=== PATIENT | male | born 1975 | race Caucasian/White ===

== ENCOUNTER 2021-12-14 11:13 | Emergency (ER) | payer SELFPAY ==
[2021-12-14 11:13] VITALS: BP 189/114; PULSE 82; RESP 16; TEMP 36.2; O2SAT 100; BMI 36.3
--- NOTE | 2021-12-14 11:20 | EKG12_ITS ---
Test Reason : CP Blood Pressure : / mmHG Vent. Rate : 091 BPM Atrial Rate : 091 BPM P-R Int : 198 ms QRS Dur : 104 ms QT Int : 352 ms P-R-T Axes : 037 050 055 degrees QTc Int : 432 ms Normal sinus rhythm Poor R wave progression Confirmed by ALAN YOUNG, FERNY ([id number]), editor index DELMA GRIFFITHS ([id number]) on 12/15/2021 11:05:49 AM Referred By: FAY Confirmed By:FERNY PHILLIPS MD
--- NOTE | 2021-12-14 11:20 | RAD_ITS ---
STUDY: X-RAY CHEST REASON FOR EXAM: Male, 46 years old. Chest pain TECHNIQUE: Single AP portable view of the chest. COMPARISON: None. FINDINGS: EKG electrodes are seen. The lungs are clear and expanded. There is no demonstrated pleural abnormality. There is borderline cardiomegaly. Normal mediastinum and daniela. Normal visualized pulmonary arteries. Normal visualized aortic arch and descending thoracic aorta. Normal visualized thoracic spine. Normal visualized ribs, clavicles, and shoulders. There is no demonstrated abnormality of the visualized soft tissue structures of the upper abdomen. RAD/Chest 1 View (Portable) IMPRESSION: Borderline cardiomegaly. Electronically Signed: Jairo Rain MD at 11:52 EST ,
[2021-12-14 11:56] VITALS: O2SAT 98
--- NOTE | 2021-12-14 12:10 | EDS_ITS ---
HPI History of Present Illness Chief Complaint: Chest Pain Narrative Narrative: 46-year-old male with history of hypertension and hyperlipidemia presenting with lower chest pain which he states feels sharp in nature. The pain is intermittent. He describes it as worsening with food. He states I eat like a freight train and went on.about 10 minutes later my lower chest hurts all the way down to my mid abdomen. He states that after his food settles pain improves. He denies history of acid reflux, gastric ulcers. Patient states he is not vomiting. He denies constipation or diarrhea. Patient was recently started on lisinopril 10 mg p.o. daily about 3 days ago. He notes that his blood pressure is elevated today. His father states that sometimes his blood pressure levels often sometimes is elevated. Patient does not have any cardiac history that he knows of. [facility] Medical History HTN (hypertension) Home Medications lisinopril 10 mg PO DAILY #30 tab 04/30/16 [Rx Last Taken Unknown] losartan 50 mg PO DAILY #30 tab 12/14/21 [Rx Last Taken Unknown] Allergy/AdvReac Type Severity Reaction Status Date / Time Penicillins [PCN] Allergy Hives Verified 12/14/21 11:17 Social History Smoking Status: Current every day smoker tobacco type: cigarettes ROS ROS ED Constitutional Constitutional ED: Denies chills or fever(s) Eyes Eyes: Denies blurry vision or change in vision ENT ENT ED: Denies rhinorrhea or sore throat Cardiovascular Cardiovascular: Reports as per HPI Respiratory/Chest Respiratory/Chest: Denies cough or dyspnea Gastrointestinal Gastrointestinal: Reports abdominal pain; Denies constipation, diarrhea, nausea or vomiting Genitourinary Genitourinary ED: Denies dysuria or hematuria Musculoskeletal Musculoskeletal: Denies arthralgias or myalgias Neurologic Neurologic: Denies headache(s) or weakness Psychiatric Psychiatric: Denies anxiety or depression EXAM Physical Exam Const Vital Signs: 12/14/21 11:13 12/14/21 11:35 12/14/21 11:56 Temperature 97.2 F L Temperature Source Temporal Pulse Rate 82 Respiratory Rate 16 Respiratory Effort Normal Non-Labored Blood Pressure 189/114 H Blood Pressure Mean 139 Pulse Ox 100 98 Oxygen Delivery Method Room Air Room Air 12/14/21 13:30 12/14/21 15:05 Temperature Temperature Source Pulse Rate 81 85 Respiratory Rate 16 22 H Respiratory Effort Blood Pressure 166/104 H 183/81 H Blood Pressure Mean 124 115 Pulse Ox 99 97 Oxygen Delivery Method Room Air Room Air Positive obese General Appearance ED: NAD; Negative for pallor Nutritional Appearance: obese HEENT Reports moist mucous membranes normocephalic and atraumatic Eyes PERRL and EOMs intact bilaterally Resp normal respiratory effort Effort and Inspection: respiratory distress Cardio regular rate and regular rhythm GI normal to inspection, nondistended, normoactive bowel sounds Extremity normal to inspection General Extremety ED: Negative for edema or tenderness General Extremity: Negative for edema Neuro oriented x3 Sensorium / Orientation: awake and alert Psych mental status grossly normal Skin General Skin Exam: Negative for jaundice or pallor Heart Score History: Slightly/Non-Suspicious ECG: Normal Age: >45 - <65 years Risk Factors: 1 or 2 Risk Factors Score: 2 MDM MDM MDM Narrative Medical decision making narrative: Patient presenting with chest pain which does appear to be more epigastric in nature and he does state that it radiates to his mid abdomen. Says after he eats heavily. He describes the pain as sharp. EKG obtained on arrival shows a normal sinus rhythm with a ventricular of 81 bpm without sign of ischemic change or dysrhythmia. Chest x-ray on my interpretation shows no acute cardiopulmonary process however he does appear to have borderline cardiomegaly. Radiologist agree. Patient is given 5 hydralazine and his blood pressure did not respond. He was followed with 10 mg of hydralazine his blood pressure is now 183/81. He feels improved. Patient was given follow-up with Dr. Thompson outpatient. I do not believe 10 mg of lisinopril is high enough dose and that will states previously on. I had his father go home and get his medications because he states he was prescribed a antihypertensive medicine 3 days ago and he returns with prednisone and doxycycline. Apparently the patient has not been on blood pressure medicine for months. Patient will be started on losartan 50 mg p.o. daily and given a prescription for this. He is counseled to keep a blood pressure diary. If he has any new or worsening symptoms he is to return to the ED. Impression: 1. Chest pain 2. Elevated blood pressure?established [id number] Lab Data Attestation: I reviewed the patient's lab results. Labs: Laboratory Results - last 24 hr 12/14/21 12/14/21 12/14/21 11:35 11:35 11:35 WBC 9.6 RBC 5.20 Hgb 15.3 Hct 44.5 MCV 85.6 MCH 29.4 MCHC 34.4 RDW Std Deviation 41.4 RDW Coeff of Desmond 13.2 Plt Count 307 MPV 10.8 Immature Gran % (Auto) 0.300 Neut % (Auto) 52.0 Lymph % (Auto) 39.7 [place] % (Auto) 5.3 Eos % (Auto) 2.0 Baso % (Auto) 0.7 Absolute Neuts (auto) 5.0 Absolute Lymphs (auto) 3.83 Nucleated RBC % 0 Sodium 140 Potassium 4.1 Chloride 107 Carbon Dioxide 28.0 Anion Gap 5 BUN 15 Creatinine 0.84 Estim Creat Clear Calc 107.44 Est GFR (MDRD) Af Amer 127 Est GFR (MDRD) Non-Af 105 BUN/Creatinine Ratio 17.8 Glucose 112 H Calcium 8.9 Total Bilirubin 0.30 Direct Bilirubin < 0.05 AST 20 ALT 24 Alkaline Phosphatase 69 Troponin I High Sens 7 Total Protein 7.5 Albumin 3.4 Globulin 4.1 Lipase 12/14/21 12/14/21 11:35 13:22 WBC RBC Hgb Hct MCV MCH MCHC RDW Std Deviation RDW Coeff of Desmond Plt Count MPV Immature Gran % (Auto) Neut % (Auto) Lymph % (Auto) [place] % (Auto) Eos % (Auto) Baso % (Auto) Absolute Neuts (auto) Absolute Lymphs (auto) Nucleated RBC % Sodium Potassium Chloride Carbon Dioxide Anion Gap BUN Creatinine Estim Creat Clear Calc Est GFR (MDRD) Af Amer Est GFR (MDRD) Non-Af BUN/Creatinine Ratio Glucose Calcium Total Bilirubin Direct Bilirubin AST ALT Alkaline Phosphatase Troponin I High Sens 7 Total Protein Albumin Globulin Lipase 125 Radiography Diagnostic Testing: Clinical Impression(s) from Imaging Studies Chest X-Ray 12/14/21 11:20 IMPRESSION: Borderline cardiomegaly. Electronically Signed: Jairo Rain MD at 11:52 EST , Discharge Plan Triage Chief Complaint: Chest Pain ED Provider: Ryan Newman Dx/Rx/DC Orders Instructions: High Blood Pressure Risk Factors, What Is High Blood Pressure?, ED Chest Pain, Uncertain Cause, ED Hypertension, Established Prescriptions: New losartan 50 mg tablet 50 mg PO DAILY Qty: 30 RF: 0 No Action lisinopril 10 MG tablet 10 mg PO DAILY Qty: 30 RF: 0 Primary Care Provider: Care Physician,No Primary Referrals: Jose R Thompson MD [STAFF PHYSICIAN] - As soon as possible Care Physician,No Primary [Primary Care Provider] - Disposition Disposition: Home, Self Care
[2021-12-14 12:22] LABS: Absolute Lymphocyte Count 3.83 X10^3/uL (0.83-4.51); Basophil# 0.07 X10^3/uL; Basophil% 0.7 % (0-1); Eosinophil# 0.19 X10^3/uL; Hematocrit 44.5 % (40-54); Hemoglobin 15.3 g/dL (13.0-16.5); Lymphocyte # 3.83 X10^3/ul (0.83-4.51); Lymphocyte % 39.7 % (19-41); Mean Corp Hgb Conc 34.4 g/dL (32-36); Mean Corpuscular Hgb 29.4 pg (27.0-32.0); Mean Corpuscular Volume 85.6 fL (80-94); Mean Platelet Vol. 10.8 fl (6.2-12.0); Monocyte# 0.51 X10^3/uL; Monocyte% 5.3 % (0-10); NRBC Flagged by Analyzer 0 % (0-5); Neutrophil # 5.01 X10^3/uL (2.7-7.7); Platelet Count 307 K/mm3 (150-450); RBC Distribution Width CV 13.2 % (11.6-14.6); RBC Distribution Width SD 41.4 fl (35.1-43.9); White Blood Count 9.6 K/mm3 (4.4-11.0)
[2021-12-14 12:34] LABS: Anion Gap 5 (5-15); BUN 15 mg/dL (7-18); BUN/Creat Ratio 17.8 RATIO (10-20); Calcium,Total 8.9 mg/dL (8.5-10.1); Chloride 107 mmol/L (98-107); Creatinine, Serum 0.84 mg/dL (0.70-1.30); EST Glomerular Filtration Rate 105 mL/min (>60); Est Glom Filt Rate - Afr Amer 127 mL/min (>60); Estimated Creatinine Clearance 107.44 ml/min; Glucose 112 mg/dL (74-106); Potassium 4.1 mmol/L (3.5-5.1); Sodium Level 140 mmol/L (136-145); Troponin-I HS 7 pg/mL (3.0-78.0)
[2021-12-14] MEDS: hydrALAZINE 20 MG/ML Vial 5 MG IV (12:45)
[2021-12-14 12:46] LABS: Lipase 125 U/L (73-393)
[2021-12-14 12:51] LABS: AST(SGOT) 20 U/L (15-37); Alanine Aminotransfer ALT/SGPT 24 U/L (16-61); Albumin, Serum 3.4 g/dL (3.2-5.0); Alkaline Phosphatase 69 U/L (45-117); Bilirubin, Direct < 0.05 mg/dL (0.00-0.30); Globulin 4.1 g/dL (2.2-4.2); Protein, Total 7.5 g/dL (6.4-8.2)
[2021-12-14 13:30] VITALS: BP 166/104; PULSE 81; RESP 16; O2SAT 99
[2021-12-14 13:55] LABS: Troponin-I HS 7 pg/mL (3.0-78.0)
[2021-12-14] MEDS: hydrALAZINE 20 MG/ML Vial 10 MG IV (14:14)
[2021-12-14 15:05] VITALS: BP 183/81; PULSE 85; RESP 22; O2SAT 97
[2021-12-14 17:06] VITALS: BP 182/75; PULSE 80; RESP 20; O2SAT 97
[2021-12-14] MEDS: Losartan Potassium 50 MG Tablet PO (17:26)
[2021-12-14 17:28] VITALS: BP 171/111; PULSE 89; RESP 15; O2SAT 98
== END 2021-12-14 17:29 | disposition home or self-care (01) ==
PROVIDERS: Emergency Provider Student in an Organized Health Care Education/Training Program; Visit Provider Student in an Organized Health Care Education/Training Program
DX: R07.9 Chest pain, unspecified (principal); I10 Essential (primary) hypertension; F17.210 Nicotine dependence, cigarettes, uncomplicated; E78.5 Hyperlipidemia, unspecified
CPT/HCPCS: 71045; 80048; 80076; 83690; 84484; 85025; 93005; 96374; 96376; 99285

== ENCOUNTER 2022-11-15 21:37 | Emergency (ER) | payer MEDICARE, MEDICAID, SELFPAY ==
[2022-11-15 21:37] VITALS: BP 178/107; PULSE 96; RESP 18; TEMP 36.8; O2SAT 96; BMI 33.5
--- NOTE | 2022-11-15 21:58 | EX.ED.VIS.UR ---
HPI HPI - URI History of Present Illness Chief Complaint: Cough Informant: patient Onset/Context/Timing Onset: Weeks (1) Context: Gradual Onset Timing: Continuous Quality: prod cough Current Severity: Moderate Maximum Severity: Moderate Worsened by: - (nothing) Associated Symptoms Associated Symptoms: Positive for Nasal Congestion, Headache, Shortness of Breath (at times), Chest Pain (just sternal soreness from coughing) and Productive Cough; Negative for Sinus Pressure, Myalgias, Nausea, Vomiting, Diarrhea or Hemoptysis Narrative Narrative: Patient has had a cough of the past week, some white sputum on occasion no blood. Mild shortness of breath off and on, he is a smoker. No fevers or chills. He feels warm right now but he is afebrile at 98.2. Mild headache, no myalgias. No known sick contacts. Vaccinated against COVID but no flu shot this year. He has some chest soreness and bilateral rib soreness from lots of coughing, it started after days of lots of coughing. No leg swelling. No angina symptoms. ROS ROS ED Constitutional Constitutional ED: Denies chills or fever(s) ENT ENT ED: Reports nasal congestion and rhinorrhea; Denies sore throat Cardiovascular Cardiovascular: Denies chest pain or palpitations Respiratory/Chest Respiratory/Chest: Reports cough, dyspnea and sputum Gastrointestinal Gastrointestinal: Denies abdominal pain, diarrhea, nausea or vomiting Genitourinary Genitourinary ED: Denies dysuria or hematuria Musculoskeletal Musculoskeletal: Denies myalgias or neck pain Integumentary Denies abscess or rash Neurologic Neurologic: Reports headache(s); Denies paresthesias or weakness Psychiatric Psychiatric: Denies depression or suicidal thoughts Endocrine Endocrinology: Denies polydipsia or polyuria [facility] Medical History Asthma HTN (hypertension) Seizure Home Medications lisinopril 10 mg tablet 10 mg PO DAILY #30 tabs 04/30/16 [Rx Last Taken Unknown] losartan 50 mg tablet 50 mg PO DAILY #30 tabs 12/14/21 [Rx Last Taken Unknown] albuterol sulfate 90 mcg/actuation aerosol inhaler 2 puff inhalation Q4H PRN shortness of breath or wheezing #6.7 grams 11/15/22 [Rx Last Taken Unknown] benzonatate 100 mg capsule 200 mg PO TID PRN PRN Cough #20 CAPSULES 11/15/22 [Rx Last Taken Unknown] Allergy/AdvReac Type Severity Reaction Status Date / Time Penicillins [PCN] Allergy Hives Verified 11/15/22 21:40 Social History Smoking Status: Current every day smoker tobacco type: cigarettes EXAM Physical Exam Const Vital Signs: 11/15/22 21:37 11/15/22 21:44 11/15/22 22:23 Temperature 98.2 F Temperature Source Temporal Pulse Rate 96 97 Respiratory Rate 18 22 H Respiratory Effort Normal Respiratory Depth Respiratory Pattern Tachypnea Blood Pressure 178/107 H Blood Pressure Mean 130 Pulse Ox 96 Oxygen Delivery Method Room Air 11/15/22 22:23 Temperature Temperature Source Pulse Rate Respiratory Rate 26 H Respiratory Effort Normal Non-Labored Short of Breath Respiratory Depth Shallow Respiratory Pattern Tachypnea Blood Pressure Blood Pressure Mean Pulse Ox 93 Oxygen Delivery Method Room Air Positive well nourished, well developed and obese Constitutional Narrative: Well-appearing. Conversive in full sentences. General Appearance ED: well developed and NAD Nutritional Appearance: obese HEENT Reports moist mucous membranes normocephalic and atraumatic Face and Sinus: Negative for sinus tenderness Throat: Negative for posterior oropharynx abnormal Eyes PERRL and EOMs intact bilaterally Neck no lymphadenopathy, supple and no meningeal signs Resp normal respiratory effort Resp Narrative: Inspiratory and expiratory wheezes no rales or rhonchi, no distress. Cardio no murmurs Rate: regular rate Rhythm: regular rhythm GI non-tender and non-distended Auscultation: normoactive bowel sounds Back/Spine no CVA tenderness and normal ROM Extremity normal to inspection and full ROM Neuro oriented x3, CN's II-XII intact bilaterally and no sensory deficits noted Sensorium / Orientation: alert Motor Exam: strength 5/5 throughout Psych mental status grossly normal Skin Lesions: no lesions Rashes: no rashes MDM MDM MDM Narrative Medical decision making narrative: 2 view chest x-ray was obtained and on my interpretation shows no acute infiltrates or pleural effusions. Radiology in agreement negative for anything acute. COVID and influenza swabs are negative. Patient was treated with an albuterol aerosol he does feel better. Reassured, I suspect he has wheezy bronchitis no antibiotics indicated. We will prescribe him something for his cough in addition to albuterol inhaler, supportive care advised we discussed reasons to return. He needs to follow-up for blood pressure recheck since his pressure is 178/107. Counseled on smoking cessation. Radiography Diagnostic Testing: Clinical Impression(s) from Imaging Studies Chest X-Ray 11/15/22 22:09 IMPRESSION: No radiographic evidence of acute cardiopulmonary disease. Electronically Signed: Donald Kaiser MD at 22:22 EST , Discharge Plan Triage Chief Complaint: Cough ED Provider: Ellis Harris Dx/Rx/DC Orders Clinical Impression: Acute wheezy bronchitis, Episode of hypertension Instructions: Blood Pressure Check Steps, ED Bronchitis with Wheezing (Adult) Prescriptions: New albuterol sulfate 90 mcg/actuation HFA aerosol inhaler 2 puff inhalation Q4H PRN (Reason: shortness of breath or wheezing) Qty: 6.7 0RF benzonatate [benzonatate] 100 mg capsule 200 mg PO TID PRN PRN (Reason: Cough) Qty: 20 0RF No Action lisinopril 10 MG tablet 10 mg PO DAILY Qty: 30 0RF losartan 50 mg tablet 50 mg PO DAILY Qty: 30 0RF Primary Care Provider: Care Physician,No Primary Referrals: Care Physician,No Primary [Primary Care Provider] - Doctor,Your [Non-Staff] - 1 Week if not improving Disposition Disposition: Home, Self Care
--- NOTE | 2022-11-15 22:09 | RAD_ITS ---
INDICATION: cough, sob EXAMINATION/TECHNIQUE: X-RAY - XR Chest 2 Views COMPARISON: December 14, 2021 FINDINGS: LINES/DEVICES: None. LUNGS: No consolidation, edema or effusion. No pneumothorax. MEDIASTINUM AND CARDIOVASCULAR STRUCTURES: Cardiac silhouette not enlarged. Central airways and mediastinal contour are unremarkable. BONES AND SOFT TISSUES: Unremarkable. RAD/Chest PA and Lateral IMPRESSION: No radiographic evidence of acute cardiopulmonary disease. Electronically Signed: Donald Kaiser MD at 22:22 EST ,
[2022-11-15 22:23] VITALS: PULSE 97; RESP 22; RESP 26; O2SAT 93
[2022-11-15] MEDS: Albuterol 2.5 MG/3 ML VIAL.NEB. INHALATION (22:23)
[2022-11-15 23:31] VITALS: BP 163/100; PULSE 85; RESP 18; O2SAT 94
== END 2022-11-15 23:34 | disposition home or self-care (01) ==
PROVIDERS: Emergency Provider Emergency Medicine; Visit Provider Emergency Medicine
DX: J20.9 Acute bronchitis, unspecified (principal); F17.210 Nicotine dependence, cigarettes, uncomplicated; R51.9 Headache, unspecified; I10 Essential (primary) hypertension; J45.909 Unspecified asthma, uncomplicated; E66.9 Obesity, unspecified; Z20.822 Contact with and (suspected) exposure to COVID-19
CPT/HCPCS: 71046; 87428; 94640; 99252; 99282; G0463

== ENCOUNTER → 2022-12-12 | Outpatient (CLI) | payer MEDICARE, MEDICAID, SELFPAY ==
[2022-12-12 10:13] LABS: Absolute Lymphocyte Count 2.86 X10^3/uL (0.83-4.51); Absolute Neutrophil Count 3.5 X10^3/uL (2.0-7.7); Basophil# 0.06 X10^3/uL; Basophil% 0.8 % (0-1); Eosinophil# 0.27 X10^3/uL; Eosinophils% 3.7 % (0-5); Hematocrit 43.9 % (40-54); Hemoglobin 14.1 g/dL (13.0-16.5); Lymphocyte # 2.86 X10^3/ul (0.83-4.51); Lymphocyte % 39.3 % (19-41); Mean Corp Hgb Conc 32.1 g/dL (32-36); Mean Corpuscular Hgb 28.8 pg (27.0-32.0); Mean Corpuscular Volume 89.6 fL (80-94); Mean Platelet Vol. 9.9 fl (6.2-12.0); Monocyte# 0.59 X10^3/uL; Monocyte% 8.1 % (0-10); NRBC Flagged by Analyzer 0 % (0-5); Neutrophil # 3.45 X10^3/uL (2.7-7.7); Neutrophil % 47.5 % (47-70); Platelet Count 273 K/mm3 (150-450); RBC Distribution Width CV 12.8 % (11.6-14.6); RBC Distribution Width SD 41.6 fl (35.1-43.9); White Blood Count 7.3 K/mm3 (4.4-11.0)
[2022-12-12 11:05] LABS: ALB/GLOB Ratio 0.8 RATIO (0.9-2.4); AST(SGOT) 13 U/L (15-37); Alanine Aminotransfer ALT/SGPT 18 U/L (16-61); Albumin, Serum 3.5 g/dL (3.2-5.0); Alkaline Phosphatase 55 U/L (45-117); Anion Gap 7 (5-15); BUN 24 mg/dL (7-18); BUN/Creat Ratio 30.3 RATIO (10-20); Calcium,Total 9.3 mg/dL (8.5-10.1); Chloride 106 mmol/L (98-107); Cholesterol 195 mg/dL (200); Creatinine, Serum 0.79 mg/dL (0.70-1.30); EST Glomerular Filtration Rate 112 mL/min (>60); Est Glom Filt Rate - Afr Amer 135 mL/min (>60); Globulin 4.4 g/dL (2.2-4.2); Glucose 111 mg/dL (74-106); High Density Lipoprotein 33 mg/dL; Potassium 3.8 mmol/L (3.5-5.1); Protein, Total 7.9 g/dL (6.4-8.2); Sodium Level 138 mmol/L (136-145); Thyroid Stim Hormone (TSH) 2.44 uIU/mL (0.358-3.74); Triglycerides 185 mg/dL; Very Low Density Lipoprotein 37 mg/dL (5-40)
== END | disposition home or self-care (01) ==
LOC: MFPLAB 08:35
PROVIDERS: PCP Family Medicine; Referring Provider Family Medicine; Visit Provider Family Medicine
DX: I10 Essential (primary) hypertension (principal)
CPT/HCPCS: 36415; 80053; 80061; 84443; 85025

== ENCOUNTER 2023-02-20 21:32 | Emergency (ER) | payer MEDICARE, MEDICAID, SELFPAY ==
[2023-02-20 21:34] VITALS: BP 188/124; PULSE 95; RESP 18; TEMP 36.1; O2SAT 95; BMI 40.2
[2023-02-20 22:06] LABS: Absolute Lymphocyte Count 3.08 X10^3/uL (0.83-4.51); Basophil# 0.06 X10^3/uL; Basophil% 0.6 % (0-1); Eosinophil# 0.08 X10^3/uL; Eosinophils% 0.8 % (0-5); Hematocrit 42.3 % (40-54); Hemoglobin 14.1 g/dL (13.0-16.5); Lymphocyte # 3.08 X10^3/ul (0.83-4.51); Mean Corp Hgb Conc 33.3 g/dL (32-36); Mean Corpuscular Volume 86.9 fL (80-94); Mean Platelet Vol. 9.3 fl (6.2-12.0); Monocyte% 4.2 % (0-10); NRBC Flagged by Analyzer 0 % (0-5); Neutrophil # 5.97 X10^3/uL (2.7-7.7); Neutrophil % 62.2 % (47-70); Platelet Count 263 K/mm3 (150-450); RBC Distribution Width CV 13.2 % (11.6-14.6); RBC Distribution Width SD 41.7 fl (35.1-43.9); Red Blood Count 4.87 M/mm3 (4.6-6.2); White Blood Count 9.6 K/mm3 (4.4-11.0)
[2023-02-20 22:27] LABS: ALB/GLOB Ratio 0.9 RATIO (0.9-2.4); AST(SGOT) 19 U/L (15-37); Alanine Aminotransfer ALT/SGPT 23 U/L (16-61); Albumin, Serum 3.8 g/dL (3.2-5.0); Alkaline Phosphatase 64 U/L (45-117); Anion Gap 3 (5-15); BUN 17 mg/dL (7-18); BUN/Creat Ratio 14.4 RATIO (10-20); Calcium,Total 9.6 mg/dL (8.5-10.1); Chloride 109 mmol/L (98-107); Creatinine, Serum 1.18 mg/dL (0.70-1.30); EST Glomerular Filtration Rate 70 mL/min (>60); Est Glom Filt Rate - Afr Amer 85 mL/min (>60); Estimated Creatinine Clearance 73.13 ml/min; Globulin 4.1 g/dL (2.2-4.2); Glucose 109 mg/dL (74-106); Potassium 4.6 mmol/L (3.5-5.1); Protein, Total 7.9 g/dL (6.4-8.2); Sodium Level 139 mmol/L (136-145)
--- NOTE | 2023-02-20 23:13 | EDS_ITS ---
HPI History of Present Illness Chief Complaint: Abd Pain Narrative Narrative: 47-year-old male here with intra-abdominal pain nausea vomiting. Patient states symptoms started today. Notes initially started with diffuse abdominal pain. He does note nausea and vomiting. Denies any hematemesis, bilious vomitus. Denies history of abdominal surgeries. Notes last bowel movement was 2 days ago with no melena or hematochezia. Denies history abdominal surgeries. Denies any chest pain or shortness of breath. Denies any recent fever. Denies any recent travel or sick contacts. PFSH PFS Medical History Asthma HTN (hypertension) Seizure Home Medications lisinopril 10 mg tablet 10 mg PO DAILY #30 tabs 04/30/16 [Rx Last Taken Unknown] losartan 50 mg tablet 50 mg PO DAILY #30 tabs 12/14/21 [Rx Last Taken Unknown] albuterol sulfate 90 mcg/actuation aerosol inhaler 2 puff inhalation Q4H PRN shortness of breath or wheezing #6.7 grams 11/15/22 [Rx Last Taken Unknown] benzonatate 100 mg capsule 200 mg PO TID PRN PRN Cough #20 CAPSULES 11/15/22 [Rx Last Taken Unknown] ondansetron 4 mg disintegrating tablet 4 mg PO Q8H PRN nausea and vomiting 3 days #9 tabs 02/21/23 [Rx Last Taken Unknown] Allergy/AdvReac Type Severity Reaction Status Date / Time Penicillins [PCN] Allergy Hives Verified 02/20/23 21:33 Social History Smoking Status: Current every day smoker tobacco type: cigarettes ROS ROS ED ROS Narrative Constitutional: Denies fever HEENT: Denies sore throat Neck: Denies neck pain Cardiovascular: Denies chest pain, syncope Respiratory: Denies shortness of breath GI: Abdominal pain nausea vomiting : Denies changes in urinary habits Musculoskeletal: Denies muscle or joint pain Neurologic: Denies numbness weakness or loss of sensation Skin denies rash EXAM Physical Exam Narrative Exam Narrative: Nursing triage notes reviewed, Vital signs reviewed Constitutional: please see mdm HENT: MMM Eyes: Pupils equal round and reactive to light, Extraocular muscles intact Neck: No stridor, no JVD, full neck ROM Lungs: Clear to auscultation, No wheezing or rales. No increased work of breathing, no conversational dyspnea, no accessory muscle use, no nasal flaring. No respiratory distress noted Heart: Regular rate and rhythm, No murmurs, No rubs and No gallops, 2+ distal pulses (radial, femoral, posterior tibial) in all extremities Abdomen: Soft, diffuse tenderness but no rigidity, rebound or guarding, no obvious peritoneal signs, no palpable pulsatile abdominal masses, no auscultated abdominal bruit : No CVAT Extremities: No edema Neuro: No focal neurological deficits, cranial nerves II through XII intact, 5/5 strength in all extremities. Intact sensation to light touch in all extremities, 2+ reflexes bilateral patella dens. Normal gait. No ataxia. Skin: No rash or lesions noted Const Vital Signs: 02/20/23 21:34 Temperature 97 F L Temperature Source Oral Pulse Rate 95 Respiratory Rate 18 Blood Pressure 188/124 H Blood Pressure Mean 145 Pulse Ox 95 Oxygen Delivery Method Room Air MDM MDM MDM Narrative Medical decision making narrative: Chief Complaint: Abdominal pain nausea vomiting External records reviewed: No recent advanced imaging of the abdomen noted I considered the following differential diagnosis: Acute surgical pathology the abdomen, perforation, pancreatitis, hepatobiliary pathology, dehydration, electrolyte abnormality Patient was hypertensive initially, afebrile, nontoxic-appearing. Exam was not consistent with acute surgical pathology. I obtained a broad lab work-up to further elucidate etiology of the patient's complaints. Labs not evidence of systemic inflammation, signs of pancreatitis, hepatobiliary pathology, significant electrolyte abnormalities, significant anemia. Repeat abdominal exam was benign. I have a low suspicion as patient is abnormal life limiting etiology. Repeat his vital signs blood pressure improved. He is able to pass p.o. challenge he is appropriate for discharge home. Factors affecting care: Hypertension Social determinants of health: Poor health literacy History obtained from others: None Shared decision making: I will have a discussion with the patient and or visitors regarding risk/benefits of further testing or admission. They will be made aware of of the risk/benefits inherent in this decision they will be given the opportunity to voice understanding. Consults: none Lab Data Attestation: I reviewed the patient's lab results. Lab results narrative: CBC without leukocytosis, severe anemia, no thrombocytopenia. BMP without evidence of significant electrolyte abnormalities, no anion gap, no acute kidney injury. Lipase is wnl indicating no pancreatic inflammation. LFTs show no evidence of hepatobiliary pathology. Labs: Laboratory Results - last 24 hr 02/20/23 02/20/23 02/20/23 22:00 22:00 22:00 WBC 9.6 RBC 4.87 Hgb 14.1 Hct 42.3 MCV 86.9 MCH 29.0 MCHC 33.3 RDW Std Deviation 41.7 RDW Coeff of Desmond 13.2 Plt Count 263 MPV 9.3 Immature Gran % (Auto) 0.200 Neut % (Auto) 62.2 Lymph % (Auto) 32.0 [place] % (Auto) 4.2 Eos % (Auto) 0.8 Baso % (Auto) 0.6 Absolute Neuts (auto) 6.0 Absolute Lymphs (auto) 3.08 Nucleated RBC % 0 Sodium 139 Potassium 4.6 Chloride 109 H Carbon Dioxide 27.0 Anion Gap 3 L BUN 17 Creatinine 1.18 Estim Creat Clear Calc 73.13 Est GFR (MDRD) Af Amer 85 Est GFR (MDRD) Non-Af 70 BUN/Creatinine Ratio 14.4 Glucose 109 H Calcium 9.6 Total Bilirubin 0.40 AST 19 ALT 23 Alkaline Phosphatase 64 Total Protein 7.9 Albumin 3.8 Globulin 4.1 Albumin/Globulin Ratio 0.9 Lipase 29 Discharge Plan Triage Chief Complaint: Abd Pain ED Provider: Hermes Richmond Dx/Rx/DC Orders Instructions: ED Abdominal Pain Unkn Cause Male... Prescriptions: New ondansetron 4 mg tablet,disintegrating 4 mg PO Q8H PRN (Reason: nausea and vomiting) 3 Days Qty: 9 0RF No Action lisinopril 10 MG tablet 10 mg PO DAILY Qty: 30 0RF losartan 50 mg tablet 50 mg PO DAILY Qty: 30 0RF albuterol sulfate 90 mcg/actuation HFA aerosol inhaler 2 puff inhalation Q4H PRN (Reason: shortness of breath or wheezing) Qty: 6.7 0RF benzonatate [benzonatate] 100 mg capsule 200 mg PO TID PRN PRN (Reason: Cough) Qty: 20 0RF Primary Care Provider: Ame Fenton Referrals: Ame Fenton, DO [Primary Care Provider] - Activity Restrictions/Additional Instructions: Thank you for trusting us with your care today! Please take Tylenol (2 pills, 650 mg), ibuprofen (2 pills, 400 mg) every 6 hours as needed for pain and fever control. Please take Zofran as needed for nausea vomiting control. Please return to the emergency department if your symptoms change or worsen. Please follow with your primary care physician for further outpatient evaluation and management. Disposition Disposition: Home, Self Care
[2023-02-20] MEDS: 0.9% Normal Saline 1,000 ML 999 ML IV (23:40)
[2023-02-20] MEDS: Ondansetron 4 MG/2 ML Vial IV (23:40)
[2023-02-20 23:48] LABS: Lipase 29 U/L (13-75)
--- NOTE | 2023-02-21 00:20 | ED.RN ---
Pt refused IV morphine with pain 0/10. Dr. Jordan notified.
[2023-02-21 00:31] VITALS: BP 157/118; PULSE 77; RESP 17; O2SAT 97
== END 2023-02-21 00:45 | disposition home or self-care (01) ==
PROVIDERS: Emergency Provider Emergency Medicine; PCP Family Medicine; Visit Provider Emergency Medicine
DX: R10.84 Generalized abdominal pain (principal); R11.2 Nausea with vomiting, unspecified; F17.210 Nicotine dependence, cigarettes, uncomplicated; I10 Essential (primary) hypertension; J45.909 Unspecified asthma, uncomplicated
CPT/HCPCS: 80053; 83690; 85025; 96361; 96374; 99283; J7030; A4216; J2405

== ENCOUNTER 2023-04-19 11:09 | Emergency (ER) | payer MEDICARE, MEDICAID, SELFPAY ==
[2023-04-19 11:11] VITALS: BP 160/107; PULSE 105; RESP 16; TEMP 36.7; O2SAT 97; BMI 38.0
[2023-04-19 11:18] VITALS: BP 177/99; PULSE 98; RESP 18; O2SAT 96
--- NOTE | 2023-04-19 11:36 | EDS_ITS ---
HPI <DIEGO Corley - Last Filed: 04/19/23 13:13> History of Present Illness Chief Complaint: Abd Pain Narrative Narrative: Patient presenting today after an episode of vomiting that occurred this afternoon that had streaks of bright red blood in it. He denies any coffee- ground emesis. He reports that he was walking to his family member's house and stopped to use the bathroom at a laundromat because he felt nauseous, and had one episode of vomiting. He no longer feels nauseous, nor does he have abdominal pain. He reports that he has had intermittent epigastric abdominal pain and burning pain in his esophagus for over 2 months that is worse after eating. He has no history of gastric ulcers, denies any blood in his stool. He does take aspirin twice daily, denies alcohol use. He denies fever, chills, urinary symptoms, chest pain, SOB. PFSH <DIEGO Corley - Last Filed: 04/19/23 13:13> [facility] Medical History Asthma HTN (hypertension) Seizure Home Medications lisinopril 10 mg tablet 10 mg PO DAILY #30 tabs 04/30/16 [Rx Last Taken Unknown] losartan 50 mg tablet 50 mg PO DAILY #30 tabs 12/14/21 [Rx Last Taken Unknown] albuterol sulfate 90 mcg/actuation aerosol inhaler 2 puff inhalation Q4H PRN shortness of breath or wheezing #6.7 grams 11/15/22 [Rx Last Taken Unknown] benzonatate 100 mg capsule 200 mg PO TID PRN PRN Cough #20 CAPSULES 11/15/22 [Rx Last Taken Unknown] ondansetron 4 mg disintegrating tablet 4 mg PO Q8H PRN nausea and vomiting 3 days #9 tabs 02/21/23 [Rx Last Taken Unknown] pantoprazole 40 mg tablet,delayed release (Protonix) 40 mg PO DAILY #30 tabs 04/19/23 [Rx Last Taken Unknown] Allergy/AdvReac Type Severity Reaction Status Date / Time Penicillins [PCN] Allergy Hives Verified 04/19/23 11:17 Social History Smoking Status: Current every day smoker tobacco type: cigarettes ROS <DIEGO Corley - Last Filed: 04/19/23 13:13> ROS ED Constitutional Constitutional ED: Denies chills or fever(s) Cardiovascular Cardiovascular: Denies chest pain Respiratory/Chest Respiratory/Chest: Denies cough or dyspnea Gastrointestinal Gastrointestinal: Reports nausea and vomiting; Denies abdominal pain, constipation or diarrhea Genitourinary Genitourinary ED: Denies dysuria, hematuria or urinary frequency Musculoskeletal Musculoskeletal: Denies arthralgias or myalgias Integumentary Denies abscess, Abrasions or rash Neurologic Neurologic: Denies weakness Psychiatric Psychiatric: Denies anxiety or depression EXAM <DIEGO Corley - Last Filed: 04/19/23 13:13> Physical Exam Const Vital Signs: 04/19/23 11:11 04/19/23 11:18 04/19/23 12:19 Temperature 98.1 F Temperature Source Temporal Pulse Rate 105 H 98 68 Respiratory Rate 16 18 Blood Pressure 160/107 H 177/99 H 141/75 H Blood Pressure Mean 124 125 97 Pulse Ox 97 96 92 Oxygen Delivery Method Room Air Room Air Room Air 04/19/23 12:52 Temperature Temperature Source Pulse Rate 71 Respiratory Rate 18 Blood Pressure 131/98 H Blood Pressure Mean Pulse Ox 96 Oxygen Delivery Method Positive well nourished, well developed and no apparent distress General Appearance ED: well developed HEENT Reports normocephalic and head/scalp atraumatic Mouth ED: Yes moist mucous membranes normal Eyes PERRL and EOMs intact bilaterally Neck full ROM and supple Chest Wall inspection of chest normal Resp normal respiratory effort and clear to auscultation bilaterally Cardio regular rate and regular rhythm GI soft to palpation, non-tender, non-distended and no masses Back/Spine normal ROM and normal to inspection Extremity normal to inspection and full ROM Neuro oriented x3, CN's II-XII intact bilaterally, moves all extremities, no focal motor deficits and no sensory deficits noted Sensorium / Orientation: awake and alert Psych mental status grossly normal and thought process normal Skin no rashes or lesions noted and no wounds <Dr. Sergio Ellis DO - Last Filed: 04/19/23 16:44> Physical Exam Const Vital Signs: 04/19/23 11:11 04/19/23 11:18 04/19/23 12:19 Temperature 98.1 F Temperature Source Temporal Pulse Rate 105 H 98 68 Respiratory Rate 16 18 Blood Pressure 160/107 H 177/99 H 141/75 H Blood Pressure Mean 124 125 97 Pulse Ox 97 96 92 Oxygen Delivery Method Room Air Room Air Room Air 04/19/23 12:52 Temperature Temperature Source Pulse Rate 71 Respiratory Rate 18 Blood Pressure 131/98 H Blood Pressure Mean Pulse Ox 96 Oxygen Delivery Method [facility] <DIEGO Corley - Last Filed: 04/19/23 13:13> [facility] Narrative Medical decision making narrative: Patient presenting today due to epigastric abdominal pain that he has had for close to 2 months, and an episode of nausea and vomiting that occurred today. He saw streaks of bright red blood in his vomit, denies coffee-ground emesis. He has a burning sensation in his esophagus after eating but is not on a PPI. Abdominal pain is worsened after eating as well. He reports he is not currently having any abdominal pain. I have considered GERD, peptic ulcer, gastric ulcer, pancreatitis. Labs to be obtained to rule out leukocytosis, anemia electrolyte abnormality, hepatobiliary etiology, and to check a lipase. Labs overall are unremarkable. Patient was given Zofran and Protonix here. I have given him a referral with Dr. Pitts and a prescription for Protonix. Lab Data Attestation: I reviewed the patient's lab results. Labs: Laboratory Results - last 24 hr 04/19/23 04/19/23 11:30 11:30 WBC 7.3 RBC 4.83 Hgb 13.9 Hct 41.8 MCV 86.5 MCH 28.8 MCHC 33.3 RDW Std Deviation 40.7 RDW Coeff of Desmond 13.1 Plt Count 254 MPV 10.0 Immature Gran % (Auto) 0.400 Neut % (Auto) 65.2 Lymph % (Auto) 26.2 Ashley % (Auto) 5.6 Eos % (Auto) 1.9 Baso % (Auto) 0.7 Absolute Neuts (auto) 4.7 Absolute Lymphs (auto) 1.91 Nucleated RBC % 0 Sodium 142 Potassium 4.2 Chloride 109 H Carbon Dioxide 25.0 Anion Gap 8 BUN 18 Creatinine 0.95 Estim Creat Clear Calc 90.84 Est GFR (MDRD) Af Amer 110 Est GFR (MDRD) Non-Af 91 BUN/Creatinine Ratio 19.0 Glucose 128 H Calcium 9.3 Total Bilirubin 0.30 AST 16 ALT 17 Alkaline Phosphatase 69 Total Protein 7.7 Albumin 3.6 Globulin 4.1 Albumin/Globulin Ratio 0.9 Lipase 27 <Dr. Sergio Ellis, DO - Last Filed: 04/19/23 16:44> [facility] Lab Data Labs: Laboratory Results - last 24 hr 04/19/23 04/19/23 11:30 11:30 WBC 7.3 RBC 4.83 Hgb 13.9 Hct 41.8 MCV 86.5 MCH 28.8 MCHC 33.3 RDW Std Deviation 40.7 RDW Coeff of Desmond 13.1 Plt Count 254 MPV 10.0 Immature Gran % (Auto) 0.400 Neut % (Auto) 65.2 Lymph % (Auto) 26.2 Ashley % (Auto) 5.6 Eos % (Auto) 1.9 Baso % (Auto) 0.7 Absolute Neuts (auto) 4.7 Absolute Lymphs (auto) 1.91 Nucleated RBC % 0 Sodium 142 Potassium 4.2 Chloride 109 H Carbon Dioxide 25.0 Anion Gap 8 BUN 18 Creatinine 0.95 Estim Creat Clear Calc 90.84 Est GFR (MDRD) Af Amer 110 Est GFR (MDRD) Non-Af 91 BUN/Creatinine Ratio 19.0 Glucose 128 H Calcium 9.3 Total Bilirubin 0.30 AST 16 ALT 17 Alkaline Phosphatase 69 Total Protein 7.7 Albumin 3.6 Globulin 4.1 Albumin/Globulin Ratio 0.9 Lipase 27 Treatment and Re-Evaluation :: I have personally performed a face to face assessment of the patient and have reviewed the ATTYANA Note. I performed a substantive portion of the visit including all aspects of the following. My feliciano findings include: History: Patient presents with abdominal pain that became worse today. Patient states she had some nausea and vomiting with this. Patient states she has some streaks of blood in his emesis. Patient denies any martín hematemesis. Patient denies any coffee-ground emesis. Patient denies any melena or hematochezia. Patient states his pain is localized to the epigastric area. Patient states it radiates up into his chest. Patient denies any fevers or chills. Exam: Vital signs are stable. Patient is afebrile. Patient is in no acute distress. Oral mucosa is pink and moist. Neck is supple. Trachea is midline. There is no JVD. Heart was regular rate and rhythm. Lungs are clear and equal bilaterally. Abdomen is soft. Bowel sounds are normal. There is tenderness of the epigastric area. There is no rebound or guarding noted. Cranial nerves II through XII are intact. There are no focal motor or sensory deficits. Medical Decision Making: Differential diagnosis includes gastric ulcer, peptic ulcer, GERD, gastritis, and pancreatitis. CBC will be obtained to assess for leukocytosis and anemia. Comprehensive metabolic profile will be obtained to assess for electrolyte abnormality, renal function, and hepatic function. Lipase will be obtained to assess for pancreatitis. Patient was given Zofran and Protonix here. CBC was reviewed and was essentially within normal limits. Comprehensive metabolic profile was reviewed and was within normal limits. Lipase was reviewed and was normal. Patient was advised of his findings. Patient was instructed to follow-up with his primary care physician in 5 to 7 days. Patient was given a prescription for Protonix. Patient was instructed to return if worse in any way. Patient understood and was agreeable with the plan. All questions were answered. Discharge Plan Triage Chief Complaint: Abd Pain Other Complaint: Nausea/Vomiting ED Midlevel Provider: Aida Mendoza ED Provider: Sergio Ellis Dx/Rx/DC Orders Clinical Impression: Nausea & vomiting, Abdominal pain, Bloody emesis Instructions: ED Upper GI Bleeding (Stable) Prescriptions: New pantoprazole [Protonix] 40 mg tablet,delayed release (DR/EC) 40 mg PO DAILY Qty: 30 0RF No Action lisinopril 10 MG tablet 10 mg PO DAILY Qty: 30 0RF losartan 50 mg tablet 50 mg PO DAILY Qty: 30 0RF albuterol sulfate 90 mcg/actuation HFA aerosol inhaler 2 puff inhalation Q4H PRN (Reason: shortness of breath or wheezing) Qty: 6.7 0RF benzonatate [benzonatate] 100 mg capsule 200 mg PO TID PRN PRN (Reason: Cough) Qty: 20 0RF ondansetron 4 mg tablet,disintegrating 4 mg PO Q8H PRN (Reason: nausea and vomiting) 3 Days Qty: 9 0RF Primary Care Provider: Ame Fenton Referrals: Ame Fenton DO [Primary Care Provider] - 3-5 Days Tommy Pitts DO [Med Staff - Active Staff] - 5-7 Days Activity Restrictions/Additional Instructions: Please follow-up with your PCP and the GI doctor. Return for any worsening of symptoms. Disposition Disposition: Home, Self Care Discharge Date/Time: 04/19/23 12:53
[2023-04-19] MEDS: Pantoprazole Sodium 40 MG Tablet PO (11:39)
[2023-04-19] MEDS: Ondansetron 4 MG/2 ML Vial IV (11:39)
[2023-04-19 11:40] LABS: Absolute Lymphocyte Count 1.91 X10^3/uL (0.83-4.51); Absolute Neutrophil Count 4.7 X10^3/uL (2.0-7.7); Basophil# 0.05 X10^3/uL; Basophil% 0.7 % (0-1); Eosinophil# 0.14 X10^3/uL; Eosinophils% 1.9 % (0-5); Hematocrit 41.8 % (40-54); Hemoglobin 13.9 g/dL (13.0-16.5); Lymphocyte # 1.91 X10^3/ul (0.83-4.51); Lymphocyte % 26.2 % (19-41); Mean Corp Hgb Conc 33.3 g/dL (32-36); Mean Corpuscular Hgb 28.8 pg (27.0-32.0); Mean Corpuscular Volume 86.5 fL (80-94); Monocyte# 0.41 X10^3/uL; Monocyte% 5.6 % (0-10); NRBC Flagged by Analyzer 0 % (0-5); Neutrophil # 4.74 X10^3/uL (2.7-7.7); Neutrophil % 65.2 % (47-70); Platelet Count 254 K/mm3 (150-450); RBC Distribution Width CV 13.1 % (11.6-14.6); RBC Distribution Width SD 40.7 fl (35.1-43.9); Red Blood Count 4.83 M/mm3 (4.6-6.2); White Blood Count 7.3 K/mm3 (4.4-11.0)
[2023-04-19 12:08] LABS: ALB/GLOB Ratio 0.9 RATIO (0.9-2.4); AST(SGOT) 16 U/L (15-37); Alanine Aminotransfer ALT/SGPT 17 U/L (16-61); Albumin, Serum 3.6 g/dL (3.2-5.0); Alkaline Phosphatase 69 U/L (45-117); Anion Gap 8 (5-15); BUN 18 mg/dL (7-18); Calcium,Total 9.3 mg/dL (8.5-10.1); Chloride 109 mmol/L (98-107); Creatinine, Serum 0.95 mg/dL (0.70-1.30); EST Glomerular Filtration Rate 91 mL/min (>60); Est Glom Filt Rate - Afr Amer 110 mL/min (>60); Estimated Creatinine Clearance 90.84 ml/min; Globulin 4.1 g/dL (2.2-4.2); Glucose 128 mg/dL (74-106); Lipase 27 U/L (13-75); Potassium 4.2 mmol/L (3.5-5.1); Protein, Total 7.7 g/dL (6.4-8.2); Sodium Level 142 mmol/L (136-145)
[2023-04-19 12:19] VITALS: BP 141/75; PULSE 68; O2SAT 92
[2023-04-19 12:52] VITALS: BP 131/98; PULSE 71; RESP 18; O2SAT 96
== END 2023-04-19 12:53 | disposition home or self-care (01) ==
PROVIDERS: Physician Assistant; Emergency Provider Emergency Medicine; PCP Family Medicine; Visit Provider Emergency Medicine
DX: R10.13 Epigastric pain (principal); K92.0 Hematemesis; I10 Essential (primary) hypertension; F17.210 Nicotine dependence, cigarettes, uncomplicated; J45.909 Unspecified asthma, uncomplicated; Z79.82 Long term (current) use of aspirin
CPT/HCPCS: 80053; 83690; 85025; 96374; 99284; A4216; J2405

== ENCOUNTER 2023-10-03 22:32 | Emergency (ER) | payer MEDICARE, MEDICAID, SELFPAY ==
[2023-10-03 22:33] VITALS: BP 141/87; PULSE 109; RESP 18; TEMP 36.8; O2SAT 98; BMI 38.8
--- NOTE | 2023-10-03 23:14 | ED.VIS.GI ---
HPI HPI - GI History of Present Illness Chief Complaint: GI Bleed Informant: patient Narrative Narrative: Patient states that he vomited once with blood earlier this evening. He feels fine now. Patient states he was bowling. He was not drinking. He does not drink anymore. He had stepped outside for a minute. He suddenly felt nauseated. He vomited. He states he vomited blood 1 time. It was red. There is no black material. He does not have abdominal pain. He has no nausea now. He has not been having black or bloody stools. No change in his diet. It sounds like he is on Protonix and is taking it. He has had an EGD. He is not exactly sure when that was. He is not on any blood thinners including no aspirin. [facility] Medical History Asthma HTN (hypertension) Seizure Home Medications lisinopril 10 mg tablet 10 mg PO DAILY #30 tabs 04/30/16 [Rx Last Taken Unknown] losartan 50 mg tablet 50 mg PO DAILY #30 tabs 12/14/21 [Rx Last Taken Unknown] albuterol sulfate 90 mcg/actuation aerosol inhaler 2 puff inhalation Q4H PRN shortness of breath or wheezing #6.7 grams 11/15/22 [Rx Last Taken Unknown] benzonatate 100 mg capsule 200 mg (2 x 100 mg) PO TID PRN PRN Cough #20 CAPSULES 11/15/22 [Rx Last Taken Unknown] ondansetron 4 mg disintegrating tablet 4 mg PO Q8H PRN nausea and vomiting 3 days #9 tabs 02/21/23 [Rx Last Taken Unknown] pantoprazole 40 mg tablet,delayed release (Protonix) 40 mg PO DAILY #30 tabs 04/19/23 [Rx Last Taken Unknown] sucralfate 1 gram tablet (Carafate) 1 g PO BID #14 tabs 10/04/23 [Rx Last Taken Unknown] Allergy/AdvReac Type Severity Reaction Status Date / Time Penicillins [PCN] Allergy Hives Verified 10/03/23 22:33 Social History Smoking Status: Current every day smoker tobacco type: cigarettes ROS ROS ED ROS Narrative A complete review of systems was performed and is negative except as documented in the history of present illness. Some specific details below. Constitutional: No recent fevers or chills. EYE: No visual complaints or pain. ENT: No difficulty swallowing. No swelling. No pain. CV: No chest pain or palpitations. Respiratory: No dyspnea. No hemoptysis. No difficulty taking breaths. GI: Please see history of present illness. : No frequency dysuria or hematuria. Musculoskeletal: No recent trauma. No pains. Skin: No rash. Nondiaphoretic. Neuro: No weakness or numbness. Endocrine: No polyuria or polydipsia. EXAM Physical Exam Narrative Exam Narrative: CONSTITUTIONAL: Patient is nontoxic in appearance. The patient looks comfortable. Does not look pale or diaphoretic HEENT: No notable trauma. Mucous membranes moist. No sinus tenderness. No indication of pain with swallowing. No nasal bleeding. EYES: No conjunctival injection. No proptosis. No pallor. No icterus. CARDIOVASCULAR: Regular rate. Regular rhythm. No notable murmur. No JVD. RESPIRATORY: No respiratory distress. Breathing is unlabored. No wheezes. No rhonchi. No rales. No pain with a deep breath. GASTROINTESTINAL: Not distended. Bowel sounds are normal. No tenderness. No guarding. No rebound. No palpable mass. No bruit. Overall his abdomen is completely benign. GENITOURINARY: No tenderness over the bladder. No CVA tenderness. MUSCULOSKELETAL: Atraumatic. No peripheral edema. No cord. No tenderness along the deep venous system. No asymmetry. NEUROLOGICAL: Patient is alert and appropriate. No focal deficit noted. SKIN: No noted rashes. No diaphoresis. PSYCHIATRIC: Patient is calm. Mood is appropriate. Const Vital Signs: 10/03/23 22:33 Temperature 98.2 F Temperature Source Temporal Pulse Rate 109 H Respiratory Rate 18 Blood Pressure 141/87 H Blood Pressure Mean 105 Pulse Ox 98 Oxygen Delivery Method Room Air MDM MDM MDM Narrative Medical decision making narrative: Patient CBC is normal other than a minimal nonspecific elevation of the white count at 11.6. Patient's electrolytes are overall normal. Minimal elevation in the BUN. Patient's liver function test are normal. I went back checked the patient. He is still asymptomatic. He has no nausea or pain. The event has not recurred. His exam is still benign. I explained he should stay on his Protonix. I will write for some Carafate. If he has recurrent bleeding or develops pain fevers or other symptoms he should return. Otherwise he can follow-up with his physician. Lab Data Attestation: I reviewed the patient's lab results. Labs: Laboratory Results - last 24 hr 10/03/23 10/04/23 22:58 00:20 WBC 11.6 H RBC 5.29 Hgb 15.0 Hct 44.5 MCV 84.1 MCH 28.4 MCHC 33.7 RDW Std Deviation 38.6 RDW Coeff of Desmond 12.7 Plt Count 278 MPV 10.3 Immature Gran % (Auto) 0.300 Neut % (Auto) 64.7 Lymph % (Auto) 28.1 [place] % (Auto) 5.4 Eos % (Auto) 0.9 Baso % (Auto) 0.6 Absolute Neuts (auto) 7.5 Absolute Lymphs (auto) 3.27 Nucleated RBC % 0 Sodium Cancelled 137 Potassium Cancelled 4.3 Chloride Cancelled 105 Carbon Dioxide Cancelled 28.0 Anion Gap Cancelled 4 L BUN Cancelled 20 H Creatinine Cancelled 1.01 Estim Creat Clear Calc Cancelled 84.53 Est GFR (MDRD) Af Amer Cancelled 102 Est GFR (MDRD) Non-Af Cancelled 84 BUN/Creatinine Ratio Cancelled 19.8 Glucose Cancelled 105 Calcium Cancelled 9.3 Total Bilirubin Cancelled 0.30 AST Cancelled 14 L ALT Cancelled 19 Alkaline Phosphatase Cancelled 61 Total Protein Cancelled 7.9 Albumin Cancelled 3.9 Globulin Cancelled 4.0 Albumin/Globulin Ratio Cancelled 1.0 Discharge Plan Triage Chief Complaint: GI Bleed ED Provider: Erwin Huitron Dx/Rx/DC Orders Clinical Impression: Family history of GERD, Hematemesis Instructions: ED Upper GI Bleeding (Stable) Prescriptions: New sucralfate [Carafate] 1 gram tablet 1 g PO BID Qty: 14 0RF No Action lisinopril 10 MG tablet 10 mg PO DAILY Qty: 30 0RF losartan 50 mg tablet 50 mg PO DAILY Qty: 30 0RF albuterol sulfate 90 mcg/actuation HFA aerosol inhaler 2 puff inhalation Q4H PRN (Reason: shortness of breath or wheezing) Qty: 6.7 0RF benzonatate [benzonatate] 100 mg capsule 200 mg PO TID PRN PRN (Reason: Cough) Qty: 20 0RF ondansetron 4 mg tablet,disintegrating 4 mg PO Q8H PRN (Reason: nausea and vomiting) 3 Days Qty: 9 0RF pantoprazole [Protonix] 40 mg tablet,delayed release (DR/EC) 40 mg PO DAILY Qty: 30 0RF Primary Care Provider: Ame Fenton Referrals: Ame Fenton, [Primary Care Provider] - 3-5 Days Disposition Disposition: Home, Self Care
[2023-10-03] MEDS: Pantoprazole Sodium 80 MG in 0.9% Normal Saline (50mL Bag) 15 ML 420 MG IV BOLUS (23:24)
[2023-10-03 23:42] LABS: Absolute Lymphocyte Count 3.27 X10^3/uL (0.83-4.51); Absolute Neutrophil Count 7.5 X10^3/uL (2.0-7.7); Basophil# 0.07 X10^3/uL; Basophil% 0.6 % (0-1); Eosinophil# 0.11 X10^3/uL; Eosinophils% 0.9 % (0-5); Hematocrit 44.5 % (40-54); Lymphocyte # 3.27 X10^3/ul (0.83-4.51); Lymphocyte % 28.1 % (19-41); Mean Corp Hgb Conc 33.7 g/dL (32-36); Mean Corpuscular Hgb 28.4 pg (27.0-32.0); Mean Corpuscular Volume 84.1 fL (80-94); Mean Platelet Vol. 10.3 fl (6.2-12.0); Monocyte# 0.63 X10^3/uL; Monocyte% 5.4 % (0-10); NRBC Flagged by Analyzer 0 % (0-5); Neutrophil # 7.52 X10^3/uL (2.7-7.7); Neutrophil % 64.7 % (47-70); Platelet Count 278 K/mm3 (150-450); RBC Distribution Width CV 12.7 % (11.6-14.6); RBC Distribution Width SD 38.6 fl (35.1-43.9); Red Blood Count 5.29 M/mm3 (4.6-6.2); White Blood Count 11.6 K/mm3 (4.4-11.0)
[2023-10-04 00:52] LABS: AST(SGOT) 14 U/L (15-37); Alanine Aminotransfer ALT/SGPT 19 U/L (16-61); Albumin, Serum 3.9 g/dL (3.2-5.0); Alkaline Phosphatase 61 U/L (45-117); Anion Gap 4 (5-15); BUN 20 mg/dL (7-18); BUN/Creat Ratio 19.8 RATIO (10-20); Calcium,Total 9.3 mg/dL (8.5-10.1); Chloride 105 mmol/L (98-107); Creatinine, Serum 1.01 mg/dL (0.70-1.30); EST Glomerular Filtration Rate 84 mL/min (>60); Est Glom Filt Rate - Afr Amer 102 mL/min (>60); Estimated Creatinine Clearance 84.53 ml/min; Glucose 105 mg/dL (74-106); Potassium 4.3 mmol/L (3.5-5.1); Protein, Total 7.9 g/dL (6.4-8.2); Sodium Level 137 mmol/L (136-145)
[2023-10-04 01:22] VITALS: BP 136/75; PULSE 89; RESP 18
== END 2023-10-04 01:22 | disposition home or self-care (01) ==
PROVIDERS: Emergency Provider Emergency Medicine; PCP Family Medicine; Visit Provider Emergency Medicine
DX: K92.0 Hematemesis (principal); I10 Essential (primary) hypertension; F17.210 Nicotine dependence, cigarettes, uncomplicated; J45.909 Unspecified asthma, uncomplicated; Z79.899 Other long term (current) drug therapy
CPT/HCPCS: 80053; 85025; 96365; 99282; A4216; J3490

== ENCOUNTER 2023-11-19 18:50 | Emergency (ER) | payer MEDICARE, MEDICAID, SELFPAY ==
[2023-11-19 18:51] VITALS: BP 160/115; PULSE 104; RESP 18; TEMP 36.1; O2SAT 97; BMI 40.2
--- NOTE | 2023-11-19 19:28 | RAD_ITS ---
STUDY: X-RAY - LEFT HAND, ATTENTION FOR FINGER REASON FOR EXAM: Male, 48 years old. Crush injury distal tip TECHNIQUE: 3 view(s) of the finger were obtained. COMPARISON: None. FINDINGS: Normal metacarpal head. Normal metacarpophalangeal joint. Normal proximal phalanx. Normal middle phalanx. Normal distal phalanx. Normal proximal interphalangeal joint. Normal distal interphalangeal joint. RAD/Finger(s) Min 2 Views IMPRESSION: Normal x-ray examination of the finger. Electronically Signed: Apolinar Thompson MD at 20:19 EST ,
[2023-11-19] MEDS: Diphth,Pertuss(Acell),Tet Vac 0.5 ML Vial IM (19:42)
--- NOTE | 2023-11-19 19:43 | EDS_ITS ---
HPI History of Present Illness Chief Complaint: Laceration Informant: patient and family Narrative Narrative: Patient accidentally got his left dominant hand ring finger tip stuck between a pipe and a toolbox that he was pushing. Last tetanus unknown. Had small amount of bleeding which is stopped. No other injury. No loss of function but it does hurt to move it or press or touch it. This happened shortly before arrival. [facility] Medical History Asthma HTN (hypertension) Seizure Home Medications lisinopril 10 mg tablet 10 mg PO DAILY #30 tabs 04/30/16 [Rx Last Taken Unknown] losartan 50 mg tablet 50 mg PO DAILY #30 tabs 12/14/21 [Rx Last Taken Unknown] albuterol sulfate 90 mcg/actuation aerosol inhaler 2 puff inhalation Q4H PRN shortness of breath or wheezing #6.7 grams 11/15/22 [Rx Last Taken Unknown] benzonatate 100 mg capsule 200 mg (2 x 100 mg) PO TID PRN PRN Cough #20 CAPSULES 11/15/22 [Rx Last Taken Unknown] ondansetron 4 mg disintegrating tablet 4 mg PO Q8H PRN nausea and vomiting 3 days #9 tabs 02/21/23 [Rx Last Taken Unknown] pantoprazole 40 mg tablet,delayed release (Protonix) 40 mg PO DAILY #30 tabs 04/19/23 [Rx Last Taken Unknown] sucralfate 1 gram tablet (Carafate) 1 g PO BID #14 tabs 10/04/23 [Rx Last Taken Unknown] Allergy/AdvReac Type Severity Reaction Status Date / Time Penicillins [PCN] Allergy Hives Verified 11/19/23 18:51 Social History Smoking Status: Current every day smoker tobacco type: cigarettes ROS ROS ED Constitutional Constitutional ED: Denies chills or fever(s) Respiratory/Chest Respiratory/Chest: Denies cough Gastrointestinal Gastrointestinal: Denies nausea or vomiting Musculoskeletal Musculoskeletal: Reports other Details: See history of present illness Integumentary Reports other Details: There is a break in the skin near the nail of the left ring finger. Neurologic Neurologic: Denies paresthesias or weakness Hematologic/Lymphatic Hematologic/Lymphatic: Denies easy bleeding or easy bruising Allergic/Immunologic Allergic/Immunologic ED: Denies urticaria EXAM Physical Exam Narrative Exam Narrative: General: Patient awake alert sitting comfortably on bed. HEENT shows no sign of trauma Cardiorespiratory shows easy unlabored breathing. Extremities do show some clotted blood around the tip of the left ring finger. It is mostly on the dorsal medial side. It looks like there may be laceration right at the edge of the nail. It does not look like there is anything that can be sutured but we are going to clean this to get a slightly better view. Patient stating that he really does not think he can be sutured and does not want it sutured. His range of motion including both deep and profundus as well as the extensor tendons are intact. Sensations seems intact all the way out to the tip. Const Vital Signs: 11/19/23 18:51 Temperature 96.9 F L Temperature Source Temporal Pulse Rate 104 H Respiratory Rate 18 Blood Pressure 160/115 H Blood Pressure Mean 130 Pulse Ox 97 Oxygen Delivery Method Room Air MDM MDM MDM Narrative Medical decision making narrative: FingerMy independent interpretation of the patient's three-view x-ray of the left index finger shows slight cortical angulation but no gross fracture. No significant comminution even if there is a small fracture. Final reading shows no acute process. Was soaked scrubbed and cleaned. There is nothing that opens up or needs to be sutured. He does not want anything sutured. This should heal well. I do not think he needs antibiotics. We discussed reasons to return and signs of infection. Discharge Plan Triage Chief Complaint: Laceration ED Provider: Erwin Huitron Dx/Rx/DC Orders Clinical Impression: Crush injury to finger Instructions: ED Crush Injury, Hand Prescriptions: No Action lisinopril 10 MG tablet 10 mg PO DAILY Qty: 30 0RF losartan 50 mg tablet 50 mg PO DAILY Qty: 30 0RF albuterol sulfate 90 mcg/actuation HFA aerosol inhaler 2 puff inhalation Q4H PRN (Reason: shortness of breath or wheezing) Qty: 6.7 0RF benzonatate [benzonatate] 100 mg capsule 200 mg PO TID PRN PRN (Reason: Cough) Qty: 20 0RF ondansetron 4 mg tablet,disintegrating 4 mg PO Q8H PRN (Reason: nausea and vomiting) 3 Days Qty: 9 0RF pantoprazole [Protonix] 40 mg tablet,delayed release (DR/EC) 40 mg PO DAILY Qty: 30 0RF sucralfate [Carafate] 1 gram tablet 1 g PO BID Qty: 14 0RF Primary Care Provider: Ame Fenton Referrals: Ame Fenton, DO [Primary Care Provider] - 1 Week if not improving Disposition Disposition: Home, Self Care Capacity Legal Color Making Supervisor Reflex Medical hold order details:: IF a medical hold is selected below, a suggested order for a MEDICAL HOLD will reflex upon signing the document. Next of kin: [place] law dictates a PRIORITY LIST for identifying legal decision-maker/legal next of kin in the following order (LNOK): 1st: The patient?s legal guardian, if any 2nd: The patient's spouse (if status is questionable, consult Risk Management) 3rd: The patient?s adult child(marianela) (majority, if multiple children) 4th: The patient?s parents 5th: The patient?s adult siblings (majority, if multiple children siblings)
--- OUTSIDE RECORDS SUMMARY | 2023-11-19 20:30 | XMS RPT_ITS | CCD ---
Author Name Unknown Address [address] [place] [address] Organization [facility] Results Test Name Value Interpretation Reference Range Facil ity Progress note 12-13-2021 Note Date & Type Note Facility 12-13-2021 Note HNO ID: [id number] Author: Laurence Wilkes PA-C Service: ? Author Type: Physician [employer] Director Type: Progress Notes Filed: 12/13/2021 6:36 PM Note Text: This note was created using [employer]. Subjective Jamar Dutton is a 46 year old male. HPI Patient presents with the chief complaint of chest pain for 2 weeks.He is a poor historian and father brought in room after initial interview with patient permission. Father's history of his son's complaint difficult to ascertain as well. Patient was diagnosed with covid19 here on 11/18. He states it hurts when he smokes a cigarette and sometimes with a breath, but cannot articulate what makes his pain worse. He has has some gi discomfort after bowel movements as well. No blood in stool. He denies personal CV history. His mother had cva in past. Patient does not currently follow with a pcp. The pain in his chest is sharp and will last 15-20 minutes. He denies history of dvt or pe. No recent surgeries or travel. No CA history. No leg pain or swelling. Review of Systems Constitutional: Negative. HENT: Negative. Respiratory: Positive for cough and shortness of breath. Cardiovascular: Positive for chest pain. Negative for palpitations and leg swelling. Gastrointestinal: Negative. Genitourinary: Negative. Musculoskeletal: Negative. Neurological: Negative. All other systems reviewed and are negative. History reviewed. No pertinent past medical history. Current Outpatient Medications Medication Sig Dispense Refill - predniSONE (DELTASONE) 10 mg tablet Take 4 tabs daily for 3 days, then 2 tabs daily for 3 days, then 1 tab daily for 3 days with food. (Patient not taking: Reported on 12/13/2021 ) 21 tablet 0 No current facility-administered medications for this visit. PAST SURGICAL HISTORY Procedure Laterality Date - PAST SURGICAL HISTORY OF 2003 right ankle, ORIF, plate/6 screws, one removed since FAMILY HISTORY Problem Relation Age of Onset - Coronary Artery Disease Maternal Grandmother - Coronary Artery Disease Maternal Grandfather age 67 - Coronary Artery Disease Paternal Grandfather age 43 - Diabetes Mother - Diabetes Father (borderline) - Diabetes Maternal Grandmother - Colon Cancer Other none - Prostate Cancer Other none - Cancer Paternal Grandmother probable lung, metastatic Social History Tobacco Use - Smoking status: Current Every Day Smoker Packs/day: 1.00 Types: Cigarettes - Smokeless tobacco: Never Used Substance Use Topics - Alcohol use: Yes Comment: occasionally - Drug use: No Objective BP 146/86 Pulse 84 Temp 36.7 ?C (98 ?F) (Tympanic) Resp 16 Wt 110.8 kg (244 lb 3.2 oz) SpO2 97% Physical Exam Vitals reviewed. Constitutional: Appearance: Normal appearance. HENT: Head: Normocephalic and atraumatic. Cardiovascular: Rate and Rhythm: Normal rate and regular rhythm. Heart sounds: Normal heart sounds. Pulmonary: Effort: Pulmonary effort is normal. Breath sounds: Normal breath sounds. Abdominal: General: Abdomen is flat. Bowel sounds are normal. There is no distension. Palpations: Abdomen is soft. Tenderness: There is no abdominal tenderness. There is no guarding or rebound. Skin: General: Skin is warm and dry. Neurological: General: No focal deficit present. Mental Status: He is alert. ASSESSMENT/PLAN: 1. Chest pain, unspecified type - ICD9: 786.50, ICD10: R07.9 Discussed with father and patient I am not able to fully evaluate this here at [facility] care. Recommended he be seen in the ED. Dad will take him to [facility] ed. Laurence Wilkes PA-C [facility] Progress note 11-18-2021 Note Date & Type Note Facility 11-18-2021 Note HNO ID: [id number] Author: Clarisa Adam APRN.STONEWORKER Service: ? Author Type: Nurse Practitioner Type: Progress Notes Filed: 11/18/2021 2:00 PM Note Text: This note was created using NoteWriter. Subjective Jamar Dutton is a 46 year old male. 46 year old male with no PMH presents requesting COVID testing. Acute onset last month +cough +chest congestion. +congestion. Denies SOB or dyspnea. Denies CP. Denies abdominal pain. Denies N/V/D. Denies skin rash or lesions. Denies hemoptysis. States that he has had 2 other COVID tests and that they were all negative. He states here for another one as my family has asked. +tobacco usage 2 PPD. Denies ill contacts. Denies prior history of COVID or COVID vaccine. The history is provided by the patient. No specialized language instructor was used. URI He complains of cough. There is no chest tightness, difficulty breathing, frequent throat clearing, hemoptysis, hoarse voice, shortness of breath, sputum production or wheezing. This is a recurrent problem. The current episode started more than 1 month ago. The problem occurs constantly. The problem has been unchanged. The cough is non-productive. Associated symptoms include nasal congestion and rhinorrhea. Pertinent negatives include no appetite change, chest pain, dyspnea on exertion, ear congestion, ear pain, fever, headaches, heartburn, malaise/fatigue, myalgias, orthopnea, PND, postnasal drip, sneezing, sore throat, sweats, trouble swallowing or weight loss. His symptoms are aggravated by nothing. His symptoms are alleviated by nothing. He reports no improvement on treatment. His symptoms are not alleviated by anxiolytic. Risk factors for lung disease include smoking/tobacco exposure. There is no history of asthma, bronchiectasis, bronchitis, COPD, emphysema or pneumonia. No past medical history on file. PAST SURGICAL HISTORY Procedure Laterality Date - PAST SURGICAL HISTORY OF 2003 right ankle, ORIF, plate/6 screws, one removed since ALLERGIES Penicillins MEDICATIONS doxycycline (VIBRA-TABS) 100 mg tablet Take 1 tablet by mouth twice daily for 10 days. predniSONE (DELTASONE) 10 mg tablet Take 4 tabs daily for 3 days, then 2 tabs daily for 3 days, then 1 tab daily for 3 days with food. FAMILY HISTORY Problem Relation Age of Onset - Coronary Artery Disease Maternal Grandmother - Coronary Artery Disease Maternal Grandfather age 67 - Coronary Artery Disease Paternal Grandfather age 43 - Diabetes Mother - Diabetes Father (borderline) - Diabetes Maternal Grandmother - Colon Cancer Other none - Prostate Cancer Other none - Cancer Paternal Grandmother probable lung, metastatic Social History Tobacco Use - Smoking status: Current Every Day Smoker Packs/day: 1.00 Types: Cigarettes - Smokeless tobacco: Not on file Substance Use Topics - Alcohol use: Yes Comment: occasionally - Drug use: No Review of Systems Constitutional: Negative for appetite change, fever, malaise/fatigue and weight loss. HENT: Positive for congestion and rhinorrhea. Negative for dental problem, drooling, ear pain, hoarse voice, postnasal drip, sneezing, sore throat and trouble swallowing. Eyes: Negative for pain and discharge. Respiratory: Positive for cough. Negative for apnea, hemoptysis, sputum production, choking, chest tightness, shortness of breath and wheezing. Cardiovascular: Negative for chest pain, dyspnea on exertion and PND. Gastrointestinal: Negative for abdominal pain, diarrhea, heartburn, nausea and vomiting. Musculoskeletal: Negative for arthralgias, back pain and myalgias. Skin: Negative for color change, pallor, rash and wound. Allergic/Immunologic: Negative for environmental allergies, food allergies and immunocompromised state. Neurological: Negative for headaches. Hematological: Negative for adenopathy. Does not bruise/bleed easily. Psychiatric/Behavioral: Negative for agitation and behavioral problems. Objective BP 178/102 Pulse 79 Temp 36.2 ?C (97.2 ?F) Wt 108.9 kg (240 lb) SpO2 98% Physical Exam Vitals and nursing note reviewed. Constitutional: General: He is not in acute distress. Appearance: Normal appearance. He is not ill-appearing, toxic-appearing or diaphoretic. HENT: Head: Normocephalic and atraumatic. Right Ear: External ear normal. Left Ear: External ear normal. Nose: Nose normal. No congestion or rhinorrhea. Mouth/Throat: Mouth: Mucous membranes are moist. Pharynx: Oropharynx is clear. No oropharyngeal exudate or posterior oropharyngeal erythema. Eyes: General: Right eye: No discharge. Left eye: No discharge. Extraocular Movements: Extraocular movements intact. Conjunctiva/sclera: Conjunctivae normal. Pupils: Pupils are equal, round, and reactive to light. Cardiovascular: Rate and Rhythm: Normal rate and regular rhythm. Pulses: Normal pulses. Heart sounds: Normal heart sounds. No murmu (more content not included)... [facility] Summary Purpose Family History No Family History Records Found Advance Directives No Advanced Directives Records Found Additional Source Comments (unrecognized sect ion and content) No Status Records Found INFORMATION SOURCE (unrecogn ized section and content) FOR RECORDS PERTAINING TO PATIENTS WHO ARE OR HAVE BEEN ENROLLED IN A CHEMICAL DEPENDENCY/SUBSTANCEABUSE PROGRAM, SOME INFORMATION MAY BE OMITTED. This clinical summary was aggregated from multiple sources. Caution should be exercised in using it in the provision of clinical care. This summary normalizes information from multiple sources, and as a consequence, information in this document may materially change the coding, format and clinical context of patient data. In addition, data may be omitted in some cases. CLINICAL DECISIONS SHOULD BE BASED ON THE PRIMARY CLINICAL RECORDS. [facility]. provides no warranty or guarantee of the accuracy or completeness of information in this document.
== END 2023-11-19 20:57 | disposition home or self-care (01) ==
PROVIDERS: Emergency Provider Emergency Medicine; PCP Family Medicine; Visit Provider Emergency Medicine
DX: S67.195A Crushing injury of left ring finger, initial encounter (principal); F17.210 Nicotine dependence, cigarettes, uncomplicated; J45.909 Unspecified asthma, uncomplicated; I10 Essential (primary) hypertension; W23.1XXA Caught, crushed, jammed, or pinched between stationary objects, initial encounter; Z23 Encounter for immunization
CPT/HCPCS: 73140; 90471; 90715; 99282

== ENCOUNTER → 2023-12-04 | Outpatient (CLI) | payer MEDICARE, MEDICAID, SELFPAY ==
--- NOTE | 2023-12-04 16:18 | RAD_ITS ---
STUDY: X-RAY - RIGHT FOOT CLINICAL: Male, 48 years old. PAIN IN BOTH FEET TECHNIQUE: 3 view(s) of the foot. COMPARISON: None. FINDINGS: Normal talus, calcaneus, and tarsal bones. Normal visualized subtalar, talonavicular, calcaneocuboid, tarsal and tarsometatarsal articulations. Normal metatarsi. Normal metatarsophalangeal joint of the great toe. Normal tibial and fibular sesamoid bones. Normal interphalangeal joint of the great toe. Normal phalanges of the great toe. Normal second through fifth metatarsophalangeal joints. Mild decrease interphalangeal joint space is present throughout. The soft tissue structures are unremarkable. RAD/Foot min 3 Views IMPRESSION: Mild interphalangeal joint space loss with otherwise no evidence of acute osseous abnormality. Electronically Signed: Sloan Calderon DO at 17:11 EST ,
--- NOTE | 2023-12-04 16:18 | RAD_ITS ---
STUDY: X-RAY - LEFT FOOT CLINICAL: Male, 48 years old. Pain in left foot TECHNIQUE: 3 view(s) of the foot. COMPARISON: None. FINDINGS: Normal talus, calcaneus, and tarsal bones. Small posterior calcaneal enthesophyte. Type III accessory navicular bone. Normal visualized subtalar, talonavicular, calcaneocuboid, tarsal and tarsometatarsal articulations. Normal metatarsi. Normal metatarsophalangeal joint of the great toe. Normal tibial and fibular sesamoid bones. Normal interphalangeal joint of the great toe. Normal phalanges of the great toe. Normal second through fifth metatarsophalangeal joints. Normal interphalangeal joints and phalanges of the lesser toes. The soft tissue structures are unremarkable. RAD/Foot min 3 Views IMPRESSION: Normal x-ray examination of the foot. Electronically Signed: Apolinar Thompson MD at 17:24 EST ,
== END | disposition home or self-care (01) ==
PROVIDERS: PCP Family Medicine; Referring Provider Family Medicine; Visit Provider Family Medicine
DX: M79.671 Pain in right foot (principal); M79.672 Pain in left foot
CPT/HCPCS: 73630

== ENCOUNTER 2024-01-05 23:18 | Emergency (ER) | payer MEDICARE, MEDICAID, SELFPAY ==
[2024-01-05 23:19] VITALS: BP 174/105; PULSE 88; RESP 16; TEMP 36.1; O2SAT 97; BMI 39.4
--- NOTE | 2024-01-05 23:24 | EDS_ITS ---
HPI History of Present Illness Chief Complaint: Shortness of Breath Informant: patient Onset/Context/Timing Onset: Today Context: sudden Timing: Continuous Worsened by: Nothing Relieved by: Nothing Associated Symptoms rhinorrhea; Negative for cough, post nasal drip, ear pain, fever, sore throat, chills, sweats, clear sputum, white sputum, yellow sputum or green sputum Chest Pain: Positive for None Narrative Narrative: Patient presents with shortness of breath that began today. Patient states it began rather suddenly tonight. Patient states he sprayed his couch for bedbugs earlier today. Patient states that he went outside after this and that is when he started feeling short of breath. Patient states he also feels lightheaded and dizzy. Patient states nothing makes his symptoms worse and nothing makes it better. Patient states he tried his albuterol at home with no improvement. Patient admits to some rhinorrhea but denies any cough or sore throat. Patient denies any fevers or chills. Patient denies any chest pain. [facility] Medical History (Updated 01/06/24 @ 01:[address] Sergio Ellis, ) Asthma HTN (hypertension) Seizure Home Medications lisinopril 10 mg tablet 10 mg PO DAILY #30 tabs 04/30/16 [Rx Last Taken Unknown] losartan 50 mg tablet 50 mg PO DAILY #30 tabs 12/14/21 [Rx Last Taken Unknown] albuterol sulfate 90 mcg/actuation aerosol inhaler 2 puff inhalation Q4H PRN shortness of breath or wheezing #6.7 grams 11/15/22 [Rx Last Taken Unknown] benzonatate 100 mg capsule 200 mg (2 x 100 mg) PO TID PRN PRN Cough #20 CAPSULES 11/15/22 [Rx Last Taken Unknown] ondansetron 4 mg disintegrating tablet 4 mg PO Q8H PRN nausea and vomiting 3 days #9 tabs 02/21/23 [Rx Last Taken Unknown] pantoprazole 40 mg tablet,delayed release (Protonix) 40 mg PO DAILY #30 tabs 04/19/23 [Rx Last Taken Unknown] sucralfate 1 gram tablet (Carafate) 1 g PO BID #14 tabs 10/04/23 [Rx Last Taken Unknown] Allergy/AdvReac Type Severity Reaction Status Date / Time Penicillins [PCN] Allergy Hives Verified 01/05/24 23:19 Surgical History (Updated 01/05/24 @ 23:[address] Sergio Ellis DO) History of ankle surgery Social History Smoking Status: Current every day smoker tobacco type: cigarettes ROS ROS ED Constitutional Constitutional ED: Denies chills or fever(s) Eyes Eyes: Denies blurry vision or change in vision ENT ENT ED: Reports rhinorrhea; Denies sore throat Cardiovascular Cardiovascular: Denies chest pain or palpitations Respiratory/Chest Respiratory/Chest: Reports dyspnea; Denies cough Gastrointestinal Gastrointestinal: Denies nausea or vomiting Genitourinary Genitourinary ED: Denies dysuria or hematuria Musculoskeletal Musculoskeletal: Denies back pain or neck pain Integumentary Denies abscess or rash Neurologic Neurologic: Denies headache(s) or weakness Allergic/Immunologic Allergic/Immunologic ED: Denies mouth swelling or urticaria EXAM Physical Exam Const Vital Signs: 01/05/24 23:19 01/05/24 23:42 Temperature 97 F L Temperature Source Temporal Pulse Rate 88 88 Respiratory Rate 16 20 H Respiratory Pattern Normal Blood Pressure 174/105 H Blood Pressure Mean 128 Pulse Ox 97 Positive well nourished, well developed and obese General Appearance ED: well developed and NAD Nutritional Appearance: obese HEENT Reports moist mucous membranes Neck supple and no JVD Resp normal respiratory effort and clear to auscultation bilaterally Cardio regular rate and regular rhythm GI non-tender and non-distended Palpation: soft Neuro oriented x3, CN's II-XII intact bilaterally and no sensory deficits noted Cristino Coma Scale: document GCS findings Spontaneous Obeys Commands Oriented 15 Sensorium / Orientation: alert Motor Exam: strength 5/5 throughout Psych mental status grossly normal MDM MDM MDM Narrative Medical decision making narrative: Differential diagnosis includes viral illness, bronchitis, reactive airway disease, and pneumonia. Chest x-ray will be obtained to assess for pneumonia. COVID-19, influenza, and RSV PCR will be obtained to assess for viral infection. Lab Data Lab results narrative: COVID-19 PCR was reviewed and was negative. Influenza PCR was reviewed and was negative for influenza A and influenza B. RSV PCR was reviewed and was negative. Radiography Diagnostic Testing: Clinical Impression(s) from Imaging Studies Chest X-Ray 01/06/24 00:03 IMPRESSION: No radiographic evidence of acute cardiopulmonary disease. Electronically Signed: Haile Han MD at 0:44 EST , Portable 1 view chest x-ray was obtained. On my independent interpretation, lung lee are clear. There is normal cardiac silhouette. Bony thorax is normal. There is no acute process noted. Radiologist also interpreted the x- ray and agrees. Treatment and Re-Evaluation :: Patient was given a DuoNeb aerosol here. Patient is feeling better on reevaluation. Patient was advised of his findings. Patient was instructed to follow-up with his primary care physician in 5 to 7 days for further evaluation. Patient understood and was agreeable with the plan. All questions were answered. Discharge Plan Triage Chief Complaint: Shortness of Breath ED Provider: Sergio Ellis Dx/Rx/DC Orders Clinical Impression: Reactive airway disease, Hypertension Instructions: ED COPD Flare Prescriptions: No Action lisinopril 10 MG tablet 10 mg PO DAILY Qty: 30 0RF losartan 50 mg tablet 50 mg PO DAILY Qty: 30 0RF albuterol sulfate 90 mcg/actuation HFA aerosol inhaler 2 puff inhalation Q4H PRN (Reason: shortness of breath or wheezing) Qty: 6.7 0RF benzonatate [benzonatate] 100 mg capsule 200 mg PO TID PRN PRN (Reason: Cough) Qty: 20 0RF ondansetron 4 mg tablet,disintegrating 4 mg PO Q8H PRN (Reason: nausea and vomiting) 3 Days Qty: 9 0RF pantoprazole [Protonix] 40 mg tablet,delayed release (DR/EC) 40 mg PO DAILY Qty: 30 0RF sucralfate [Carafate] 1 gram tablet 1 g PO BID Qty: 14 0RF Primary Care Provider: Ame Fenton Referrals: Ame Fenton, [Primary Care Provider] - 3-5 Days Disposition Disposition: Home, Self Care
[2024-01-05 23:42] VITALS: PULSE 88; RESP 20
[2024-01-05] MEDS: Ipratropium/Albuterol Sulfate 3 ML AMPUL.NEB INHALATION (23:42)
--- NOTE | 2024-01-06 00:03 | RAD_ITS ---
EXAM: XR CHEST, 2 VIEWS CLINICAL INDICATION: Dyspnea TECHNIQUE: Frontal and lateral views of the chest. COMPARISON: 2 view chest 11/15/2022 FINDINGS: LUNGS AND PLEURAL SPACES: Unremarkable. No consolidation or edema. No pneumothorax. No effusion. HEART: Unremarkable. Cardiac silhouette not enlarged. MEDIASTINUM: Central airways and mediastinal contour are unremarkable. BONES/JOINTS: Unremarkable. No acute fracture. SOFT TISSUES: Unremarkable. RAD/Chest PA and Lateral IMPRESSION: No radiographic evidence of acute cardiopulmonary disease. Electronically Signed: Haile Han MD at 0:44 EST ,
--- OUTSIDE RECORDS SUMMARY | 2024-01-06 00:45 | XMS RPT_ITS | CCD ---
Author Name Unknown Address [address] [place] [address] Organization [facility] Results Test Name Value Interpretation Reference Range Facil ity Progress note 12-13-2021 Note Date & Type Note Facility 12-13-2021 Note HNO ID: [id number] Author: Laurence Wilkes PA-C Service: ? Author Type: Physician Supervising Appraiser Type: Progress Notes Filed: 12/13/2021 6:36 PM Note Text: This note was created using [employer]. Subjective Jamar Dutton is a 46 year [...] able to fully evaluate this here at [facility] care. Recommended he be seen in the ED. Dad will take him to [facility] ed. Laurence Wilkes PA-C [facility] Progress note 11-18-2021 Note Date & Type Note Facility 11-18-2021 Note HNO ID: [id number] Author: Clarisa Adam APRN.ASSEMBLER BICYCLE Service: ? Author Type: Nurse Practitioner Type: [...] history is provided by the patient. No modern languages professor was used. URI He complains of cough. [...] sounds. No murmu (more content not included)... [facility] Summary Purpose Family History No Family History [...] BE BASED ON THE PRIMARY CLINICAL RECORDS. [facility]. provides no warranty or guarantee of the accuracy or completeness of information in this document.
[2024-01-06 01:32] VITALS: O2SAT 96
== END 2024-01-06 01:32 | disposition home or self-care (01) ==
PROVIDERS: Emergency Provider Emergency Medicine; PCP Family Medicine; Visit Provider Emergency Medicine
DX: J45.909 Unspecified asthma, uncomplicated (principal); F17.210 Nicotine dependence, cigarettes, uncomplicated; I10 Essential (primary) hypertension; E66.9 Obesity, unspecified
CPT/HCPCS: 71046; 87631; 94640; 99282

== ENCOUNTER → 2024-12-18 | Outpatient (CLI) | payer MEDICARE, MEDICAID, SELFPAY ==
[2024-12-18 17:50] LABS: Absolute Lymphocyte Count 2.78 X10^3/uL (0.83-4.51); Absolute Neutrophil Count 3.6 X10^3/uL (2.0-7.7); Basophil# 0.08 X10^3/uL; Basophil% 1.1 % (0-1); Eosinophil# 0.21 X10^3/uL; Eosinophils% 2.9 % (0-5); Hematocrit 46.4 % (40-54); Hemoglobin 14.9 g/dL (13.0-16.5); Lymphocyte # 2.78 X10^3/ul (0.83-4.51); Lymphocyte % 38.8 % (19-41); Mean Corp Hgb Conc 32.1 g/dL (32-36); Mean Corpuscular Hgb 28.3 pg (27.0-32.0); Mean Platelet Vol. 10.6 fl (6.2-12.0); Monocyte# 0.46 X10^3/uL; Monocyte% 6.4 % (0-10); NRBC Flagged by Analyzer 0 % (0-5); Neutrophil # 3.61 X10^3/uL (2.7-7.7); Neutrophil % 50.5 % (47-70); Platelet Count 231 K/mm3 (150-450); RBC Distribution Width CV 12.6 % (11.6-14.6); RBC Distribution Width SD 40.6 fl (35.1-43.9); Red Blood Count 5.27 M/mm3 (4.6-6.2); White Blood Count 7.2 K/mm3 (4.4-11.0)
[2024-12-18 18:34] LABS: ALB/GLOB Ratio 0.8 RATIO (0.9-2.4); AST(SGOT) 16 U/L (15-37); Alanine Aminotransfer ALT/SGPT 24 U/L (16-61); Albumin, Serum 3.7 g/dL (3.2-5.0); Alkaline Phosphatase 58 U/L (45-117); Anion Gap 7 (5-15); BUN 18 mg/dL (7-18); BUN/Creat Ratio 18.1 RATIO (10-20); Calcium,Total 9.3 mg/dL (8.5-10.1); Chloride 109 mmol/L (98-107); Cholesterol 200 mg/dL (200); EST Glomerular Filtration Rate 85 mL/min (>60); Est Glom Filt Rate - Afr Amer 103 mL/min (>60); Globulin 4.4 g/dL (2.2-4.2); Glucose 94 mg/dL (74-106); High Density Lipoprotein 45 mg/dL; Potassium 5.1 mmol/L (3.5-5.1); Protein, Total 8.1 g/dL (6.4-8.2); Sodium Level 140 mmol/L (136-145); Triglycerides 68 mg/dL; Very Low Density Lipoprotein 14 mg/dL (5-40)
== END | disposition home or self-care (01) ==
LOC: MFPLAB 14:51
PROVIDERS: PCP Family Medicine; Referring Provider Family Medicine; Visit Provider Family Medicine
DX: I10 Essential (primary) hypertension (principal); Z13.220 Encounter for screening for lipoid disorders
CPT/HCPCS: 36415; 80053; 80061; 84443; 85025

== ENCOUNTER 2025-06-30 12:47 | Day surgery (SDC) | payer MEDICARE, MEDICAID, SELFPAY ==
[2025-06-30] VITALS (9 sets, daily range): BP systolic 109–133; BP diastolic 74–97; PULSE 56–80; RESP 16–18; TEMP 36.1–36.6; O2SAT 97–100; BMI 34.2
[2025-06-30] MEDS: Lactated Ringers 1,000 ML 15 ML IV (13:16)
--- NOTE | 2025-06-30 13:30 | PRE.ANES_ITS ---
ASA Classification* ASA Classification ASA Classification: 2 Assessment & Plan Anesthesia* Anesthesia Assessment Anesthesia Assessment: Discussed sedation and/or anesthesia options, risks, benefits, and alternatives with patient/parents/legal guardian/POA. Questions invited. The patient/parents/legal guardian/POA seems to understand and agrees to proceed with anesthesia plan. Reviewed the physical assessment, medical history, allergy history and patient home medications list prior to surgery/procedure/anesthetic and documented any changes. Performed airway and anesthesia risk assessments. Anesthesia Type Anesthesia Type: MAC History Source History Obtained from:: Patient and Chart Anesthesia Focused Assessment* Temperature: 97.9 F Pulse Rate: 80 Blood Pressure: 133/97 Respiratory Rate: 16 Pulse Ox: 100 Oxygen Delivery Method: Room Air Airway Assessment Mouth opens: >3 cm Mallampati Score: III Teeth Condition: Chipped/Broken Neck Range of motion (ROM): Full ROM Labs Anesthesia Preop lab: CBC WBC 7.2 K/mm3 (4.4-11.0) 12/18/24 14:12/18/24 RBC 5.27 M/mm3 (4.6-6.2) 12/18/24 14:51 12/18/24 Hgb 14.9 g/dL (13.0-16.5) 12/18/24 14:12/18/24 Hct 46.4 % (40-54) 12/18/24 14:51 12/18/24 Plt Count 231 K/mm3 (150-450) 12/18/24 14:51 12/18/24 CHEMISTRY Potassium 5.1 mmol/L (3.5-5.1) 12/18/24 14:51 12/18/24 Sodium 140 mmol/L (136-145) 12/18/24 14:51 12/18/24 BUN 18 mg/dL (7-18) 12/18/24 14:12/18/24 Creatinine 1.00 mg/dL (0.70-1.30) 12/18/24 14:51 12/18/24 Glucose 94 mg/dL (74-106) 12/18/24 14:51 12/18/24 TSH 1.410 uIU/mL (0.358-3.740) 12/18/24 14:12/05 COAG Pre-Assessment Diagnosis/Proposed Procedure Planned Operative Procedure(s): EGD, COLONOSCOPY Anesthesia History 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 When Was Last Pacemaker Check QUESTION #4 FULL TEXT: You/Your Family Experience fever (hyperthermia) with Anesthesia Last Oral Intake Last Oral intake: Last Oral Intake NPO since 06:00 06/30/25 13:08 Meds taken in AM with sips of No 06/30/25 13:08 water? Meds patient instructed to take am of surgery PONV PONV - machine tack puller: PONV - machine tack puller Female No 06/28/25 09:08 HX of Motion Sickness No 06/28/25 09:08 HX of N/V After Surgery No 06/28/25 09:08 Non-Smoker No 06/28/25 09:08 Duration of Surgery greater No 06/28/25 09:08 than 60 minutes Number of Risk Factors PONV Score Height & Weight Height & Weight: Anesthesia: Height & Weight Height 5 ft 8 in 06/30/25 13:08 Weight: 102 kg 06/30/25 13:08 Body Mass Index (BMI) 34.2 06/30/25 13:08 Respiratory Assessment Respiratory Assessment - machine tack puller: Respiratory Tract Infection Hx - machine tack puller Hx Respiratory Tract Infection No 06/28/25 09:08 STOP Sleep Apnea STOP Sleep Apnea - machine tack puller: STOP Sleep Apnea - machine tack puller Hx Hypertension Yes: ON MEDS 06/28/25 09:08 Hx Sleep Apnea No 06/28/25 09:08 CPAP BIPAP Do you snore loudly (louder No 06/28/25 09:08 than talking or can be heard Do you often feel tired/ No 06/28/25 09:08 fatigued/ sleepy during daytime? Has anyone observed you stop No 06/28/25 09:08 breathing during sleep? STOP Results Negative 06/28/25 09:08 QUESTION #5 FULL TEXT : Do you snore loudly (louder than talking or can be heard through closed doors)? Tobacco Use History Tobacco Use History - machine tack puller: Tobacco Use History - machine tack puller Tobacco Use Smoking Status Current every day smoker 06/28/25 09:08 Hx Tobacco Use Yes 06/28/25 09:08 Years Smoking 25 06/28/25 09:08 Packs Smoked per Day 0.5 06/28/25 09:08 Smoking Cessation Date was within the last 15 years Hx Smoking Cessation Date Hx Smoking Cessation Counseling Hematologic Medial History Hematologic Hx - machine tack puller: Hematologic Medical Hx - bladder blower Hx of Blood Transfusion No 06/28/25 09:08 Hx of Transfusion in last 3 No 06/28/25 09:08 Months Date of Last Transfusion (if within last 3 months) Ever experience any problems No 06/28/25 09:08 with transfusion(s)? Specify any problems Hx of Preganancy in last 3 N/A 06/28/25 09:08 Months Nurse Filling Out Transfusion JZOLLINGE 06/28/25 09:08 & Questions: Date: 06/28/25 06/28/25 09:08 Time: 09:11 06/28/25 09:08 Patient unable to answer at this time (ie. confused, unrespo /Reproduction History /Reproductive History - machine tack puller: /Reproductive Hx- machine tack puller Hx Now No 06/28/25 09:08 Gestational Age (in weeks): EDC: Hx Hx Para Hx Section SAB No 06/28/25 09:08 Active Medications Active Medications: Current Medications Generic Name Dose Route Start Last Admin Trade Name Freq PRN Reason Stop Dose Admin Lactated Ringer's 1,000 mls @ 15 mls/hr 06/30/25 13:00 06/30/25 13:16 IV 15 mls/hr .Q48H JEFF Administration PFSH Medical History (Updated 06/28/25 @ 09:18 by Eileen Kendall) Gastric reflux Heartburn Wears glasses Smoker Seizure Asthma HTN (hypertension) Home Medications ?Medication ?Instructions ?Recorded ?Last Taken ?Type albuterol sulfate 90 mcg/actuation 2 puff inhalation Q 4H PRN 11/15/22 Unknown Rx aerosol inhaler shortness of breath or wheez ing #6.7 grams ondansetron HCl 4 mg tablet 4 mg PO Q8H PRN nausea and 05/28/25 Unknown Rx vomiting #4 tabs lisinopril 10 mg tablet 20 mg PO DAILY 06/28/2506/05 History Allergy/AdvReac Type Severity Reaction Status Date / Time Penicillins (PCN) Allergy Hives Verified 06/30/25 13:07 Surgical History (Updated 06/28/25 @ 09:08 by Eileen Kendall) History of ankle surgery Social History Smoking Status: Current every day smoker tobacco type: cigarettes Review of Systems (Anesthesia) ROS Narrative System reviewed and no additional complaints, except as documented.
--- NOTE | 2025-06-30 14:00 | EGD_PTH ---
PATIENT: MERRITT MATHUR II LOC: EN U#:[id number] AGE/SX: 49/M ROOM: RE06/30/[address]: Dr. Tommy Pitts DO : 1975 BED: DIS: 06/30/2025 SPEC #: [id number] RECD: 06/30/25 15:15 STATUS: GREGORY JACQUIE #: [id number] JADA: 06/30/25 14:[address]: Tommy Pitts DEPT: SURGICAL PATHOLOGY RECD BY: Poncho Estrada ENTERED: 07/01/25 10:26 SP TYPE: EGD BIOPSY OT DR: Ole Thompson MD Tissues: A - Duodenum, NOS B - Pyloric sphincter C - Esophagus, NOS Procedures: Surgery Specimen Level IV HEADER OPERATION: Colonoscopy, EGD, biopsy PRE-OP DIAGNOSIS: Epigastric abdominal pain, encounter for screening for colonoscopy TISSUE SUBMITTED: A- Duodenum biopsy, B- Pyloric sphincter biopsy, C- Distal esophagus biopsy MICROSCOPIC DIAGNOSIS A. Duodenum, biopsy: - Leroy gland hyperplasia with focal gastric mucin cell metaplasia, suggestive of peptic injury. B. Pyloric sphincter, biopsy: - Features of reactive gastropathy. - Negative for Helicobacter-like organisms (H&E). C. Distal esophagus, biopsy: - Squamocolumnar mucosa with focal squamous metaplasia. - Negative for goblet cell metaplasia. MICROSCOPIC DESCRIPTION Slides are reviewed. GROSS DESCRIPTION A. Received in fixative is one container labeled with the patient's name and designated Duodenum biopsy. The specimen consists of one irregular fragment of light holloway soft tissue that measures 0.5 cm. The specimen is totally submitted in one cassette. B. Received in fixative is one container labeled with the patient's name and designated Pyloric sphincter biopsy. The specimen consists of three irregular fragments of light holloway soft tissue that measure 0.2 to 0.4 cm. The specimen is totally submitted in one cassette. C. Received in fixative is one container labeled with the patient's name and designated Distal esophagus biopsy. The specimen consists of one irregular fragment of light holloway soft tissue that measures 0.5 cm. The specimen is totally submitted in one cassette. AR 07/01/2025 CPT:25199a2
--- NOTE | 2025-06-30 14:04 | PCM.HP.STD ---
[facility] General General Date of Service: 06/30/25 HPI Narrative JAMAR MATHUR, is a 49 M who presentsMICHAENimco MATHUR, is a 49 M who presents to the office today for establishment with [facility] [place] regarding a screening colonoscopy. He is accompanied by his father. Jamar denies knowing why exactly he's here. He is slow and argumentative with his answers to questions regarding his medical history at first. He denies having any concerns about his stomach, digestion, or stools. He denies difficulty chewing and swallowing, cough, throat clearing, heartburn, reflux, nausea, abdominal bloating, excess gas, constipation, diarrhea, hematochezia, and melena. He states he does like to eat a lot of hot foods, spicy foods. He reports eating whole ghost peppers on a bet. When questioned about how his stomach feels after eating foods like that, he states I get this heavy burning pain that stabs, pointing to his epigastric area. He says it only happens after eating spicy foods, but he does eat a lot of spicy things. When offering/explaining a screening colonoscopy to follow upper endoscopy, he exclaims Ain't nobody doing no butt stuff on me! I won't have it! His father tried to calm him with the fact that he'll be asleep and won't know. He yells, I'll wake up swinging, watch me! His father reports several people in their family have dealt with colon cancer. Jamar does finally agree to have a screening colonoscopy, stating as long as I don't have to drink that nasty flavored gallon of stuff. ROS Const Constitutional: No fatigue, fever(s) or weight change ENT ENT: No difficulty swallowing Gastro GI: Positive for change in bowel habits, heartburn and nausea/dyspepsia; No abdominal pain, belching, bloating, change in stool character, coffee ground emesis, constipation, cramping, diarrhea, difficulty swallowing, feeling full early, excessive flatus, incontinent of stools, Vomiting blood/hematemesis, Blood in stool, loose stools, Black,tarry stools, pain with swallowing, vomiting or other Musc Musculoskeletal: Positive for joint swelling and stiffness; No joint pain Skin Skin: No yellowing of the eye or itchy eyes Psych Psychiatric: No anxiety and No depression Endo Endocrine: No fatigue or weight change Aller/Imm Allergy/Immunologic: No itchy eyes Michael/Lymp Hematologic/Lymphatic: No easy bleeding or easy bruising Exam Const General: healthy appearing, comfortable and no acute distress Nutritional Appearance: overweight Orientation: alert and oriented x3 HENMT Head: normal to inspection Eyes General: appearance normal, both eyes and all related structures Sclera: sclerae normal Neck Neck: normal visual inspection and full ROM Chest Chest palpation & inspection: normal inspection of the chest Resp Effort & Inspection: normal respiratory effort and able to speak in complete sentences GI Inspection: normal to inspection and obesity Skin General: ecchymosis Neuro General: patient alert, patient oriented x3 and moves all extremities Cognition: abnormal cognition Speech: speech normal Gait: normal gait Extrem General: full ROM Psych Appearance: grossly normal Mental Status: mental status grossly normal Mood: congruent mood Judgment: fair Assessment and Plan Assessment and Plan (1) Epigastric abdominal pain: Status: Acute (2) Encounter for screening colonoscopy: Status: Acute Medications: New ondansetron HCl take prior to starting bowel prep for colonoscopy 4 mg PO Q8H PRN 4 tabs 0RF nausea and vomiting Discontinued ondansetron Discontinued Reason: Order Completed 4 mg PO Q8H 3 days PRN 9 tabs 0RF nausea and vomiting Plan JAMAR MATHUR, is a 49 M who presents to the office today for establishment with [facility] [place] regarding a screening colonoscopy. Discussed care plan with him and his father present for exam. Explained that he may use whatever flavored electrolyte drink he wants with limitations on mentioned colors. Reviewed bowel prep instructions. ondansetron 4mg PO PRN prior to bowel prep schedule bidirectional endoscopies office FU for results [facility] Medical History (Updated 06/28/25 @ 09:18 by Eileen Kendall) Gastric reflux Heartburn Wears glasses Smoker Seizure Asthma HTN (hypertension) Home Medications ?Medication ?Instructions ?Recorded ?Last Taken ?Type albuterol sulfate 90 mcg/actuation 2 puff inhalation Q4H PRN 11/15/22 Unknown Rx aerosol inhaler shortness of breath or wheezing #6.7 grams ondansetron HCl 4 mg tablet 4 mg PO Q8H PRN nausea and 05/28/25 Unknown Rx vomiting #4 tabs lisinopril 10 mg tablet 20 mg PO DAILY 06/28/25 06/29/25 History Allergy/AdvReac Type Severity Reaction Status Date / Time Penicillins (PCN) Allergy Hives Verified 06/30/25 13:07 Surgical History (Updated 06/28/25 @ 09:08 by Eileen Kendall) History of ankle surgery Social History Smoking Status: Current every day smoker tobacco type: cigarettes Vital Signs Vital Signs Vital Signs: 06/30/25 13:08 06/30/25 13:08 06/30/25 13:31 Temperature 97.9 F 97.9 F Temperature Source Temporal Pulse Rate 80 80 Respiratory Rate 16 16 Respiratory Pattern Normal Blood Pressure 133/97 H 133/97 H Blood Pressure Mean 109 Blood Pressure Source Monitor Blood Pressure Position Sitting Blood Pressure Location Left Arm Pulse Ox 100 100 Oxygen Delivery Method Room Air Room Air Weight Weight: 224 lb 13.944 oz Body Mass Index (BMI) 34.2 Assessment & Plan Assessment/Plan (1) Encounter for screening colonoscopy: (2) Epigastric abdominal pain: PLAN: Plan Patient will undergo evaluation of his upper GI tract. He was explained alternatives, risk benefits complication concept which is . He will have an ASA 3.
--- NOTE | 2025-06-30 15:16 | PCM.POST.ANE ---
Anesthesia: Postop Eval I Current Vital Signs Temperature: 97.4 F Pulse Rate: 60 Blood Pressure: 109/74 Respiratory Rate: 16 Pulse Ox: 97 Oxygen Delivery Method: Room Air Assessment Airway patent: Yes Spontaneous unlabored respirations: Yes Mental status: Asleep nausea: No Vomiting: No Anesthesia Complication: No Fluid Hydration Crystalloid volume administer (ml): 600 Total IV fluid infused: 600 Progress Note Anesthesia document: Postop Eval 1 completed: Yes
--- NOTE | 2025-06-30 15:20 | OP.EGD_ITS ---
Patient Name: Jamar Dutton Procedure Date: 06/30/2025 2:43 PM Date of : 1975 Age: 49 Procedure: Upper GI endoscopy Indications: Epigastric abdominal pain, Dyspepsia, Indigestion, Suspected esophageal reflux Providers: Tommy Pitts DO Referring MD: Ole Thompson Md Medicines: Monitored Anesthesia Care Patient Profile: This is a 49 year old male. Refer to note in patient chart for documentation of history and physical. Patient has symptoms of acute left upper quadrant abdominal pain, chronic epigastric abdominal pain, acute dyspepsia, chronic heartburn and chronic nausea. Complications: No immediate complications. Procedure: Pre-Anesthesia Assessment: - Prior to the procedure, a History and Physical was performed, and patient medications and allergies were reviewed. The patient is competent. The risks and benefits of the procedure and the sedation options and risks were discussed with the patient. All questions were answered and informed consent was obtained. Patient identification and proposed procedure were verified by the physician in the pre-procedure area. Mental Status Examination: alert and oriented. Airway Examination: normal oropharyngeal airway and neck mobility. Respiratory Examination: clear to auscultation. CV Examination: normal. Prophylactic Antibiotics: The patient does not require prophylactic antibiotics. Prior Anticoagulants: The patient has taken no anticoagulant or antiplatelet agents. ASA Grade Assessment: II - A patient with mild systemic disease. After reviewing the risks and benefits, the patient was deemed in satisfactory condition to undergo the procedure. The anesthesia plan was to use monitored anesthesia care (MAC). Immediately prior to administration of medications, the patient was re-assessed for adequacy to receive sedatives. The heart rate, respiratory rate, oxygen saturations, blood pressure, adequacy of pulmonary ventilation, and response to care were monitored throughout the procedure. The physical status of the patient was re-assessed after the procedure. After obtaining informed consent, the endoscope was passed under direct vision. Throughout the procedure, the patient's blood pressure, pulse, and oxygen saturations were monitored continuously. The Colonoscope was introduced through the mouth, and advanced to the third part of the duodenum. Small bowel enteroscopy was deemed necessary. The upper GI endoscopy was accomplished without difficulty. The patient tolerated the procedure well. Scope In: 2:50:09 PM Scope Out: 2:53:14 PM Total Procedure Duration Time 0 hours 3 minutes 5 seconds Findings: The Z-line was irregular and was found 40 cm from the incisors. Biopsies were taken with a cold forceps for histology. Verification of patient identification for the specimen was done. Estimated blood loss was minimal. Localized mildly erythematous mucosa without bleeding was found in the prepyloric region of the stomach and at the pylorus. Biopsies were taken with a cold forceps for histology. Verification of patient identification for the specimen was done. Estimated blood loss was minimal. Biopsies were taken with a cold forceps for Helicobacter pylori testing. Verification of patient identification for the specimen was done. Estimated blood loss was minimal. Patchy mildly erythematous mucosa without active bleeding and with no stigmata of bleeding was found in the duodenal bulb. Biopsies were taken with a cold forceps for histology. Verification of patient identification for the specimen was done. Estimated blood loss was minimal. A small hiatal hernia was present. Impression: - Z-line irregular, 40 cm from the incisors. Biopsied. - Erythematous mucosa in the prepyloric region of the stomach and pylorus. Biopsied. - Erythematous duodenopathy. Biopsied. Recommendation: - Discharge patient to home. - Resume previous diet. - Continue present medications. - Await pathology results. Procedure Code(s): --- Professional --- 46532, Small intestinal endoscopy, enteroscopy beyond second portion of duodenum, not including ileum; with biopsy, single or multiple CPT copyright 2021 [employer]. All rights reserved. The codes documented in this report are preliminary and upon passenger brakeman review may be revised to meet current compliance requirements. Tommy Pitts DO 06/30/2025 3:20:20 PM This report has been signed electronically. Number of Addenda: 0 Note Initiated On: 06/30/2025 2:43 PM
--- NOTE | 2025-06-30 15:21 | OP.PROVAT_ITS ---
06/30/2025 Ole Thompson Md Re : Upper GI endoscopy procedure for Jamar Dutton Dear Jay This procedure was performed on Monday, June 30, 2025. My impressions and recommendations are as follows: Impressions : - Z-line irregular, 40 cm from the incisors. Biopsied. - Erythematous mucosa in the prepyloric region of the stomach and pylorus. Biopsied. - Erythematous duodenopathy. Biopsied. Recommendations : - Discharge patient to home. - Resume previous diet. - Continue present medications. - Await pathology results. My findings are described in the full procedure note, which is enclosed. If I can be of further assistance, please feel free to contact me at . Sincerely, Tommy Pitts, 06/30/2025 3:20:20 PM This report has been signed electronically.
--- NOTE | 2025-06-30 15:25 | OP.COLON_ITS ---
Patient Name: Jamar Dutton Procedure Date: 06/30/2025 2:53 PM Date of : 1975 Age: 49 Procedure: Colonoscopy Indications: Screening for colorectal malignant neoplasm Providers: Tommy Pitts DO Referring MD: Ole Thompson Md Medicines: Monitored Anesthesia Care Patient Profile: This is a 49 year old male. Refer to note in patient chart for documentation of history and physical. Patient has symptoms of acute left upper quadrant abdominal pain, chronic epigastric abdominal pain, acute dyspepsia, chronic heartburn and chronic nausea. Last Colonoscopy: none. The patient's first colonoscopy is today. Complications: No immediate complications. Procedure: Pre-Anesthesia Assessment: - Prior to the procedure, a History and Physical was performed, and patient medications and allergies were reviewed. The patient is competent. The risks and benefits of the procedure and the sedation options and risks were discussed with the patient. All questions were answered and informed consent was obtained. Patient identification and proposed procedure were verified by the physician in the pre-procedure area. Mental Status Examination: alert and oriented. Airway Examination: normal oropharyngeal airway and neck mobility. Respiratory Examination: clear to auscultation. CV Examination: normal. Prophylactic Antibiotics: The patient does not require prophylactic antibiotics. Prior Anticoagulants: The patient has taken no anticoagulant or antiplatelet agents. ASA Grade Assessment: II - A patient with mild systemic disease. After reviewing the risks and benefits, the patient was deemed in satisfactory condition to undergo the procedure. The anesthesia plan was to use monitored anesthesia care (MAC). Immediately prior to administration of medications, the patient was re-assessed for adequacy to receive sedatives. The heart rate, respiratory rate, oxygen saturations, blood pressure, adequacy of pulmonary ventilation, and response to care were monitored throughout the procedure. The physical status of the patient was re-assessed after the procedure. After I obtained informed consent, the scope was passed under direct vision. Throughout the procedure, the patient's blood pressure, pulse, and oxygen saturations were monitored continuously. The Colonoscope was introduced through the anus and advanced to the cecum, identified by appendiceal orifice and ileocecal valve. The colonoscopy was performed with ease. The patient tolerated the procedure well. The quality of the bowel preparation was adequate. The ileocecal valve, appendiceal orifice, and rectum were photographed. Scope In: 2:54:45 PM Scope Withdrawal Time 0 hours 7 minutes 26 seconds Scope Out: 3:06:16 PM Total Procedure Duration Time 0 hours 11 minutes 31 seconds Findings: The perianal and digital rectal examinations were normal. A few small-mouthed diverticula were found in the recto-sigmoid colon, sigmoid colon and descending colon. There was narrowing of the colon in association with the diverticular opening. There was evidence of diverticular spasm. The exam was otherwise without abnormality on direct and retroflexion views. Impression: - Mild diverticulosis in the recto-sigmoid colon, in the sigmoid colon and in the descending colon. There was narrowing of the colon in association with the diverticular opening. There was evidence of diverticular spasm. - The examination was otherwise normal on direct and retroflexion views. - No specimens collected. Recommendation: - Discharge patient to home. - Resume previous diet. - Continue present medications. - Repeat colonoscopy in 10 years for screening purposes. Procedure Code(s): --- Professional --- G0121, Colorectal cancer screening; colonoscopy on individual not meeting criteria for high risk CPT copyright 2021 [employer]. All rights reserved. The codes documented in this report are preliminary and upon technology recruiter review may be revised to meet current compliance requirements. Tommy Pitts DO 06/30/2025 3:24:39 PM This report has been signed electronically. Number of Addenda: 0 Note Initiated On: 06/30/2025 2:53 PM
--- NOTE | 2025-06-30 15:25 | OP.PROVAT_ITS ---
06/30/2025 Ole Thompson Md Re : Colonoscopy procedure for Jamar Dutton Dear Jay This procedure was performed on Monday, June 30, 2025. My impressions and recommendations are as follows: Impressions : - Mild diverticulosis in the recto-sigmoid colon, in the sigmoid colon and in the descending colon. There was narrowing of the colon in association with the diverticular opening. There was evidence of diverticular spasm. - The examination was otherwise normal on direct and retroflexion views. - No specimens collected. Recommendations : - Discharge patient to home. - Resume previous diet. - Continue present medications. - Repeat colonoscopy in 10 years for screening purposes. My findings are described in the full procedure note, which is enclosed. If I can be of further assistance, please feel free to contact me at . Sincerely, Tommy Pitts, 06/30/2025 3:24:39 PM This report has been signed electronically.
--- NOTE | 2025-06-30 15:56 | PCM.POSTANE2 ---
Anesthesia Postop Eval I Sum Postop Eval Completion status Anesthesia document: Postop Eval 1 completed: Yes Anesthesia Postop Eval I Summary Anesthesia Postop Eval I Summary: Anesthesia Postop Eval I: Assessment Summary Airway patent Yes 06/30/25 15:17 [email or web address] Spontaneous unlabored Yes 06/30/25 15:17 [email or web address] respirations Mental status Asleep 06/30/25 15:17 [email or web address] nausea No 06/30/25 15:17 [email or web address] Vomiting No 06/30/25 15:17 [email or web address] Anesthesia Postop Eval I: Fluid Summary Crystalloid volume administer 600 06/30/25 15:17 [email or web address] (ml) Colloids volume administered ( ml) Blood Product volume administered (ml) Total IV fluid infused 600 06/30/25 15:17 [email or web address] Anesthesia Postop Eval I: Summary Notes Anesthesia Complication No 06/30/25 15:17 [email or web address] Anesthesia Complication Comment: Post-operative progress note Anesthesia: Postop Eval II Evaluation Mental status: Awake Pain Level: 0 nausea: No Vomiting: No Complications Anesthesia Complication: No
--- OUTSIDE RECORDS SUMMARY | 2025-06-30 21:56 | XMS RPT_ITS | CCD ---
Author Organization [facility] Care Team Providers Care Cyber Security Specialist Name Role Phone Ole Thompson MD Primary Care Provider [phone] Ole Thompson MD Referring Provider [phone] Shania Jolly Attending Provider Ole Thompson Primary Care Unavailable Shania Byrnes Attending Unavailable Ole Thompson Referring Unavailable Ole Thompson Attending Unavailable Jay, Ole Primary Care Unavailable Ole Thompson Referring Unavailable Jay, Ole Primary Care Unavailable FriendTommy Attending Unavailable Ole Thompson Referring Unavailable Friend Dr. Tommy TSE Attending Provider Allergies Allergy Classification Reported Allergen(s) Allergy Type Date of Onset Reaction(s) Facility (9 sources) Penicillins Allergy to substance 11-15-2022 [facility] (1 source) Penicillins Drug allergy (disorder) 06-28-2025 [facility] Medications Current Medications Medication Drug Class(es) Dates Sig (Normalized) Sig (Original) [id number] 200 actuat albuterol 0.09 mg/actuat metered dose inhaler (9 sources) beta2-Adrenergic Agonist Start: 11-15-2022 Albuterol Sulfate 90 mcg/actuation HFA aerosol inhaler Active 2 NMA INHALATION Q4H as needed for shortness of breath or wheezing 6.7 0 November 15, 2022 1:00am Start: 11-15-2022 take 1 puff(s) by in halation every four hours Albuterol Sulfate Active 2 PUFF INHALATION Q4H 6.7 November 15, 2022 12:00am lisinopril 10 mg oral tablet (10 sources) Angiotensin Converting Enzyme Inhibitor Start: 06-28-2025 take 2 tablets by mouth once daily Lisinopril 10 MG tablet Active 20 mg PO DAILY June 28, 2025 12:00am Start: 04-30-2016 End: 06-28-2025 take 1 tablet by mouth once daily Lisinopril 10 MG tablet Discontinued 10 mg PO DAILY April 30, 2016 12:00am June 28, 2025 9:03am ondansetron 4 mg oral tablet (9 sources) Serotonin-3 Receptor Antagonist Start: 05-28-2025 take 1 tablet by mouth every eight hours as needed Ondansetron Hcl 4 mg tablet Active 4 mg PO Q8H as needed for nausea and vomiting 4 0 May 28, 2025 12:00am take prior to starting bowel prep for colonoscopy Start: 02-21-2023 End: 05-28-2025 take 1 tablet by mouth every eight hours as needed for nausea and vomiting Ondansetron 4 mg tablet,disintegrating Discontinued 4 mg PO Q8H as needed for nausea and vomiting 9 3 0 February 21, 2023 12:00am May 28, 2025 3:28pm Completed/Discontinued Medications Medication Drug Class(es) Dates Sig (Normalized) Sig (Original) benzonatate 100 mg oral capsule (9 sources) Non-narcotic Antitussive Start: 11-15-2022 End: 06-28-2025 take 2 capsules by mouth three times daily as needed for cough Benzonatate 100 mg capsule Discontinued 200 mg PO 3 TIMES DAILY NEEDED as needed for Cough 20 November 15, 2022 1:00am June 28, 2025 9:00am Start: 11-15-2022 take 200 mg by mouth three times daily as needed Benzonatate Active 200 MG PO 3 TIMES DAILY NEEDED November 15, 2022 12:00am bisacodyl 5 mg delayed release oral tablet (1 source) Stimulant Laxative Start: 06-28-2025 End: 06-30-2025 take 4 tablets by mouth once Bisacodyl (Dulcolax (Bisacodyl)) 5 mg tablet,delayed release (DR/EC) Discontinued 20 mg PO ONCE 4 0 June 28, 2025 12:00am June 30, 2025 1:08pm Take 4 tabs po at once for colon prep losartan potassium 50 mg oral tablet (9 sources) Angiotensin 2 Receptor Marylu Start: 12-14-2021 End: 06-28-2025 take 1 tablet by mouth once daily Losartan 50 mg tablet Discontinued 50 mg PO DAILY 30 December 142 1:00am June 28, 2025 9:03am pantoprazole 40 mg delayed release oral tablet (7 sources) Proton Pump Inhibitor Start: 04-19-2023 End: 06-28-2025 take 1 tablet by mouth once daily Pantoprazole (Protonix) 40 mg tablet,delayed release (DR/EC) Discontinued 40 mg PO DAILY 30 0 April 19, 2023 12:00am June 28, 2025 9:01am polyethylene glycol 3350 94980 mg powder for oral solution (1 source) Osmotic Laxative Start: 06-28-2025 End: 06-30-2025 Polyethylene Glycol 3350 (Miralax) 17 gram/dose powder Discontinued 4 g PO daily 238 0 June 28, 2025 12:00am June 30, 2025 1:08pm Mix entire bottle into 64oz clear liquid for colon prep sucralfate 1000 mg oral tablet (6 sources) Aluminum Complex Start: 10-04-2023 End: 06-28-2025 take 1 tablet by mouth twice daily Sucralfate (Carafate) 1 gram tablet Discontinued 1 g PO TWICE A DAY 14 0 October 04, 2023 1:00am June 28, 2025 9:01am Problems Problem Classification Problem Date Documented Da te Episodic/Chronic Abdominal pain (9 sources) Abdominal pain; Translations: [Unspecified abdominal pain] 04-19-2023 Episodic Acute bronchitis (9 sources) Acute bronchitis co-occurrent with wheeze; Translations: [Acute bronchitis, unspecified] 11-23-2022 Episodic Asthma (3 sources) Reactive airway disease; Translations: [Unspecified asthma, uncomplicated] 01-06-2024 Chronic Crushing injury or internal injury (5 sources) Crushing injury of finger; Translations: [Crushing injury of unspecified finger(s), initial encounter] 11-19-2023 Episodic Essential hypertension (13 sources) Elevated blood pressure; Translations: [Essential (primary) hypertension] Onset: 11-23-2022 Chronic Gastrointestinal hemorrhage (13 sources) Hematemesis; Translations: [Hematemesis] 04-19-2023 Episodic Nausea and vomiting (7 sources) Nausea and vomiting; Translations: [Nausea with vomiting, unspecified] 04-19-2023 Episodic Other screening for suspected conditions (not mental disorders or infectious disease) (2 sources) Patient encounter status; Translations: [Encounter for screening for malignant neoplasm of colon] 05-29-2025 Episodic Residual codes; unclassified (6 sources) FH: Gastrointestinal disease; Translations: [Family history of other diseases of the digestive system] 10-04-2023 Episodic Results Test Name Value Interpretation Reference Range Facility Gastroenterology Visit Repor ton 05-28-2025 Gastroenterology Visit Report [facility] [address] [place] [address] OFFICE VISIT Date of Service: 05/28/25 MR#: [id number] Acct: [id number] Name: MERRITT DUTTON II Rep #: [id number] : 1975 Provider: MELCHOR pfeiffer Age/Sex: 49/M Location: [facility] Status: Signed Intake Vital Signs 01/05/24 23:19 Height 5 ft 7 in Intake Visit Reasons: GI ISSUES PRE EGD/COLONOSCOPY Allergies Penicillins (PCN) Allergy (Verified 01/05/24 23:19) Hives Medications ???Medication ???Instructions ???Recorded ???Confirmed ???Type lisinopril 10 mg tablet 10 mg PO DAILY #30 tabs 04/30/16 0 05/28/25 Rx losartan 50 mg tablet 50 mg PO DAILY #30 tabs 12/14/21 0 05/28/25 Rx albuterol sulfate 90 mcg/actuation 2 puff inhalation Q4H PRN 05/28/25 Rx aerosol inhaler shortness of breath or wheezing #6.7 grams benzonatate 100 mg capsule 200 mg (2 x 100 mg) PO TID PRN PRN 11/15/22 05/28/25 Rx Cough #20 CAPSULES pantoprazole 40 mg tablet,delayed 40 mg PO DAILY #30 tabs 04/19/23 05/28/25 Rx release (Protonix) sucralfate 1 gram tablet (Carafate) 1 g PO BID #14 tabs 10/04/23 Rx ondansetron HCl 4 mg tablet 4 mg PO Q8H PRN nausea and 5 05/28/25 Rx vomiting #4 tabs PFSH Medical History Seizure Asthma HTN (hypertension) Surgical History History of ankle surgery Social History Smoking Status: Current every day smoker tobacco type: cigarettes HPI HPI Details: MERRITT DUTTON, is a 49 M who presents to the office today for establishment with [facility] regarding a screening colonoscopy. He is accompanied by his father. Merritt denies knowing why exactly he's here. He is slow and argumentative with his answers to questions regarding his medical history at first. He denies having any concerns about his stomach, digestion, or stools. He denies difficulty chewing and swallowing, cough, throat clearing, heartburn, reflux, nausea, abdominal bloating, excess gas, constipation, diarrhea, hematochezia, and melena. He states he does like to eat a lot of hot foods, spicy foods. He reports eating whole ghost peppers on a bet. When questioned about how his stomach feels after eating foods like that, he states I get this heavy burning pain that stabs, pointing to his epigastric area. He says it only happens after eating spicy foods, but he does eat a lot of spicy things. When offering/explaining a screening colonoscopy to follow upper endoscopy, he exclaims Ain't nobody doing no butt stuff on me! I won't have it! His father tried to calm him with the fact that he'll be asleep and won't know. He yells, I'll wake up swinging, watch me! His father reports several people in their family have dealt with colon cancer. Merritt does finally agree to have a screening colonoscopy, stating as long as I don't have to drink that nasty flavored gallon of stuff. ROS Const Constitutional: No fatigue, fever(s) or weight change ENT ENT: No difficulty swallowing Gastro GI: Positive for change in bowel habits, heartburn and nausea/dyspepsia; No abdominal pain, belching, bloating, change in stool character, coffee ground emesis, constipation, cramping, diarrhea, difficulty swallowing, feeling full early, excessive flatus, incontinent of stools, Vomiting blood/hematemesis, Blood in stool, loose stools, Black,tarry stools, pain with swallowing, vomiting or other Musc Musculoskeletal: Positive for joint swelling and stiffness; No joint pain Skin Skin: No yellowing of the eye or itchy eyes Psych Psychiatric: No anxiety and No depression Endo Endocrine: No fatigue or weight change Aller/Imm Allergy/Immunologic : No itchy eyes Michael/Lymp Hematologic/Lymphat ic: No easy bleeding or easy bruising Exam Const General: healthy appearing, comfortable and no acute distress Nutritional Appearance: overweight Orientation: alert and oriented x3 HENMT Head: normal to inspection Eyes General: appearance normal, both eyes and all related structures Sclera: sclerae normal Neck Neck: normal visual inspection and full ROM Chest Chest palpation inspection: normal inspection of the chest Resp Effort Inspection: normal respiratory effort and able to speak in complete sentences GI Inspection: normal to inspection and obesity Skin General: ecchymosis Neuro General: patient alert, patient oriented x3 and moves all extremities Cognition: abnormal cognition Speech: speech normal Gait: normal gait Extrem General: full ROM Psych Appearance: grossly normal Mental Status: mental status grossly normal Mood: congruent mood Judgment: fair Assessment and Plan A (more content not included)... Normal [facility] CBC W/Diff, Automatedon 12-05 Absolute Lymph 2.78 X10 3/uL Normal 0.83-4.51 [facility] Comment on above: Order Comment: Order Date: 12/18/24 Order Info: 0184-1 - CBCD Performed By: #### L 500.4100, L500.4050, L100.0100, [id number] #### [facility] [address] [place], [place], [id number] Absolute Neut 3.6 X10 3/uL Normal 2.0-7.7 [facility] Comment on above: Order Comment: Order Date: 12/18/24 Order Info: 0184-1 - CBCD Performed By: #### L 500.4100, L500.4050, L100.0100, [id number] #### [facility] [address] [place], [place], [id number] Basophils/100 WBC (Bld) 1.1 % High 0-1 [facility] Comment on above: Order Comment: Order Date: 12/18/24 Order Info: 0184-1 - CBCD Performed By: #### L 500.4100, L500.4050, L100.0100, [id number] #### [facility] [address] [place], [address] Eosinophils/100 WBC (Bld) 2.9 % Normal 0-5 [facility] Comment on above: Order Comment: Order Date: 12/18/24 Order Info: 0184-1 - CBCD Performed By: #### L 500.4100, L500.4050, L100.0100, [id number] #### [facility] [address] [place], [address] Erythrocyte distribution width (RBC) [Ratio] 12.6 % Normal 11.6-14.6 [facility] Comment on above: Order Comment: Order Date: 12/18/24 Order Info: 0184-1 - CBCD Performed By: #### L 500.4100, L500.4050, L100.0100, [id number] #### [facility] [address] [place], [address] Hematocrit (Bld) [Volume fraction] 46.4 % Normal 40-54 [facility] Comment on above: Order Comment: Order Date: 12/18/24 Order Info: 0184-1 - CBCD Performed By: #### L 500.4100, L500.4050, L100.0100, [id number] #### [facility] [address] [place], [address] Hemoglobin (Bld) [Mass/Vol] 14.9 g/dL Normal 13.0-16.5 [facility] Comment on above: Order Comment: Order Date: 12/18/24 Order Info: 0184-1 - CBCD Performed By: #### L 500.4100, L500.4050, L100.0100, [id number] #### [facility] [address] [place], [address] IG% 0.300 Normal 0.0-0.9 [facility] Comment on above: Order Comment: Order Date: 12/18/24 Order Info: 0184-1 - CBCD Result Comment: IG% - Immature Granulocytes (promyelocytes, myelocytes and metamyelocytes) > 1% indicates that a LEFT SHIFT is Present. Performed By: #### L 500.4100, L500.4050, L100.0100, [id number] #### [facility] [address] [place], [address] Lymphocytes/100 WBC (Bld) 38.8 % Normal 19-41 [facility] Comment on above: Order Comment: Order Date: 12/18/24 Order Info: 0184-1 - CBCD Performed By: #### L 500.4100, L500.4050, L100.0100, [id number] #### [facility] [address] [place], [address] MCH (RBC) [Entitic mass] 28.3 pg Normal 27.0-32.0 [facility] Comment on above: Order Comment: Order Date: 12/18/24 Order Info: 0184-1 - CBCD Performed By: #### L 500.4100, L500.4050, L100.0100, [id number] #### [facility] [address] [place], [address] MCHC (RBC) [Mass/Vol] 32.1 g/dL Normal 32-36 [facility] Comment on above: Order Comment: Order Date: 12/18/24 Order Info: 0184-1 - CBCD Performed By: #### L 500.4100, L500.4050, L100.0100, [id number] #### [facility] [address] [place], [address] MCV (RBC) [Entitic vol] 88.0 fL Normal 80-94 [facility] Comment on above: Order Comment: Order Date: 12/18/24 Order Info: 0184-1 - CBCD Performed By: #### L 500.4100, L500.4050, L100.0100, [id number] #### [facility] [address] [place], [address] Monocytes/100 WBC (Bld) 6.4 % Normal 0-10 [facility] Comment on above: Order Comment: Order Date: 12/18/24 Order Info: 0184-1 - CBCD Performed By: #### L 500.4100, L500.4050, L100.0100, [id number] #### [facility] [address] [place], [address] Neutrophils/100 WBC (Bld) 50.5 % Normal 47-70 [facility] Comment on above: Order Comment: Order Date: 12/18/24 Order Info: 0184-1 - CBCD Performed By: #### L 500.4100, L500.4050, L100.0100, [id number] #### [facility] [address] [place], [address] Nucleated RBC (Bld) [#/Vol] 0 10*3/uL Normal 0-5 [facility] Comment on above: Order Comment: Order Date: 12/18/24 Order Info: 0184-1 - CBCD Performed By: #### L 500.4100, L500.4050, L100.0100, [id number] #### [facility] [address] [place], [address] Platelet mean volume (Bld) [Entitic vol] 10.6 fL Normal 6.2-12.0 [facility] Comment on above: Order Comment: Order Date: 12/18/24 Order Info: 0184-1 - CBCD Performed By: #### L 500.4100, L500.4050, L100.0100, [id number] #### [facility] [address] [place], [address] Platelets (Bld) [#/Vol] 231 10*3/uL Normal 150-450 [facility] Comment on above: Order Comment: Order Date: 12/18/24 Order Info: 0184-1 - CBCD Performed By: #### L 500.4100, L500.4050, L100.0100, [id number] #### [facility] [address] [place], [address] RBC (Bld) [#/Vol] 5.27 10*6/uL Normal 4.6-6.2 [facility] Comment on above: Order Comment: Order Date: 12/18/24 Order Info: 0184-1 - CBCD Performed By: #### L 500.4100, L500.4050, L100.0100, [id number] #### [facility] [address] [place], [address] RDW SD 40.6 fl Normal 35.1-43.9 [facility] Comment on above: Order Comment: Order Date: 12/18/24 Order Info: 0184-1 - CBCD Performed By: #### L 500.4100, L500.4050, L100.0100, [id number] #### [facility] [address] [place], [address] WBC (Bld) [#/Vol] 7.2 10*3/uL Normal 4.4-11.0 [facility] Comment on above: Order Comment: Order Date: 12/18/24 Order Info: 0184-1 - CBCD Performed By: #### L 500.4100, L500.4050, L100.0100, [id number] #### [facility] [address] [place], [address] Comprehensive Metabolic Prof ncon 12-18-2024 Albumin [Mass/Vol] 3.7 g/dL Normal 3.2-5.0 [facility] Comment on above: Order Comment: Order Date: 12/18/24 Order Info: 785- - CMP Order Info: - LIPID Order Info: 3 - TSH Performed By: #### L 500.4100, L500.4050, L100.0100, [id number] #### [facility] [address] [place], [address] Albumin/Globulin [Mass ratio] 0.8 {ratio} Low 0.9-2.4 [facility] Comment on above: Order Comment: Order Date: 12/18/24 Order Info: 785- - CMP Order Info: - LIPID Order Info: [id number] - TSH Performed By: #### L 500.4100, L500.4050, L100.0100, [id number] #### [facility] [address] [place], [address] ALK P 58 U/L Normal 45-117 [facility] Comment on above: Order Comment: Order Date: 12/18/24 Order Info: 07 - CMP Order Info: [id number] - LIPID Order Info: 3 - TSH Performed By: #### L 500.4100, L500.4050, L100.0100, [id number] #### [facility] [address] [place], [address] ALT [Catalytic activity/Vol] 24 U/L Normal 16-61 [facility] Comment on above: Order Comment: Order Date: 12/18/24 Order Info: 0786- - CMP Order Info: [id number] - LIPID Order Info: 3 - TSH Performed By: #### L 500.4100, L500.4050, L100.0100, [id number] #### [facility] [address] [place], [address] AST [Catalytic activity/Vol] 16 U/L Normal 15-37 [facility] Comment on above: Order Comment: Order Date: 12/18/24 Order Info: [id number] - CMP Order Info: - LIPID Order Info: [id number] - TSH Performed By: #### L 500.4100, L500.4050, L100.0100, [id number] #### [facility] [address] [place], [address] Bilirubin [Mass/Vol] 0.30 mg/dL Normal 0.20-1.00 [facility] Comment on above: Order Comment: Order Date: 12/18/24 Order Info: [id number] - CMP Order Info: - LIPID Order Info: [id number] - TSH Result Comment: For patients on eltrombopag therapy, use of Dimension [place] TBIL is not recommended. Performed By: #### L 500.4100, L500.4050, L100.0100, [id number] #### [facility] [address] [place], [address] BUN/CRE 18.1 RATIO Normal 10-20 [facility] Comment on above: Order Comment: Order Date: 12/18/24 Order Info: 07 - CMP Order Info: [id number] - LIPID Order Info: 3 - TSH Performed By: #### L 500.4100, L500.4050, L100.0100, [id number] #### [facility] [address] [place], [address] CA,Total 9.3 mg/dL Normal 8.5-10.1 [facility] Comment on above: Order Comment: Order Date: 12/18/24 Order Info: 07 - CMP Order Info: - LIPID Order Info: [id number] - TSH Performed By: #### L 500.4100, L500.4050, L100.0100, [id number] #### [facility] [address] [place], [address] Chloride [Moles/Vol] 109 mmol/L High 98-107 [facility] Comment on above: Order Comment: Order Date: 12/18/24 Order Info: 07- - CMP Order Info: [id number] - LIPID Order Info: 3 - TSH Performed By: #### L 500.4100, L500.4050, L100.0100, [id number] #### [facility] [address] [place], [address] CO2 [Moles/Vol] 24.0 mmol/L Normal 21.0-32.0 [facility] Comment on above: Order Comment: Order Date: 12/18/24 Order Info: [id number] - CMP Order Info: - LIPID Order Info: [id number] - TSH Performed By: #### L 500.4100, L500.4050, L100.0100, [id number] #### [facility] [address] [place], [address] Creatinine [Mass/Vol] 1.00 mg/dL Normal 0.70-1.30 [facility] Comment on above: Order Comment: Order Date: 12/18/24 Order Info: 07 - CMP Order Info: [id number] - LIPID Order Info: [id number] - TSH Result Comment: The validity of the calculated GFR GFRAA in patients over 70 years has not been determined. Clinical correlation is essential. Performed By: #### L 500.4100, L500.4050, L100.0100, [id number] #### [facility] [address] [place], [address] EST GFR - AA 103 mL/min Normal >60 [facility] Comment on above: Order Comment: Order Date: 12/18/24 Order Info: 0786 - CMP Order Info: [id number] - LIPID Order Info: 3 - TSH Result Comment: Afri can Icelandic GFR Calc Performed By: #### L 500.4100, L500.4050, L100.0100, [id number] #### [facility] [address] [place], [address] GAP 7 Normal 5-15 [facility] Comment on above: Order Comment: Order Date: 12/18/24 Order Info: 07- - CMP Order Info: [id number] - LIPID Order Info: [id number] - TSH Performed By: #### L 500.4100, L500.4050, L100.0100, [id number] #### [facility] [address] [place], [address] GFR/1.73 sq M.predicted among non-blacks MDRD (S/P/Bld) [Vol rate/Area] 85 mL/min/{1.73_m2} Normal >60 [facility] Comment on above: Order Comment: Order Date: 12/18/24 Order Info: [id number] - CMP Order Info: - LIPID Order Info: [id number] - TSH Result Comment: Non- GFR Calc Performed By: #### L 500.4100, L500.4050, L100.0100, L501.9520 #### [facility] [address] [place], [address] Globulin (S) [Mass/Vol] 4.4 g/dL High 2.2-4.2 [facility] Comment on above: Order Comment: Order Date: 12/18/24 Order Info: [id number] - CMP Order Info: [id number] - LIPID Order Info: [id number] - TSH Performed By: #### L 500.4100, L500.4050, L100.0100, [id number] #### [facility] [address] [place], [address] Glucose [Mass/Vol] 94 mg/dL Normal 74-106 [facility] Comment on above: Order Comment: Order Date: 12/18/24 Order Info: 785- - CMP Order Info: [id number] - LIPID Order Info: [id number] - TSH Performed By: #### L 500.4100, L500.4050, L100.0100, [id number] #### [facility] [address] [place], [address] Potassium [Moles/Vol] 5.1 mmol/L Normal 3.5-5.1 [facility] Comment on above: Order Comment: Order Date: 12/18/24 Order Info: 0786- - CMP Order Info: [id number] - LIPID Order Info: [id number] - TSH Performed By: #### L 500.4100, L500.4050, L100.0100, [id number] #### [facility] [address] [place], [address] Sodium [Moles/Vol] 140 mmol/L Normal 136-145 [facility] Comment on above: Order Comment: Order Date: 12/18/24 Order Info: 0786- - CMP Order Info: [id number] - LIPID Order Info: [id number] - TSH Performed By: #### L 500.4100, L500.4050, L100.0100, [id number] #### [facility] [address] [place], [address] T PROT 8.1 g/dL Normal 6.4-8.2 [facility] Comment on above: Order Comment: Order Date: 12/18/24 Order Info: 0786- - CMP Order Info: [id number] - LIPID Order Info: [id number] - TSH Performed By: #### L 500.4100, L500.4050, L100.0100, [id number] #### [facility] [address] [place], [address] Urea nitrogen [Mass/Vol] 18 mg/dL Normal 7-18 [facility] Comment on above: Order Comment: Order Date: 12/18/24 Order Info: 0786- - CMP Order Info: [id number] - LIPID Order Info: [id number] - TSH Performed By: #### L 500.4100, L500.4050, L100.0100, [id number] #### [facility] [address] [place], [address] Lipid Profileon 12-18-2024 Cholesterol [Mass/Vol] 200 mg/dL Normal 200 [facility] Comment on above: Order Comment: Order Date: 12/18/24 Order Info: 0786- - CMP Order Info: - LIPID Order Info: [id number] - TSH Result Comment: <200 mg/dL Desirable 200-240 mg/dL Borderline >240 mg/dL High Risk Performed By: #### L 500.4100, L500.4050, L100.0100, L501.9520 #### [facility] [address] [place], [address] Cholesterol in HDL [Mass/Vol] 45 mg/dL Normal [facility] Comment on above: Order Comment: Order Date: 12/18/24 Order Info: [id number] - CMP Order Info: - LIPID Order Info: [id number] - TSH Result Comment: The drugs N-Acetylcysteine and Metamizole may falsely depress this assay. Reference Range HDL <40 mg/dL Low HDL Cholesterol HDL >or= 60 mg/dL High HDL Cholesterol Performed By: #### L 500.4100, L500.4050, L100.0100, L501.9520 #### [facility] [address] [place], [address] Cholesterol in LDL [Mass/Vol] 141 mg/dL High 0-130 [facility] Comment on above: Order Comment: Order Date: 12/18/24 Order Info: [id number] - CMP Order Info: [id number] - LIPID Order Info: [id number] - TSH Performed By: #### L 500.4100, L500.4050, L100.0100, [id number] #### [facility] [address] [place], [address] Cholesterol in VLDL [Mass/Vol] 14 mg/dL Normal 5-40 [facility] Comment on above: Order Comment: Order Date: 12/18/24 Order Info: [id number] - CMP Order Info: [id number] - LIPID Order Info: [id number] - TSH Performed By: #### L 500.4100, L500.4050, L100.0100, [id number] #### [facility] [address] [place], [place], [id number] Triglyceride [Mass/Vol] 68 mg/dL Normal [facility] Comment on above: Order Comment: Order Date: 12/18/24 Order Info: [id number] - CMP Order Info: - LIPID Order Info: [id number] - TSH Result Comment: The drugs N-Acetylcysteine and Metamizole may falsely depress this assay. Serum Triglycerides Reference Interval Normal <150 mg/dL Borderline high 150 - 199 mg/dL High 200 - 499 mg/dL Very High > or = 500 mg/dL Performed By: #### L 500.4100, L500.4050, L100.0100, L501.9520 #### [facility] [address] [place], [place], [id number] Thyroid Stim Hormone (TSH)on 12-18-2024 TSH 1.410 uIU/mL Normal 0.358-3.740 [facility] Comment on above: Order Comment: Order Date: 12/18/24 Order Info: [id number] - CMP Order Info: [id number] - LIPID Order Info: [id number] - TSH Performed By: #### L 500.4100, L500.4050, L100.0100, [id number] #### [facility] [address] [place], [place], [id number] Laboratory - Microbiology an d Antimicrobial susceptibilityOrdered By: Sergio Ellis on 01-05-2024 SARS-CoV-2 (COVID-19) RNA MICHELLE+probe Ql (Unsp spec) [facility] Basophil percentageOrdered B y: Erwin Huitron on 10-04-2023 Bilirubin [Mass/Vol] 0.30 mg/dL 0.20-1.00 [facility] Comment on above: For patients on eltr ombopag therapy, use of Dimension [place] TBIL is not recommended. Chloride [Moles/Vol] 105 mmol/L 98-107 [facility] Glucose [Mass/Vol] 105 mg/dL 74-106 [facility] Comment on above: Fasting Glucose resu lt from 100 to 125 mg/dL suggests IMPAIRED HOMEOSTASIS per A.D.A. criteria. Potassium [Moles/Vol] 4.3 mmol/L 3.5-5.1 [facility] Protein [Mass/Vol] 7.9 g/dL 6.4-8.2 [facility] Sodium [Moles/Vol] 137 mmol/L 136-145 [facility] [place] Laboratory - Chemistry and C hemistry - challengeOrdered By: Erwin Huitron on 10-04-2023 ALP [Catalytic activity/Vol] 61 U/L 45-117 [facility] ALT [Catalytic activity/Vol] 19 U/L 16-61 [facility] CO2 [Moles/Vol] 28.0 mmol/L 21.0-32.0 [facility] Globulin (S) [Mass/Vol] 4.0 g/dL 2.2-4.2 [facility] Urea nitrogen/Creatinine [Mass ratio] 19.8 mg/mg 10-20 [facility] No Panel InformationOrdered By: Erwin Huitron on 10-04-2023 Estimated Creatinine Clearance Calc 84.53 ml/min [facility] Estimated GFR (MDRD) Amer 102 mL/min >60 [facility] Comment on above: GFR Calc Estimated GFR (MDRD) Non-Af Amer 84 mL/min >60 [facility] Comment on above: Non- GFR Calc Serum or plasma albumin ruperto urement (mass/volume)Ordered By: Erwin Huitron on 10-04-2023 Albumin [Mass/Vol] 3.9 g/dL 3.2-5.0 [facility] Serum or plasma albumin/glob ulin mass ratioOrdered By: Erwin Huitron on 10-04-2023 Albumin/Globulin [Mass ratio] 1.0 {ratio} 0.9-2.4 [facility] Serum or plasma calcium ruperto urement (mass/volume)Ordered By: Erwin Huitron on 10-04-2023 Calcium [Mass/Vol] 9.3 mg/dL 8.5-10.1 [facility] Serum or plasma creatinine m easurement (mass/volume)Ordered By: Erwin Huitron on 10-04-2023 Creatinine [Mass/Vol] 1.01 mg/dL 0.70-1.30 [facility] Comment on above: The validity of the calculated GFR & GFRAA in patients over 70 years has not been determined. Clinical correlation is essential. Serum or plasma urea nitroge n measurement (mass/volume)Ordered By: Erwin Huitron on 10-04-2023 Urea nitrogen [Mass/Vol] 20 mg/dL 7-18 [facility] Thin prep Papanicolaou smear with manual screeningOrdered By: Erwin Huitron on 10-04-2023 Thin prep Papanicolaou smear with manual screening 14 U/L 15-37 [facility] Thin prep Papanicolaou smear with manual screening 4 5-15 [facility] Absolute lymphocyte countOrd ered By: Erwin Huitron on 10-03-2023 Lymphocytes Auto (Unsp spec) [#/Vol] 3.27 10*3/uL 0.83-4.51 [facility] Basophil percentageOrdered B y: Erwin Huitron on 10-03-2023 Basophils/100 WBC (Bld) 0.6 % 0-1 [facility] Eosinophils/100 WBC (Bld) 0.9 % 0-5 [facility] Neutrophils (Bld) [#/Vol] 7.5 10*3/uL 2.0-7.7 [facility] Neutrophils/100 WBC (Bld) 64.7 % 47-70 [facility] WBC (Bld) [#/Vol] 11.6 10*3/uL 4.4-11.0 [facility] Blood erythrocytes count (nu mber/volume)Ordered By: Erwin Huitron on 10-03-2023 RBC (Bld) [#/Vol] 5.29 10*6/uL 4.6-6.2 [facility] Blood hemoglobin measurement (mass/volume)Ordered By: Erwin Huitron on 10-03-2023 Hemoglobin (Bld) [Mass/Vol] 15.0 g/dL 13.0-16.5 [facility] Blood lymphocytes/100 leukoc ytesOrdered By: Erwin Huitron on 10-03-2023 Lymphocytes/100 WBC (Bld) 28.1 % 19-41 [facility] Blood monocytes/100 leukocyt esOrdered By: Erwin Huitron on 10-03-2023 Monocytes/100 WBC (Bld) 5.4 % 0-10 [facility] Blood platelet mean volumeOr dered By: Erwin Huitron on 10-03-2023 Platelet mean volume (Bld) [Entitic vol] 10.3 fL 6.2-12.0 [facility] Determination of erythrocyte mean corpuscular volume (MCV)Ordered By: Erwin Huitron on 10-03-2023 MCV (RBC) [Entitic vol] 84.1 fL 80-94 [facility] Hematocrit Auto (Bld) [Volum e fraction]Ordered By: Erwin Huitron on 10-03-2023 Hematocrit (Bld) [Volume fraction] 44.5 % 40-54 [facility] - Hematology and Cell countsOrdered By: Erwin Huitron on 10-03-2023 Erythrocyte distribution width (RBC) [Entitic vol] 38.6 fL 35.1-43.9 [facility] Erythrocyte distribution width (RBC) [Ratio] 12.7 % 11.6-14.6 [facility] Immature granulocytes/100 WBC (Bld) 0.300 % 0.0-0.9 [facility] Comment on above: IG% - Immature Granu locytes (promyelocytes, myelocytes and metamyelocytes) > 1% indicates that a LEFT SHIFT is Present. MCH (RBC) [Entitic mass] 28.4 pg 27.0-32.0 [facility] Nucleated RBC/100 WBC (Bld) [Ratio] 0 % 0-5 [facility] MCHC Auto (RBC) [Mass/Vol]Or dered By: Erwin Huitron on 10-03-2023 MCHC (RBC) [Mass/Vol] 33.7 g/dL 32-36 [facility] Platelets bldOrdered By: Dereck Huitron on 10-03-2023 Platelets (Bld) [#/Vol] 278 10*3/uL 150-450 [facility] Absolute lymphocyte countOrd ered By: Aida Mendoza on 04-19-2023 Lymphocytes Auto (Unsp spec) [#/Vol] 1.91 10*3/uL 0.83-4.51 [facility] Basophil percentageOrdered B y: Aida Mendoza on 04-19-2023 Basophils/100 WBC (Bld) 0.7 % 0-1 [facility] Bilirubin [Mass/Vol] 0.30 mg/dL 0.20-1.00 [facility] Comment on above: For patients on eltr ombopag therapy, use of Dim[employer] [place] TBIL is not recommended. Chloride [Moles/Vol] 109 mmol/L 98-107 [facility] Eosinophils/100 WBC (Bld) 1.9 % 0-5 [facility] Glucose [Mass/Vol] 128 mg/dL 74-106 [facility] [place] Comment on above: Fasting Glucose resu lt greater than or equal to 126 mg/dL suggests DIABETES MELLITUS per A.D.A. criteria. Neutrophils (Bld) [#/Vol] 4.7 10*3/uL 2.0-7.7 [facility] Neutrophils/100 WBC (Bld) 65.2 % 47-70 [facility] Potassium [Moles/Vol] 4.2 mmol/L 3.5-5.1 [facility] Comment on above: Slight Hemolysis, Re sult may be falsely increased. Protein [Mass/Vol] 7.7 g/dL 6.4-8.2 [facility] [place] Sodium [Moles/Vol] 142 mmol/L 136-145 [facility] WBC (Bld) [#/Vol] 7.3 10*3/uL 4.4-11.0 [facility] Blood erythrocytes count (nu mber/volume)Ordered By: Aida Mendoza on 04-19-2023 RBC (Bld) [#/Vol] 4.83 10*6/uL 4.6-6.2 [facility] Blood hemoglobin measurement (mass/volume)Ordered By: Aida Mendoza on 04-19-2023 Hemoglobin (Bld) [Mass/Vol] 13.9 g/dL 13.0-16.5 [facility] Blood lymphocytes/100 leukoc ytesOrdered By: Aida Mendoza on 04-19-2023 Lymphocytes/100 WBC (Bld) 26.2 % 19-41 [facility] Blood monocytes/100 leukocyt esOrdered By: Aida Mendoza on 04-19-2023 Monocytes/100 WBC (Bld) 5.6 % 0-10 [facility] Blood platelet mean volumeOr dered By: Aida Mendoza on 04-19-2023 Platelet mean volume (Bld) [Entitic vol] 10.0 fL 6.2-12.0 [facility] Determination of erythrocyte mean corpuscular volume (MCV)Ordered By: Aida Mendoza on 04-19-2023 MCV (RBC) [Entitic vol] 86.5 fL 80-94 [facility] Hematocrit Auto (Bld) [Volum e fraction]Ordered By: Aida Mendoza on 04-19-2023 Hematocrit (Bld) [Volume fraction] 41.8 % 40-54 [facility] - Chemistry and C hemistry - challengeOrdered By: Aida Mendoza on 04-19-2023 ALP [Catalytic activity/Vol] 69 U/L 45-117 [facility] ALT [Catalytic activity/Vol] 17 U/L 16-61 [facility] CO2 [Moles/Vol] 25.0 mmol/L 21.0-32.0 [facility] Globulin (S) [Mass/Vol] 4.1 g/dL 2.2-4.2 [facility] Lipase [Catalytic activity/Vol] 27 U/L 13-75 [facility] Comment on above: Please note:LIPASE r evised reference range effective 23. New Lipase methodology. Expected to produce lower values than the previous assay method. NEW Reference Range: 13 - 75 U/L Urea nitrogen/Creatinine [Mass ratio] 19.0 mg/mg 10-20 [facility] - Hematology and Cell countsOrdered By: Aida Mendoza on 04-19-2023 Erythrocyte distribution width (RBC) [Entitic vol] 40.7 fL 35.1-43.9 [facility] Erythrocyte distribution width (RBC) [Ratio] 13.1 % 11.6-14.6 [facility] Immature granulocytes/100 WBC (Bld) 0.400 % 0.0-0.9 [facility] Comment on above: IG% - Immature Granu locytes (promyelocytes, myelocytes and metamyelocytes) > 1% indicates that a LEFT SHIFT is Present. MCH (RBC) [Entitic mass] 28.8 pg 27.0-32.0 [facility] Nucleated RBC/100 WBC (Bld) [Ratio] 0 % 0-5 [facility] MCHC Auto (RBC) [Mass/Vol]Or dered By: Aida Mendoza on 04-19-2023 MCHC (RBC) [Mass/Vol] 33.3 g/dL 32-36 [facility] No Panel InformationOrdered By: Aida Mendoza on 04-19-2023 Estimated Creatinine Clearance Calc 90.84 ml/min [facility] Estimated GFR (MDRD) Amer 110 mL/min >60 [facility] Comment on above: GFR Calc Estimated GFR (MDRD) Non-Af Amer 91 mL/min >60 [facility] Comment on above: Non- GFR Calc Platelets bldOrdered By: Cash Mendoza on 04-19-2023 Platelets (Bld) [#/Vol] 254 10*3/uL 150-450 [facility] Serum or plasma albumin ruperto urement (mass/volume)Ordered By: Aida Mendoza on 04-19-2023 Albumin [Mass/Vol] 3.6 g/dL 3.2-5.0 [facility] Serum or plasma albumin/glob ulin mass ratioOrdered By: Aida Mendoza on 04-19-2023 Albumin/Globulin [Mass ratio] 0.9 {ratio} 0.9-2.4 [facility] Serum or plasma calcium ruperto urement (mass/volume)Ordered By: Aida Mendoza on 04-19-2023 Calcium [Mass/Vol] 9.3 mg/dL 8.5-10.1 [facility] Serum or plasma creatinine m easurement (mass/volume)Ordered By: Aida Mendoza on 04-19-2023 Creatinine [Mass/Vol] 0.95 mg/dL 0.70-1.30 [facility] Comment on above: The validity of the calculated GFR & GFRAA in patients over 70 years has not been determined. Clinical correlation is essential. Serum or plasma urea nitroge n measurement (mass/volume)Ordered By: Aida Mendoza on 04-19-2023 Urea nitrogen [Mass/Vol] 18 mg/dL 7-18 [facility] Thin prep Papanicolaou smear with manual screeningOrdered By: Aida Mendoza on 04-19-2023 Thin prep Papanicolaou smear with manual screening 16 U/L 15-37 [facility] Comment on above: Slight Hemolysis, Re sult may be falsely increased. Thin prep Papanicolaou smear with manual screening 8 5-15 [facility] Absolute lymphocyte countOrd ered By: ED PROVIDER on 02-20-2023 Lymphocytes Auto (Unsp spec) [#/Vol] 3.08 10*3/uL 0.83-4.51 [facility] Basophil percentageOrdered B y: ED PROVIDER on 02-20-2023 Basophils/100 WBC (Bld) 0.6 % 0-1 [facility] Bilirubin [Mass/Vol] 0.40 mg/dL 0.20-1.00 [facility] Comment on above: For patients on eltr ombopag therapy, use of Dim[place] TBIL is not recommended. Chloride [Moles/Vol] 109 mmol/L 98-107 [facility] Eosinophils/100 WBC (Bld) 0.8 % 0-5 [facility] Glucose [Mass/Vol] 109 mg/dL 74-106 [facility] [place] Comment on above: Fasting Glucose resu lt from 100 to 125 mg/dL suggests IMPAIRED HOMEOSTASIS per A.D.A. criteria. Neutrophils (Bld) [#/Vol] 6.0 10*3/uL 2.0-7.7 [facility] Neutrophils/100 WBC (Bld) 62.2 % 47-70 [facility] Potassium [Moles/Vol] 4.6 mmol/L 3.5-5.1 [facility] Protein [Mass/Vol] 7.9 g/dL 6.4-8.2 [facility] Sodium [Moles/Vol] 139 mmol/L 136-145 [facility] WBC (Bld) [#/Vol] 9.6 10*3/uL 4.4-11.0 [facility] Blood erythrocytes count (nu mber/volume)Ordered By: ED PROVIDER on 02-20-2023 RBC (Bld) [#/Vol] 4.87 10*6/uL 4.6-6.2 [facility] Blood hemoglobin measurement (mass/volume)Ordered By: ED PROVIDER on 02-20-2023 Hemoglobin (Bld) [Mass/Vol] 14.1 g/dL 13.0-16.5 [facility] Blood lymphocytes/100 leukoc ytesOrdered By: ED PROVIDER on 02-20-2023 Lymphocytes/100 WBC (Bld) 32.0 % 19-41 [facility] Blood monocytes/100 leukocyt esOrdered By: ED PROVIDER on 02-20-2023 Monocytes/100 WBC (Bld) 4.2 % 0-10 [facility] Blood platelet mean volumeOr dered By: ED PROVIDER on 02-20-2023 Platelet mean volume (Bld) [Entitic vol] 9.3 fL 6.2-12.0 [facility] Determination of erythrocyte mean corpuscular volume (MCV)Ordered By: ED PROVIDER on 02-20-2023 MCV (RBC) [Entitic vol] 86.9 fL 80-94 [facility] Hematocrit Auto (Bld) [Volum e fraction]Ordered By: ED PROVIDER on 02-20-2023 Hematocrit (Bld) [Volume fraction] 42.3 % 40-54 [facility] - Chemistry and C hemistry - challengeOrdered By: ED PROVIDER on 02-20-2023 ALP [Catalytic activity/Vol] 64 U/L 45-117 [facility] ALT [Catalytic activity/Vol] 23 U/L 16-61 [facility] CO2 [Moles/Vol] 27.0 mmol/L 21.0-32.0 [facility] Globulin (S) [Mass/Vol] 4.1 g/dL 2.2-4.2 [facility] Urea nitrogen/Creatinine [Mass ratio] 14.4 mg/mg 10-20 [facility] - Chemistry and C hemistry - challengeOrdered By: Dr. Richmond on 02-20-2023 Lipase [Catalytic activity/Vol] 29 U/L 13-75 [facility] Comment on above: Please note:LIPASE r evised reference range effective 23. New Lipase methodology. Expected to produce lower values than the previous assay method. NEW Reference Range: 13 - 75 U/L Laboratory - Hematology and Cell countsOrdered By: ED PROVIDER on 02-20-2023 Erythrocyte distribution width (RBC) [Entitic vol] 41.7 fL 35.1-43.9 [facility] Erythrocyte distribution width (RBC) [Ratio] 13.2 % 11.6-14.6 [facility] Immature granulocytes/100 WBC (Bld) 0.200 % 0.0-0.9 [facility] Comment on above: IG% - Immature Granu locytes (promyelocytes, myelocytes and metamyelocytes) > 1% indicates that a LEFT SHIFT is Present. MCH (RBC) [Entitic mass] 29.0 pg 27.0-32.0 [facility] Nucleated RBC/100 WBC (Bld) [Ratio] 0 % 0-5 [facility] MCHC Auto (RBC) [Mass/Vol]Or dered By: ED PROVIDER on 02-20-2023 MCHC (RBC) [Mass/Vol] 33.3 g/dL 32-36 [facility] No Panel InformationOrdered By: ED PROVIDER on 02-20-2023 Estimated Creatinine Clearance Calc 73.13 ml/min [facility] Estimated GFR (MDRD) Amer 85 mL/min >60 [facility] Comment on above: GFR Calc Estimated GFR (MDRD) Non-Af Amer 70 mL/min >60 [facility] Comment on above: Non- GFR Calc Platelets bldOrdered By: ED PROVIDER on 02-20-2023 Platelets (Bld) [#/Vol] 263 10*3/uL 150-450 [facility] Serum or plasma albumin ruperto urement (mass/volume)Ordered By: ED PROVIDER on 02-20-2023 Albumin [Mass/Vol] 3.8 g/dL 3.2-5.0 [facility] Serum or plasma albumin/glob ulin mass ratioOrdered By: ED PROVIDER on 02-20-2023 Albumin/Globulin [Mass ratio] 0.9 {ratio} 0.9-2.4 [facility] Serum or plasma calcium ruperto urement (mass/volume)Ordered By: ED PROVIDER on 02-20-2023 Calcium [Mass/Vol] 9.6 mg/dL 8.5-10.1 [facility] Serum or plasma creatinine m easurement (mass/volume)Ordered By: ED PROVIDER on 02-20-2023 Creatinine [Mass/Vol] 1.18 mg/dL 0.70-1.30 [facility] Comment on above: The validity of the calculated GFR & GFRAA in patients over 70 years has not been determined. Clinical correlation is essential. Serum or plasma urea nitroge n measurement (mass/volume)Ordered By: ED PROVIDER on 02-20-2023 Urea nitrogen [Mass/Vol] 17 mg/dL 7-18 [facility] Thin prep Papanicolaou smear with manual screeningOrdered By: ED PROVIDER on 02-20-2023 Thin prep Papanicolaou smear with manual screening 19 U/L 15-37 [facility] Thin prep Papanicolaou smear with manual screening 3 5-15 [facility] Absolute lymphocyte countOrd ered By: Ame Fenton on 12-12-2022 Lymphocytes Auto (Unsp spec) [#/Vol] 2.86 10*3/uL 0.83-4.51 [facility] Basophil percentageOrdered B y: Ame Fenton on 12-12-2022 Basophils/100 WBC (Bld) 0.8 % 0-1 [facility] Bilirubin [Mass/Vol] 0.30 mg/dL 0.20-1.00 [facility] Comment on above: For patients on eltr ombopag therapy, use of Dimension [place] TBIL is not recommended. Chloride [Moles/Vol] 106 mmol/L 98-107 [facility] Cholesterol [Mass/Vol] 195 mg/dL <200 [facility] Comment on above: <200 mg/dL Desirable 200-240 mg/dL Borderline >240 mg/dL High Risk Eosinophils/100 WBC (Bld) 3.7 % 0-5 [facility] Glucose [Mass/Vol] 111 mg/dL 74-106 [facility] Comment on above: Fasting Glucose resu lt from 100 to 125 mg/dL suggests IMPAIRED HOMEOSTASIS per A.D.A. criteria. Neutrophils (Bld) [#/Vol] 3.5 10*3/uL 2.0-7.7 [facility] Neutrophils/100 WBC (Bld) 47.5 % 47-70 [facility] Potassium [Moles/Vol] 3.8 mmol/L 3.5-5.1 [facility] Protein [Mass/Vol] 7.9 g/dL 6.4-8.2 [facility] Sodium [Moles/Vol] 138 mmol/L 136-145 [facility] Triglyceride [Mass/Vol] 185 mg/dL <199 [facility] Comment on above: The drugs N-Acetylcy steine and Metamizole may falsely depress this assay.Serum Triglycerides Reference Interval Normal <150 mg/dL Borderline high 150 - 199 mg/dL High 200 - 499 mg/dL Very High > or = 500 mg/dL WBC (Bld) [#/Vol] 7.3 10*3/uL 4.4-11.0 [facility] [place] Blood erythrocytes count (nu mber/volume)Ordered By: Ame Fenton on 12-12-2022 RBC (Bld) [#/Vol] 4.90 10*6/uL 4.6-6.2 [facility] Blood hemoglobin measurement (mass/volume)Ordered By: Ame Fenton on 12-12-2022 Hemoglobin (Bld) [Mass/Vol] 14.1 g/dL 13.0-16.5 [facility] Blood lymphocytes/100 leukoc ytesOrdered By: Ame Fenton on 12-12-2022 Lymphocytes/100 WBC (Bld) 39.3 % 19-41 [facility] Blood monocytes/100 leukocyt esOrdered By: Ame Fenton on 12-12-2022 Monocytes/100 WBC (Bld) 8.1 % 0-10 [facility] Blood platelet mean volumeOr dered By: Ame Fenton on 12-12-2022 Platelet mean volume (Bld) [Entitic vol] 9.9 fL 6.2-12.0 [facility] Determination of erythrocyte mean corpuscular volume (MCV)Ordered By: Ame Fenton on 12-12-2022 MCV (RBC) [Entitic vol] 89.6 fL 80-94 [facility] Hematocrit Auto (Bld) [Volum e fraction]Ordered By: Ame Fenton on 12-12-2022 Hematocrit (Bld) [Volume fraction] 43.9 % 40-54 [facility] - Chemistry and C hemistry - challengeOrdered By: Ame Fenton on 12-12-2022 ALP [Catalytic activity/Vol] 55 U/L 45-117 [facility] ALT [Catalytic activity/Vol] 18 U/L 16-61 [facility] CO2 [Moles/Vol] 25.0 mmol/L 21.0-32.0 [facility] Globulin (S) [Mass/Vol] 4.4 g/dL 2.2-4.2 [facility] Urea nitrogen/Creatinine [Mass ratio] 30.3 mg/mg 10-20 [facility] - Hematology and Cell countsOrdered By: Ame Fenton on 12-12-2022 Erythrocyte distribution width (RBC) [Entitic vol] 41.6 fL 35.1-43.9 [facility] Erythrocyte distribution width (RBC) [Ratio] 12.8 % 11.6-14.6 [facility] Immature granulocytes/100 WBC (Bld) 0.600 % 0.0-0.9 [facility] Comment on above: IG% - Immature Granu locytes (promyelocytes, myelocytes and metamyelocytes) > 1% indicates that a LEFT SHIFT is Present. MCH (RBC) [Entitic mass] 28.8 pg 27.0-32.0 [facility] Nucleated RBC/100 WBC (Bld) [Ratio] 0 % 0-5 [facility] MCHC Auto (RBC) [Mass/Vol]Or dered By: Ame Fenton on 12-12-2022 MCHC (RBC) [Mass/Vol] 32.1 g/dL 32-36 [facility] No Panel InformationOrdered By: Ame Fenton on 12-12-2022 Estimated GFR (MDRD) Amer 135 mL/min >60 [facility] Comment on above: GFR Calc Estimated GFR (MDRD) Non-Af Amer 112 mL/min >60 [facility] Comment on above: Non- GFR Calc Thyroid Stimulating Hormone (TSH) 2.44 uIU/mL 0.358-3.74 [facility] Platelets bldOrdered By: Omar Fenton on 12-12-2022 Platelets (Bld) [#/Vol] 273 10*3/uL 150-450 [facility] Serum or plasma albumin ruperto urement (mass/volume)Ordered By: Ame Fenton on 12-12-2022 Albumin [Mass/Vol] 3.5 g/dL 3.2-5.0 [facility] Serum or plasma albumin/glob ulin mass ratioOrdered By: Ame Fenton on 12-12-2022 Albumin/Globulin [Mass ratio] 0.8 {ratio} 0.9-2.4 [facility] Serum or plasma calcium ruperto urement (mass/volume)Ordered By: Ame Fenton on 12-12-2022 Calcium [Mass/Vol] 9.3 mg/dL 8.5-10.1 [facility] Serum or plasma cholesterol in HDL measurement (mass/volume)Ordered By: Ame Fenton on 12-12-2022 Cholesterol in HDL [Mass/Vol] 33 mg/dL >40 [facility] Comment on above: The drugs N-Acetylcy steine and Metamizole may falsely depress this assay. Reference Range HDL <40 mg/dL Low HDL Cholesterol HDL >or= 60 mg/dL High HDL Cholesterol Serum or plasma cholesterol in VLDL measurement (mass/volume)Ordered By: Ame Fenton on 12-12-2022 Cholesterol in VLDL [Mass/Vol] 37 mg/dL 5-40 [facility] Serum or plasma creatinine m easurement (mass/volume)Ordered By: Ame Fenton on 12-12-2022 Creatinine [Mass/Vol] 0.79 mg/dL 0.70-1.30 [facility] Comment on above: The validity of the calculated GFR & GFRAA in patients over 70 years has not been determined. Clinical correlation is essential. Serum or plasma low density lipoprotein (LDL) cholesterol measurement (mass/volume)Ordered By: Ame Fenton on 12-12-2022 Cholesterol in LDL [Mass/Vol] 125 mg/dL 0-130 [facility] Serum or plasma urea nitroge n measurement (mass/volume)Ordered By: Ame Fenton on 12-12-2022 Urea nitrogen [Mass/Vol] 24 mg/dL 7-18 [facility] Thin prep Papanicolaou smear with manual screeningOrdered By: Ame Fenton on 12-12-2022 Thin prep Papanicolaou smear with manual screening 13 U/L 15-37 [facility] Thin prep Papanicolaou smear with manual screening 7 5-15 [facility] Influenza virus A and B and SARS-CoV-2 (COVID-19) Ag panel - Upper respiratory specimOrdered By: Dr. Harris on 11-15-2022 SARS-CoV-2 (COVID-19) RNA MICHELLE+probe Ql (Resp) [facility] CNOVon 12-13-2021 CNOV Office Visit (UCWSTR) ---- MERRITT DUTTON ([id number]) 1975 M Date Time Provider Department 12/13/21 5:45 PM ETHEL NGUYEN [facility] During your visit today, we recorded the following information about you: Temperature Pulse Respiration Blood pressure 98 degrees 84/minute 16/minute 146/86 Weight 110.8 kg Ethel Nguyen PA-C 12/13/2021 6:36 PM Signed This note was created using MyEveTabriter. Subjective Merritt Dutton is a 46 year old male. [...] 12/13/2021 ) 21 tablet 0 No current facility-administer ed medications for this visit. PAST SURGICAL HISTORY [...] able to fully evaluate this here at express care. Recommended he be seen in the ED. Dad will take him to [facility] ed. Ethel Nguyen PA-C Referring Provider: SELF [200] Allergies As of Date: 12/13/2021 Noted Allergy Reaction PENICILLINS 03/01/2008 4 - Hives Date Reviewed: 12/13/2021 Reviewed by: Aylin Serrato LPN - Fully Assessed Reason for Visit: Chest Congestion [236] Cmt: chest hurts from COVID Primary Visit Diagnosis:Chest pain, unspecified type [R07.9] Prescriptions as of 12/13/2021 - predniSONE (DELTASONE) 10 mg tablet Take 4 tabs daily for 3 days, then 2 tabs daily for 3 days, then 1 tab daily for 3 days with food. Problem List As Of Date 12/13/2021 Noted Resolved TOBACCO USE DISORDER [F17.200] 03/01/2008 PNEUMONIA, ORGANISM NOS [J18.9] 03/01/2008 MILD COGNITIVE IMPAIREMT [G31.84] 03/01/2008 PERS HX PENICILLIN ALLERGY [Z88.0] 03/01/2008 FAM HX-CARDIOVAS DIS NEC [Z82.49] 03/01/2008 FOREIGN BODY SHOULDR/ARM [S40.259A, S40.859A] 04/26/2008 Encounter Status:Closed by ETHEL NGUYEN on 12/13/21 [facility] 11-19-2021 [facility] Telephone (UCTR) ---- MERRITT DUTTON ([id number]) 1975 M Date Time Provider Department 11/19/21 HARRIET TURNER [facility] During your visit today, we recorded the following information about you: Harriet Turner APRN.CIGARETTE VENDOR 11/19/2021 6:55 PM Signed Attempted to call patient - all numbers in chart do not work Letter generated for + covid, please send to patient. Your covid test is positive. Follow the CDC guidelines for isolation: 1. Everyone, regardless of vaccination status, should stay home for 5 days. 2. If you have no symptoms or your symptoms are resolving after 5 days, you can leave your house. 3. Continue to wear a mask around others for 5 additional days. If you have a fever, continue to stay home until your fever resolves, even if it is longer than 5 days. Please monitor your symptoms, and for any worrisome symptoms. Continue comfort measures for symptoms as you would for a cold. Any worsening symptoms follow up with PCP or ER. Harriet Turner APRN.ELIE Deng 11/20/2021 7:36 PM Signed Patient given results and verbalized understanding of instructions given. Rex Deng Allergies As of Date: 11/19/2021 Noted Allergy Reaction PENICILLINS 03/01/2008 4 - Hives Date Reviewed: 11/18/2021 Reviewed by: Tonia Conteh Ma - Fully Assessed Reason for Visit: Results [95] Cmt: + covid Prescriptions as of 11/20/2021 - doxycycline (VIBRA-TABS) 100 mg tablet Take 1 tablet by mouth twice daily for 10 days. - predniSONE (DELTASONE) 10 mg tablet Take 4 tabs daily for 3 days, then 2 tabs daily for 3 days, then 1 tab daily for 3 days with food. Problem List As Of Date 11/19/2021 Noted Resolved TOBACCO USE DISORDER [F17.200] 03/01/2008 PNEUMONIA, ORGANISM NOS [J18.9] 03/01/2008 MILD COGNITIVE IMPAIREMT [G31.84] 03/01/2008 PERS HX PENICILLIN ALLERGY [Z88.0] 03/01/2008 FAM HX-CARDIOVAS DIS NEC [Z82.49] 03/01/2008 FOREIGN BODY SHOULDR/ARM [S40.952A, S40.859A] 04/26/2008 Letter Text Encounter Status:Closed by REX DENG on 11/20/21 [facility] CNOVon 11-18-2021 CNOV Office Visit (UCWSTR) ---- MERRITT DUTTON ([id number]) 1975 M Date Time Provider Department 11/18/21 1:30 PM CHANTE MORA During your visit today, we recorded the following information about you: Temperature Pulse Blood pressure Weight 97.2 degrees 79/minute 178/102 108.9 kg Chante Mora APRN.CNP 11/18/2021 2:00 PM Signed This note was created using MyEveTabriter. Subjective Merritt Dutton is a 46 year old male. [...] history is provided by the patient. 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 URI He complains of cough. [...] for color change, pallor, rash and wound. Allergic/Immunologi c: Negative for environmental allergies, food allergies and immunocompromised state. Neurological: Negative for headaches. Hematological: Negative for adenopathy. Does not bruise/bleed easily. Psychiatric/Behavio ral: Negative for agitation and behavioral problems. Objective [...] discharge. Left eye: No discharge. Extraocular Movements: Extraocu (more content not included)... Normal [facility] COVID w FLU A+B [place] 11-18 Influenza A PCR Negative Normal [facility] Comment on above: Performed By: #### C OVFLU #### [place] [address] Influenza B PCR Negative Normal [facility] Comment on above: Performed By: #### C OVFLU #### [place] [address] SARS-CoV-2 (COVID-19) RNA MICHELLE+probe Ql (Unsp spec) UPPER RESPIRATORY TRACT SWAB Normal [facility] Comment on above: Performed By: #### C OVFLU #### [place] [address] SARS-CoV-2 (COVID-19) RNA MICHELLE+probe Ql (Unsp spec) Positive for COVID19 (SARS CoV2) by RT-PCR or equivalent method. Critically abnormal Negative for COVID19 (SARS CoV2) by RT-PCR or equivalent method. [facility] Comment on above: Result Comment: This test was developed and its performance characteristics determined by [facility] [place]. This test has been authorized by FDA under an Emergency Use Authorization (EUA). This test has been validated in accordance with the FDA's Guidance Document Policy for Diagnostics Testing in Laboratories Certified to Perform High Complexity Testing under CLIA prior to Emergency use Authorization for Coronavirus Disease 2019 during the Public Health Emergency issued on January 02, 2020. Test performed by [facility], [facility] [place], [address] [place] [address]. Performed By: #### C OVFLU #### [facility] [address] [place] [id number] Influenza virus A and B and SARS-CoV-2 (COVID-19) Ag panel - Upper respiratory specim SARS-CoV-2 (COVID-19) RNA MICHELLE+probe Ql (Resp) [facility] Work Phone: Vital Signs Date Time Vital Sign Value Performing Clinician Faci lity 06-30-2025 15:38-0400 Body temperature 97 [degF] Ole Thompson MD Work Phone: [facility] 06-30-2025 15:38-0400 Diastolic blood pressure 85 mm[Hg] Ole Thompson MD Work Phone: [facility] 06-30-2025 15:38-0400 Heart rate 61 /min Ole Thompson MD Work Phone: [facility] 06-30-2025 15:38-0400 Respiratory rate 16 /min Ole Thompson MD Work Phone: [facility] 06-30-2025 15:38-0400 SaO2% (BldA) [Mass fraction] 97 % Ole Thompson MD Work Phone: [facility] 06-30-2025 15:38-0400 Systolic blood pressure 124 mm[Hg] Ole Thompson MD Work Phone: [facility] 06-30-2025 13:08-0400 Body height 172.72 cm Ole Thompson MD Work Phone: [facility] 06-30-2025 13:08-0400 Body mass index (BMI) [Ratio] 34.2 kg/m2 Ole Thompson MD Work Phone: [facility] 06-30-2025 13:08-0400 Body weight 102 kg Ole Thompson MD Work Phone: [facility] 01-05-2024 23:42-0500 Heart rate 88 /min [facility] 01-05-2024 23:42-0500 Respiratory rate 20 /min [facility] 01-05-2024 23:19-0500 Body height 170.18 cm [facility] 01-05-2024 23:19-0500 Body mass index (BMI) [Ratio] 39.4 kg/m2 [facility] 01-05-2024 23:19-0500 Body temperature 97 [degF] [facility] 01-05-2024 23:19-0500 Body weight 114.16 kg [facility] 01-05-2024 23:19-0500 Diastolic blood pressure 105 mm[Hg] [facility] 01-05-2024 23:19-0500 SaO2% (BldA) [Mass fraction] 97 % [facility] 01-05-2024 23:19-0500 Systolic blood pressure 174 mm[Hg] [facility] 11-19-2023 18:51-0500 Body height 170.18 cm [facility] 11-19-2023 18:51-0500 Body mass index (BMI) [Ratio] 40.2 kg/m2 [facility] 11-19-2023 18:51-0500 Body temperature 96.9 [degF] [facility] 11-19-2023 18:51-0500 Body weight 116.48 kg [facility] 11-19-2023 18:51-0500 Diastolic blood pressure 115 mm[Hg] [facility] 11-19-2023 18:51-0500 Heart rate 104 /min [facility] 11-19-2023 18:51-0500 Respiratory rate 18 /min [facility] 11-19-2023 18:51-0500 SaO2% (BldA) [Mass fraction] 97 % [facility] 11-19-2023 18:51-0500 Systolic blood pressure 160 mm[Hg] [facility] 10-04-2023 01:22-0500 Diastolic blood pressure 75 mm[Hg] [facility] 10-04-2023 01:22-0500 Heart rate 89 /min [facility] 10-04-2023 01:22-0500 Respiratory rate 18 /min [facility] 10-04-2023 01:22-0500 Systolic blood pressure 136 mm[Hg] [facility] 10-03-2023 22:33-0500 Body height 170.18 cm [facility] 10-03-2023 22:33-0500 Body mass index (BMI) [Ratio] 38.8 kg/m2 [facility] 10-03-2023 22:33-0500 Body temperature 98.2 [degF] [facility] 10-03-2023 22:33-0500 Body weight 112.6 kg [facility] 10-03-2023 22:33-0500 SaO2% (BldA) [Mass fraction] 98 % [facility] 04-19-2023 12:52-0400 Diastolic blood pressure 98 mm[Hg] [facility] 04-19-2023 12:52-0400 Heart rate 71 /min [facility] 04-19-2023 12:52-0400 Respiratory rate 18 /min [facility] 04-19-2023 12:52-0400 SaO2% (BldA) [Mass fraction] 96 % [facility] 04-19-2023 12:52-0400 Systolic blood pressure 131 mm[Hg] [facility] 04-19-2023 11:11-0400 Body height 170.18 cm [facility] 04-19-2023 11:11-0400 Body mass index (BMI) [Ratio] 38 kg/m2 [facility] 04-19-2023 11:11-0400 Body temperature 98.1 [degF] [facility] 04-19-2023 11:11-0400 Body weight 110.17 kg [facility] 02-21-2023 00:31-0400 Diastolic blood pressure 118 mm[Hg] [facility] 02-21-2023 00:31-0400 Heart rate 77 /min [facility] 02-21-2023 00:31-0400 Respiratory rate 17 /min [facility] 02-21-2023 00:31-0400 SaO2% (BldA) [Mass fraction] 97 % [facility] 02-21-2023 00:31-0400 Systolic blood pressure 157 mm[Hg] [facility] 02-20-2023 21:34-0400 Body mass index (BMI) [Ratio] 40.2 kg/m2 [facility] 02-20-2023 21:34-0400 Body temperature 97 [degF] [facility] 02-20-2023 21:34-0400 Body weight 116.57 kg [facility] 11-15-2022 23:31-0500 Diastolic blood pressure 100 mm[Hg] [facility] 11-15-2022 23:31-0500 Heart rate 85 /min [facility] 11-15-2022 23:31-0500 Respiratory rate 18 /min [facility] 11-15-2022 23:31-0500 SaO2% (BldA) [Mass fraction] 94 % [facility] 11-15-2022 23:31-0500 Systolic blood pressure 163 mm[Hg] [facility] 11-15-2022 21:37-0500 Body height 167.64 cm [facility] 11-15-2022 21:37-0500 Body mass index (BMI) [Ratio] 33.5 kg/m2 [facility] 11-15-2022 21:37-0500 Body temperature 98.2 [degF] [facility] 11-15-2022 21:37-0500 Body weight 94.34 kg [facility] Encounters Encounter Date Encounter Type Care Provider Facility Start: 06-30-2025 Non-patient / Non-visit Tommy [facility] Start: 06-30-2025 ambulatory Ole Thompson Facility:[facility] Start: 06-30-2025 End: 06-30-2025 Admission to same day surgery center Tommy Pitts DO -Endoscopy Work Phone: Start: 06-30-2025 End: 06-30-2025 ambulatory Ole Thompson MD Work Phone: -Endoscopy Start: 05-28-2025 End: 05-28-2025 Patient encounter procedure Shania ROCHE [facility] Work Phone: Start: 05-28-2025 End: 05-28-2025 ambulatory Ole Thompson MD Work Phone: [facility] Start: 12-18-2024 End: 12-18-2024 ambulatory Ole Thompson Facility:[facility] Start: 01-05-2024 End: 01-06-2024 [facility] Start: 12-04-2023 End: 12-04-2023 ambulatory [facility] Work Phone: Start: 12-04-2023 End: 12-04-2023 Patient encounter procedure [facility] Work Phone: Start: 11-19-2023 End: 11-19-2023 [facility] Start: 10-03-2023 End: 10-04-2023 [facility] Start: 04-19-2023 End: 04-19-2023 Emergency department patient visit [facility] Start: 02-20-2023 End: 02-21-2023 Emergency department patient visit [facility] Start: 12-12-2022 End: 12[facility] [facility] Work [facility] Start: 12-12-2022 End: 12-12-2022 [facility] Start: 11-15-2022 End: 11-15-2022 Emergency department patient visit [facility] Procedures Date Procedure Procedure Detail Performing Clinician Start: 06-30-2025 Colonoscopy Ole juarez MD Work Phone: Start: 01-06-2024 Plain chest X-ray Start: 01-05-2024 SARS-CoV-2, Influenz a & RSV (PCR) Start: 12-04-2023 End: 12-04-2023 X-ray of both feet Start: 11-19-2023 Diagnostic radiograp hy of finger Start: 11-15-2022 Plain chest X-ray SARS-CoV-2 & FLU Ant igen (Rapid) SARS-CoV-2 & FLU Ant igen (Rapid) Plan of Treatment Date Care Activity Detail Author Start: 06-30-2025 Patient discharge [facility] Start: 01-06-2024 [facility] Start: 11-19-2023 [facility] Start: 10-04-2023 [facility] Start: 11-15-2022 [facility] Patient Education [facility] Work Phone: Patient referral [facility] Work Phone: Immunizations Immunization Date Immunization Notes Care Provider Fa cility 11-19-2023 tetanus toxoid, redu qian diphtheria toxoid, and acellular pertussis vaccine, adsorbed [facility] Payers Date Payer Category Payer Medicaid [id number] 2024 Medicare [id number] 2024 Self-pay [id number] Unknown [id number] Unknown [id number] Unknown [id number] Social History Date Type Detail Facility Start: 11-15-2022 End: 01-06-2024 Tobacco smoking status NHIS Unknown if ever smoked [facility] Start: 1975 Sex Assigned At Male [facility] Start: 01-06-2024 End: 06-28-2025 Tobacco smoking status NHIS Smokes tobacco daily (finding) [facility] Goals Date Patient Goal Desired Activity /State Mental Status Date Assessment Result Facility 06-30-2025 Cognitive function Voice/Name [facility] Work Phone: Clinical Notes 11-18-2021 to 06-30-2025 Note Date & Type Note Facility 06-30-2025 Consult note [facility] 06-30-2025 Consult note Note Date/Time June 30, 2025 1:31pm [facility] Medical Records Department [address] [place] [address] Pre-Anesthesia Evaluation 06/30/25 1330 MR#: [id number] Acct: [id number] Name: MERRITT DUTTON II Rep #:[id number] : 1975 49 From: Bharathi Henriquez MD PCP: Dr. Ole Thompson MD Status:REG SD C Y Race: C Location: [place] [address] ASA Classification* ASA Classification ASA Classification: 2 Assessment & Plan Anesthesia* Anesthesia Assessment Anesthesia Assessment: Discussed sedation and/or anesthesia options, risks, benefits, and alternatives with patient/parents/legal guardian/POA. Questions invited. The patient/parents/legal guardian/POA seems to understand and agrees to proceedwith anesthesia plan. Reviewed the physical assessment, medical history, allergy history and patient home medications list prior to surgery/procedure/anesthetic and documented any changes. Performed airway and anesthesia risk assessments. Anesthesia Type Anesthesia Type: MAC History Source History Obtained from:: Patient and Chart Anesthesia Focused Assessment* Temperature: 97.9 F Pulse Rate: 80 Blood Pressure: 133/97 Respiratory Rate: 16 Pulse Ox: 100 Oxygen Delivery Method: Room Air Airway Assessment Mouth opens: >3 cm Mallampati Score: III Teeth Condition: Chipped/Broken Neck Range of motion (ROM): Full ROM Labs Anesthesia Preop lab: CBC WBC 7.2 K/mm3 (4.4-11.0) 12/18/24 14:51 12/18/24 RBC 5.27 M/mm3 (4.6-6.2) 12/18/24 14:51 12/18/24 Hgb 14.9 g/dL (13.0-16.5) 12/18/24 14:51 12/18/24 Hct 46.4 % (40-54) 12/18/24 14:51 12/18/24 Plt Count 231 K/mm3 (150-450) 12/18/24 14:51 12/18/24 CHEMISTRY Potassium 5.1 mmol/L (3.5-5.1) 12/18/24 14:51 12/18/24 Sodium 140 mmol/L (136-145) 12/18/24 14:51 12/18/24 BUN 18 mg/dL (7-18) 12/18/24 14:51 12/18/24 Creatinine 1.00 mg/dL (0.70-1.30) 12/18/24 14:51 12/18/24 Glucose 94 mg/dL (74-106) 12/18/24 14:51 12/18/24 TSH 1.410 uIU/mL (0.358-3.740) 12/18/24 14:51 12/05 02/26 COAG Pre-Assessment Diagnosis/Proposed Procedure Planned Operative Procedure(s): EGD, COLONOSCOPY Anesthesia History 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 When Was Last Pacemaker Check QUESTION #4 FULL TEXT: You/Your Family Experience fever (hyperthermia) with Anesthesia Last Oral Intake Last Oral intake: Last Oral Intake NPO since 06:00 06/30/25 13:08 Meds taken in AM with sips of No 06/30/25 13:08 water? Meds patient instructed to take am of surgery PONV PONV - vegetable sorter: PONV - vegetable sorter Female No 06/28/25 09:08 HX of Motion Sickness No 06/28/25 09:08 HX of N/V After Surgery No 06/28/25 09:08 Non-Smoker No 06/28/25 09:08 Duration of Surgery greater No 06/28/25 09:08 than 60 minutes Number of Risk Factors PONV Score Height & Weight Height & Weight: Anesthesia: Height & Weight Height 5 ft 8 in 06/30/25 13:08 Weight: 102 kg 06/30/25 13:08 Body Mass Index (BMI) 34.2 06/30/25 13:08 Respiratory Assessment Respiratory Assessment - vegetable sorter: Respiratory Tract Infection Hx - vegetable sorter Hx Respiratory Tract Infection No 06/28/25 09:08 STOP Sleep Apnea STOP Sleep Apnea - vegetable sorter: STOP Sleep Apnea - vegetable sorter Hx Hypertension Yes: ON MEDS 06/28/25 09:08 Hx Sleep Apnea No 06/28/25 09:08 CPAP BIPAP Do you snore loudly (louder No 06/28/25 09:08 than talking or can be heard Do you often feel tired/ No 06/28/25 09:08 fatigued/ sleepy during daytime? Has anyone observed you stop No 06/28/25 09:08 breathing during sleep? STOP Results Negative 06/28/25 09:08 QUESTION #5 FULL TEXT : Do you snore loudly (louder than talking or can be heard through closed doors)? 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 Specify any problems Hx of Preganancy in last 3 N/A 06/28/25 09:08 Months Nurse Filling Out Transfusion JZOLLINGE 06/28/25 09:08 & Questions: Date: 06/28/25 06/28/25 09:08 Time: 09:11 06/28/25 09:08 Patient unable to answer at this time (ie. confused, unrespo /Reproduction History /Reproductive History - vegetable sorter: /Reproductive Hx- vegetable sorter Hx Now No 06/28/25 09:08 Gestational Age (in weeks): EDC: Hx Hx Para Hx Section SAB No 06/28/25 09:08 Active Medications Active Medications: Current Medications Generic Name Dose Route Start Last Admin Trade Name Freq PRN Reason Stop Dose Admin Lactated Ringer's 1,000 mls @ 15 mls/hr 06/30/25 13:00 06/30/25 13:16 IV 15 mls/hr .Q48H JEFF Administration PFSH Medical History (Updated 06/28/25 @ 09:18 by Eileen Kendall) Gastric reflux Heartburn Wears glasses Smoker Seizure Asthma HTN (hypertension) Home Medications ?Medication ?Instructions ?Recorded ?Last Taken ?Type albuterol sulfate 90 mcg/actuation 2 puff inhalation Q 4H PRN 11/15/22 Unknown Rx aerosol inhaler shortness of breath or wheez ing #6.7 grams ondansetron HCl 4 mg tablet 4 mg PO Q8H PRN nausea and 05/28/25 Unknown Rx vomiting #4 tabs lisinopril 10 mg tablet 20 mg PO DAILY 06/28/25 0804/28 History Allergy/AdvReac Type Severity Reaction Status Date / Time Penicillins (PCN) Allergy Hives Verified 06/30/25 13:07 Surgical History (Updated 06/28/25 @ 09:08 by Eileen Kendall) History of ankle surgery Social History Smoking Status: Current every day smoker tobacco type: cigarettes Review of Systems (Anesthesia) ROS Narrative System reviewed and no additional complaints, except as documented. 06/30/25 [id number] <Electronically signed by Bharathi Park> Date _ Bharathi Moreno Signature: Date CC: ~ Signed [facility] Work Phone: [phone]) 222-211308-27-2025 Procedure note [facility] Medical Records Department [address] [place] [address] Colonoscopy Report MR#: [id number] Acct: [id number] Name: MERRITT DUTTON II Rep #:[id number] : 1975 49 From: Tommy Pitts DO PCP: Dr. Ole Thompson MD Status:REG SD C Patient Name: Merritt Dutton Procedure Date: 06/30/2025 2:53 PM Date of : 1975 Age: 49 Procedure: Colonoscopy Indications: Screening for colorectal malignant neoplasm Providers: Tommy Pitts DO Referring MD: Ole Thompson Md Medicines: Monitored Anesthesia Care Patient Profile: This is a 49 year old male. Refer to note in patient chart for documentation of history and physical. Patient has symptoms of acute left upper quadrant abdominal pain, chronic epigastric abdominal pain, acute dyspepsia, chronic heartburn and chronic nausea. Last Colonoscopy: none. The patient's first colonoscopy is today. Complications: No immediate complications. Procedure: Pre-Anesthesia Assessment: - Prior to the procedure, a History and Physical was performed, and patient medications and allergies were reviewed. The patient is competent. The risks and benefits of the procedure and the sedation options and risks were discussed with the patient. All questions were answered and informed consent was obtained. Patient identification and proposed procedure were verified by the physician in the pre-procedure area. Mental Status Examination: alert and oriented. Airway Examination: normal oropharyngeal airway and neck mobility. Respiratory Examination: clear to auscultation. CV Examination: normal. Prophylactic Antibiotics: The patient does not require prophylactic antibiotics. Prior Anticoagulants: The patient has taken no anticoagulant or antiplatelet agents. ASA Grade Assessment: II - A patient with mild systemic disease. After reviewing the risks and benefits, the patient was deemed in satisfactory condition to undergo the procedure. The anesthesia plan was to use monitored anesthesia care (MAC). Immediately prior to administration of medications, the patient was re-assessed for adequacy to receive sedatives. The heart rate, respiratory rate, oxygen saturations, blood pressure, adequacy of pulmonary ventilation, and response to care were monitored throughout the procedure. The physical status of the patient was re-assessed after the procedure. After I obtained informed consent, the scope was passed under direct vision. Throughout the procedure, the patient's blood pressure, pulse, and oxygen saturations were monitored continuously. The Colonoscope was introduced through the anus and advanced to the cecum, identified by appendiceal orifice and ileocecal valve. The colonoscopy was performed with ease. The patient tolerated the procedure well. The quality of the bowel preparation was adequate. The ileocecal valve, appendiceal orifice, and rectum were photographed. Scope In: 2:54:45 PM Scope Withdrawal Time 0 hours 7 minutes 26 seconds Scope Out: 3:06:16 PM Total Procedure Duration Time 0 hours 11 minutes 31 seconds Findings: The perianal and digital rectal examinations were normal. A few small-mouthed diverticula were found in the recto-sigmoid colon, sigmoid colon and descending colon. There was narrowing of the colon in association with the diverticular opening. There was evidence of diverticular spasm. The exam was otherwise without abnormality on direct and retroflexion views. Impression: - Mild diverticulosis in the recto-sigmoid colon, in the sigmoid colon and in the descending colon. There was narrowing of the colon in association with the diverticular opening. There was evidence of diverticular spasm. - The examination was otherwise normal on direct and retroflexion views. - No specimens collected. Recommendation: - Discharge patient to home. - Resume previous diet. - Continue present medications. - Repeat colonoscopy in 10 years for screening purposes. Procedure Code(s): --- Professional --- G0121, Colorectal cancer screening; colonoscopy on individual not meeting criteria for high risk CPT copyright 2021 [employer]. All rights reserved. The codes documented in this report are preliminary and upon door fitter review may be revised to meet current compliance requirements. Tommy Pitts DO 06/30/2025 3:24:39 PM This report has been signed electronically. Number of Addenda: 0 Note Initiated On: 06/30/2025 2:53 PM 06/30/25 1524 Date _ Tommy Lopez Signature: Date (if indicated) CC: Dr. Ole Thompson MD; Tommy Pitts DO ~ Date Dictated: 06/30/25 1453 Date Transcribed: Oss Architect: RF Signed [facility]08-27-2025 Procedure note [facility] Medical Records Department [address] [place] [address] Provation Physician Letter MR#: [id number] Acct: [id number] Name: MERRITT DUTTON II Rep #:[id number] : 1975 49 From: Tommy Pitts DO PCP: Dr. Ole Thompson MD Status:REG SD C 06/30/2025 Ole Thompson Md Re : Colonoscopy procedure for Merritt Dutton Dear Jay This procedure was performed on Monday, June 30, 2025. My impressions and recommendations are as follows: Impressions : - Mild diverticulosis in the recto-sigmoid colon, in the sigmoid colon and in the descending colon. There was narrowing of the colon in association with the diverticular opening. There was evidence of diverticular spasm. - The examination was otherwise normal on direct and retroflexion views. - No specimens collected. Recommendations : - Discharge patient to home. - Resume previous diet. - Continue present medications. - Repeat colonoscopy in 10 years for screening purposes. My findings are described in the full procedure note, which is enclosed. If I can be of further assistance, please feel free to contact me at . Sincerely, Tommy Pitts DO 06/30/2025 3:24:39 PM This report has been signed electronically. 06/30/25 1525 Date _ Tommy Whippleignalice Signature: Date (if indicated) CC: Dr. Ole Thompson MD; Tommy Pitts DO ~ Date Dictated: 06/30/25 1453 Date Transcribed: Oss Architect: RF Signed [facility]08-27-2025 Procedure note [facility] Medical Records Department [address] [place] [address] Provation Physician Letter MR#: [id number] Acct: [id number] Name: MERRITT DUTTON II Rep #:[id number] : 1975 49 From: Tommy Pitts DO PCP: Dr. Ole Thompson MD Status:REG SD C 06/30/2025 Ole Thompson Md Re : Upper GI endoscopy procedure for Merritt Dutton Dear Jay This procedure was performed on Monday, June 30, 2025. My impressions and recommendations are as follows: Impressions : - Z-line irregular, 40 cm from the incisors. Biopsied. - Erythematous mucosa in the prepyloric region of the stomach and pylorus. Biopsied. - Erythematous duodenopathy. Biopsied. Recommendations : - Discharge patient to home. - Resume previous diet. - Continue present medications. - Await pathology results. My findings are described in the full procedure note, which is enclosed. If I can be of further assistance, please feel free to contact me at . Sincerely, Tommy Pitts DO 06/30/2025 3:20:20 PM This report has been signed electronically. 06/30/25 1520 Date _ Tommy Lopez Signature: Date (if indicated) CC: Dr. Ole Thompson MD; Tommy Pitts DO ~ Date Dictated: 06/30/25 1443 Date Transcribed: Oss Architect: RF Signed [facility]08-27-2025 Procedure note [facility] Medical Records Department [address] [place] [address] EGD Report MR#: [id number] Acct: [id number] Name: MERRITT DUTTON II Rep #:[id number] : 1975 49 From: Tommy Pitts DO PCP: Dr. Ole Thompson MD Status:REG SD C Patient Name: Merritt Dutton Procedure Date: 06/30/2025 2:43 PM Date of : 1975 Age: 49 Procedure: Upper GI endoscopy Indications: Epigastric abdominal pain, Dyspepsia, Indigestion, Suspected esophageal reflux Providers: Tommy Pitts DO Referring MD: Ole Thompson Md Medicines: Monitored Anesthesia Care Patient Profile: This is a 49 year old male. Refer to note in patient chart for documentation of history and physical. Patient has symptoms of acute left upper quadrant abdominal pain, chronic epigastric abdominal pain, acute dyspepsia, chronic heartburn and chronic nausea. Complications: No immediate complications. Procedure: Pre-Anesthesia Assessment: - Prior to the procedure, a History and Physical was performed, and patient medications and allergies were reviewed. The patient is competent. The risks and benefits of the procedure and the sedation options and risks were discussed with the patient. All questions were answered and informed consent was obtained. Patient identification and proposed procedure were verified by the physician in the pre-procedure area. Mental Status Examination: alert and oriented. Airway Examination: normal oropharyngeal airway and neck mobility. Respiratory Examination: clear to auscultation. CV Examination: normal. Prophylactic Antibiotics: The patient does not require prophylactic antibiotics. Prior Anticoagulants: The patient has taken no anticoagulant or antiplatelet agents. ASA Grade Assessment: II - A patient with mild systemic disease. After reviewing the risks and benefits, the patient was deemed in satisfactory condition to undergo the procedure. The anesthesia plan was to use monitored anesthesia care (MAC). Immediately prior to administration of medications, the patient was re-assessed for adequacy to receive sedatives. The heart rate, respiratory rate, oxygen saturations, blood pressure, adequacy of pulmonary ventilation, and response to care were monitored throughout the procedure. The physical status of the patient was re-assessed after the procedure. After obtaining informed consent, the endoscope was passed under direct vision. Throughout the procedure, the patient's blood pressure, pulse, and oxygen saturations were monitored continuously. The Colonoscope was introduced through the mouth, and advanced to the third part of the duodenum. Small bowel enteroscopy was deemed necessary. The upper GI endoscopy was accomplished without difficulty. The patient tolerated the procedure well. Scope In: 2:50:09 PM Scope Out: 2:53:14 PM Total Procedure Duration Time 0 hours 3 minutes 5 seconds Findings: The Z-line was irregular and was found 40 cm from the incisors. Biopsies were taken with a cold forceps for histology. Verification of patient identification for the specimen was done. Estimated blood loss was minimal. Localized mildly erythematous mucosa without bleeding was found in the prepyloric region of the stomach and at the pylorus. Biopsies were taken with a cold forceps for histology. Verification of patient identification for the specimen was done. Estimated blood loss was minimal. Biopsies were taken with a cold forceps for Helicobacter pylori testing. Verification of patient identification for the specimen was done. Estimated blood loss was minimal. Patchy mildly erythematous mucosa without active bleeding and with no stigmata of bleeding was found in the duodenal bulb. Biopsies were taken with a cold forceps for histology. Verification of patient identification for the specimen was done. Estimated blood loss was minimal. A small hiatal hernia was present. Impression: - Z-line irregular, 40 cm from the incisors. Biopsied. - Erythematous mucosa in the prepyloric region of the stomach and pylorus. Biopsied. - Erythematous duodenopathy. Biopsied. Recommendation: - Discharge patient to home. - Resume previous diet. - Continue present medications. - Await pathology results. Procedure Code(s): --- Professional --- 30302, Small intestinal endoscopy, enteroscopy beyond second portion of duodenum, not including ileum; with biopsy, single or multiple CPT copyright 2021 [employer]. All rights reserved. The codes documented in this report are preliminary and upon door fitter review may be revised to meet current compliance requirements. Tommy Pitts DO 06/30/2025 3:20:20 PM This report has been signed electronically. Number of Addenda: 0 Note Initiated On: 06/30/2025 2:43 PM 06/30/25 1520 Date _ Tommy Pitts DO Cosigner Signature: Date (if indicated) CC: Dr. Ole Thompson MD; DO Chris Reeves Date Dictated: 06/30/25 1443 Date Transcribed: Oss Architect: RF Signed [facility]08-27-2025 Consult note [facility] Medical Records Department [address] [place] [address] Anesthesia Postop Eval I 06/30/25 1516 MR#: [id number] Acct: [id number] Name: MERRITT DUTTON II Rep #:[id number] : 1975 49 From: Jack Miller PCP: Dr. Ole Thompson MD Status:REG SD C Y Race: C Location: [place] [address] Anesthesia: Postop Eval I Current Vital Signs Temperature: 97.4 F Pulse Rate: 60 Blood Pressure: 109/74 Respiratory Rate: 16 Pulse Ox: 97 Oxygen Delivery Method: Room Air Assessment Airway patent: Yes Spontaneous unlabored respirations: Yes Mental status: Asleep nausea: No Vomiting: No Anesthesia Complication: No Fluid Hydration Crystalloid volume administer (ml): 600 Total IV fluid infused: 600 Progress Note Anesthesia document: Postop Eval 1 completed: Yes 06/30/251516 > Date _ Jack Moreno Signature: Date CC: ~ Signed [facility]08-27-2025 Consult note [facility] Medical Records Department [address] [place] [address] Pre-Anesthesia Evaluation 06/30/25 1330 MR#: [id number] Acct: [id number] Name: MERRITT DUTTON II Rep #:[id number] : 1975 49 From: Bharathi Henriquez MD PCP: Dr. Ole Thompson MD Status:REG SD C Y Race: C Location: [place] [address]- ASA Classification* ASA Classification ASA Classification: 2 Assessment & Plan Anesthesia* Anesthesia Assessment Anesthesia Assessment: Discussed sedation and/or anesthesia options, risks, benefits, and alternatives with patient/parents/legal guardian/POA. Questions invited. The patient/parents/legal guardian/POA seems to understand and agrees to proceedwith anesthesia plan. Reviewed the physical assessment, medical history, allergy history and patient home medications list prior to surgery/procedure/anesthetic and documented any changes. Performed airway and anesthesia risk assessments. Anesthesia Type Anesthesia Type: MAC History Source History Obtained from:: Patient and Chart Anesthesia Focused Assessment* Temperature: 97.9 F Pulse Rate: 80 Blood Pressure: 133/97 Respiratory Rate: 16 Pulse Ox: 100 Oxygen Delivery Method: Room Air Airway Assessment Mouth opens: >3 cm Mallampati Score: III Teeth Condition: Chipped/Broken Neck Range of motion (ROM): Full ROM Labs Anesthesia Preop lab: CBC WBC 7.2 K/mm3 (4.4-11.0) 12/18/24 14:51 12/18/24 RBC 5.27 M/mm3 (4.6-6.2) 12/18/24 14:12/18/24 Hgb 14.9 g/dL (13.0-16.5) 12/18/24 14:51 12/18/24 Hct 46.4 % (40-54) 12/18/24 14:51 12/18/24 Plt Count 231 K/mm3 (150-450) 12/18/24 14:51 12/18/24 CHEMISTRY Potassium 5.1 mmol/L (3.5-5.1) 12/18/24 14:51 12/18/24 Sodium 140 mmol/L (136-145) 12/18/24 14:51 12/18/24 BUN 18 mg/dL (7-18) 12/18/24 14:51 12/18/24 Creatinine 1.00 mg/dL (0.70-1.30) 12/18/24 14:51 12/18/24 Glucose 94 mg/dL (74-106) 12/18/24 14:51 12/18/24 TSH 1.410 uIU/mL (0.358-3.740) 12/18/24 14:51 12/05 02/26 COAG Pre-Assessment Diagnosis/Proposed Procedure Planned Operative Procedure(s): EGD, COLONOSCOPY Anesthesia History 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 When Was Last Pacemaker Check QUESTION #4 FULL TEXT: You/Your Family Experience fever (hyperthermia) with Anesthesia Last Oral Intake Last Oral intake: Last Oral Intake NPO since 06:00 06/30/25 13:08 Meds taken in AM with sips of No 06/30/25 13:08 water? Meds patient instructed to take am of surgery PONV PONV - vegetable sorter: PONV - vegetable sorter Female No 06/28/25 09:08 HX of Motion Sickness No 06/28/25 09:08 HX of N/V After Surgery No 06/28/25 09:08 Non-Smoker No 06/28/25 09:08 Duration of Surgery greater No 06/28/25 09:08 than 60 minutes Number of Risk Factors PONV Score Height & Weight Height & Weight: Anesthesia: Height & Weight Height 5 ft 8 in 06/30/25 13:08 Weight: 102 kg 06/30/25 13:08 Body Mass Index (BMI) 34.2 06/30/25 13:08 Respiratory Assessment Respiratory Assessment - vegetable sorter: Respiratory Tract Infection Hx - vegetable sorter Hx Respiratory Tract Infection No 06/28/25 09:08 STOP Sleep Apnea STOP Sleep Apnea - vegetable sorter: STOP Sleep Apnea - vegetable sorter Hx Hypertension Yes: ON MEDS 06/28/25 09:08 Hx Sleep Apnea No 06/28/25 09:08 CPAP BIPAP Do you snore loudly (louder No 06/28/25 09:08 than talking or can be heard Do you often feel tired/ No 06/28/25 09:08 fatigued/ sleepy during daytime? Has anyone observed you stop No 06/28/25 09:08 breathing during sleep? STOP Results Negative 06/28/25 09:08 QUESTION #5 FULL TEXT : Do you snore loudly (louder than talking or can be heard through closeddoors)? 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 Specify any problems Hx of Preganancy in last 3 N/A 06/28/25 09:08 Months Nurse Filling Out Transfusion JZOLLSEYMOUR 06/28/25 09:08 & Questions: Date: 06/28/25 06/28/25 09:08 Time: 09:11 06/28/25 09:08 Patient unable to answer at this time (ie. confused, unrespo /Reproduction History /Reproductive History - vegetable sorter: /Reproductive Hx- vegetable sorter Hx Now No 06/28/25 09:08 Gestational Age (in weeks): EDC: Hx Hx Para Hx Section SAB No 06/28/25 09:08 Active Medications Active Medications: Current Medications Generic Name Dose Route Start Last Admin Trade Name Freq PRN Reason Stop Dose Admin Lactated Ringer's 1,000 mls @ 15 mls/hr 06/30/25 13:00 06/30/25 13:16 IV 15 mls/hr .Q48H JEFF Administration PFSH Medical History (Updated 06/28/25 @ 09:18 by Eileen Kendall) Gastric reflux Heartburn Wears glasses Smoker Seizure Asthma HTN (hypertension) Home Medications ?Medication ?Instructions ?Recorded ?Last Taken ?Type albuterol sulfate 90 mcg/actuation 2 puff inhalation Q 4H PRN 11/15/22 Unknown Rx aerosol inhaler shortness of breath or wheez ing #6.7 grams ondansetron HCl 4 mg tablet 4 mg PO Q8H PRN nausea and 05/28/25 Unknown Rx vomiting #4 tabs lisinopril 10 mg tablet 20 mg PO DAILY 06/28/25 08/04/28 History Allergy/AdvReac Type Severity Reaction Status Date / Time Penicillins (PCN) Allergy Hives Verified 06/30/25 13:07 Surgical History (Updated 06/28/25 @ 09:08 by Eileen Kendall) History of ankle surgery Social History Smoking Status: Current every day smoker tobacco type: cigarettes Review of Systems (Anesthesia) ROS Narrative System reviewed and no additional complaints, except as documented. 06/30/25 1331 D> Date _ Bharathi Moreno Signature: Date CC: ~ Signed [facility]07-25-2025 Evaluation note* Diagnosis Onset Date Resolution Status Admit Date Encounter for screening colonoscopy acute May 28, 2025 3:06pm Epigastric abdominal pain acute May 28, 2025 3:06pm [facility] Work Phone: 1(896) 659-300401-16-2024 Discharge summary Author Erwin Huitron [facility] November 19, 2023 8:51pm Note Date/Time November 19, 2023 7 :45pm [facility] Medical Records Department [address] [place] [address] Emergency Department Summary 11/19/23 MR#: [id number] Acct: [id number] Name: MERRITT DUTTON II Rep #:[id number] : 1975 48 From: Erwin Huitron MD PCP: Ame Fenton, DO Status:REG E R Location: ED HPI History of Present Illness Chief Complaint: Laceration Informant: patient and family Narrative Narrative: Patient accidentally got his left dominant hand ring finger tip stuck between a pipe and a toolbox that he was pushing. Last tetanus unknown. Had small amountof bleeding which is stopped. No other injury. No loss of function but it doeshurt to move it or press or touch it. This happened shortly before arrival. [facility] Medical History Asthma HTN (hypertension) Seizure Home Medications lisinopril 10 mg tablet 10 mg PO DAILY #30 tabs 04/30/16 [Rx Last Taken Unknown] losartan 50 mg tablet 50 mg PO DAILY #30 tabs 12/14/21 [Rx Last Taken Unknown] albuterol sulfate 90 mcg/actuation aerosol inhaler 2 puff inhalation Q4H PRN shortness of breath or wheezing #6.7 grams 11/15/22 [Rx Last Taken Unknown] benzonatate 100 mg capsule 200 mg (2 x 100 mg) PO TID PRN PRN Cough #20 [id number]/12/23 [Rx Last Taken Unknown] ondansetron 4 mg disintegrating tablet 4 mg PO Q8H PRN nausea and vomiting 3 days #9 tabs 02/21/23 [Rx Last Taken Unknown] pantoprazole 40 mg tablet,delayed release (Protonix) 40 mg PO DAILY #30 tabs 04/19/23 [Rx Last Taken Unknown] sucralfate 1 gram tablet (Carafate) 1 g PO BID #14 tabs 10/04/23 [Rx Last Taken Unknown] Allergy/AdvReac Type Severity Reaction Status Date / Time Penicillins [PCN] Allergy Hives Verified 11/19/23 18:51 Social History Smoking Status: Current every day smoker tobacco type: cigarettes ROS ROS ED Constitutional Constitutional ED: Denies chills or fever(s) Respiratory/Chest Respiratory/Chest: Denies cough Gastrointestinal Gastrointestinal: Denies nausea or vomiting Musculoskeletal Musculoskeletal: Reports other Details: See history of present illness Integumentary Reports other Details: There is a break in the skin near the nail of the left ring finger. Neurologic Neurologic: Denies paresthesias or weakness Hematologic/Lymphatic Hematologic/Lymphatic: Denies easy bleeding or easy bruising Allergic/Immunologic Allergic/Immunologic ED: Denies urticaria EXAM Physical Exam Narrative Exam Narrative: General: Patient awake alert sitting comfortably on bed. HEENT shows no sign of trauma Cardiorespiratory shows easy unlabored breathing. Extremities do show some clotted blood around the tip of the left ring finger. It is mostly on the dorsal medial side. It looks like there may be laceration right at the edge of the nail. It does not look like there is anything that can be sutured but we are going to clean this to get a slightly better view. Patient stating that he really does not think he can be sutured and does not want it sutured. His range of motion including both deep and profundus as well as the extensor tendons are intact. Sensations seems intact all the way out to the tip. Const Vital Signs: 11/19/23 18:51 Temperature 96.9 F L Temperature Source Temporal Pulse Rate 104 H Respiratory Rate 18 Blood Pressure 160/115 H Blood Pressure Mean 130 Pulse Ox 97 Oxygen Delivery Method Room Air MDM MDM MDM Narrative Medical decision making narrative: FingerMy independent interpretation of the patient's three-view x-ray of the left index finger shows slight cortical angulation but no gross fracture. No significant comminution even if there is a small fracture. Final reading shows no acute process. Was soaked scrubbed and cleaned. There is nothing that opens up or needs to be sutured. He does not want anything sutured. This should heal well. I do not think he needs antibiotics. We discussed reasons to return and signs of infection. Discharge Plan Triage Chief Complaint: Laceration ED Provider: Erwin Huitron Dx/Rx/DC Orders Clinical Impression: Crush injury to finger Instructions: ED Crush Injury, Hand Prescriptions: No Action lisinopril 10 MG tablet 10 mg PO DAILY Qty: 30 0RF losartan 50 mg tablet 50 mg PO DAILY Qty: 30 0RF albuterol sulfate 90 mcg/actuation HFA aerosol inhaler 2 puff inhalation Q4H PRN (Reason: shortness of breath or wheezing) Qty: 6.7 0RF benzonatate [benzonatate] 100 mg capsule 200 mg PO TID PRN PRN (Reason: Cough) Qty: 20 0RF ondansetron 4 mg tablet,disintegrating 4 mg PO Q8H PRN (Reason: nausea and vomiting) 3 Days Qty: 9 0RF pantoprazole [Protonix] 40 mg tablet,delayed release (DR/EC) 40 mg PO DAILY Qty: 30 0RF sucralfate [Carafate] 1 gram tablet 1 g PO BID Qty: 14 0RF Primary Care Provider: Ame Fenton Referrals: Ame Fenton, [Primary Care Provider] - 1 Week if not improving Disposition Disposition: Home, Self Care Capacity 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 Next of kin: [place] law dictates a PRIORITY LIST for identifying legal decision-maker/legal next of kin in the following order (LNOK): 1st: The patient?s legal guardian, if any 2nd: The patient's spouse (if status is questionable, consult Risk Management) 3rd: The patient?s adult child(marianela) (majority, if multiple children) 4th: The patient?s parents 5th: The patient?s adult siblings (majority, if multiple children siblings) What to do if you have Problems For any increased pain, shortness of breath, bleeding, nausea or vomiting, chestpain, or any unexpected problems, contact your Primary Care Provider. Call [facility] ([phone]) or report to the closest Emergency Room. Call 911 if necessary. 11/19/232050 <Electronically signed by Erwin Huitron MD> Cosigner Signature (if applicable): CC: Ame Fenton DO ~ Signed [facility] Work Phone: 1(248) 197-388712-01-2023 Discharge summary Author Erwin Huitron [facility] October 04, 2023 1:11am Note Date/Time October 03, 2023 11:16pm [facility] Medical Records Department [address] [place] [address] Emergency Department Summary 10/03/23 MR#: [id number] Acct: [id number] Name: KAREEN CHANTALMERRITT LINDSEY Rep #:[id number] : 1975 48 From: Erwin Huitron MD PCP: Ame Fenton, DO Status:REG E R Location: ED HPI HPI - GI History of Present Illness Chief Complaint: GI Bleed Informant: patient Narrative Narrative: Patient states that he vomited once with blood earlier this evening. He feels fine now. Patient states he was bowling. He was not drinking. He does not drink anymore. He had stepped outside for a minute. He suddenly felt nauseated. He vomited. He states he vomited blood 1 time. It was red. There is no black material. Hedoes not have abdominal pain. He has no nausea now. He has not been having black or bloody stools. No change in his diet. It sounds like he is on Protonix and is taking it. He has had an EGD. He is not exactly sure when thatwas. He is not on any blood thinners including no aspirin. [facility] Medical History Asthma HTN (hypertension) Seizure Home Medications lisinopril 10 mg tablet 10 mg PO DAILY #30 tabs 04/30/16 [Rx Last Taken Unknown] losartan 50 mg tablet 50 mg PO DAILY #30 tabs 12/14/21 [Rx Last Taken Unknown] albuterol sulfate 90 mcg/actuation aerosol inhaler 2 puff inhalation Q4H PRN shortness of breath or wheezing #6.7 grams 11/15/22 [Rx Last Taken Unknown] benzonatate 100 mg capsule 200 mg (2 x 100 mg) PO TID PRN PRN Cough #20 [id number]/12/23 [Rx Last Taken Unknown] ondansetron 4 mg disintegrating tablet 4 mg PO Q8H PRN nausea and vomiting 3 days #9 tabs 02/21/23 [Rx Last Taken Unknown] pantoprazole 40 mg tablet,delayed release (Protonix) 40 mg PO DAILY #30 tabs 04/19/23 [Rx Last Taken Unknown] sucralfate 1 gram tablet (Carafate) 1 g PO BID #14 tabs 10/04/23 [Rx Last Taken Unknown] Allergy/AdvReac Type Severity Reaction Status Date / Time Penicillins [PCN] Allergy Hives Verified 10/03/23 22:33 Social History Smoking Status: Current every day smoker tobacco type: cigarettes ROS ROS ED ROS Narrative A complete review of systems was performed and is negative except as documented in the history of present illness. Some specific details below. Constitutional: No recent fevers or chills. EYE: No visual complaints or pain. ENT: No difficulty swallowing. No swelling. No pain. CV: No chest pain or palpitations. Respiratory: No dyspnea. No hemoptysis. No difficulty taking breaths. GI: Please see history of present illness. : No frequency dysuria or hematuria. Musculoskeletal: No recent trauma. No pains. Skin: No rash. Nondiaphoretic. Neuro: No weakness or numbness. Endocrine: No polyuria or polydipsia. EXAM Physical Exam Narrative Exam Narrative: CONSTITUTIONAL: Patient is nontoxic in appearance. The patient looks comfortable. Does not look pale or diaphoretic HEENT: No notable trauma. Mucous membranes moist. No sinus tenderness. No indication of pain with swallowing. No nasal bleeding. EYES: No conjunctival injection. No proptosis. No pallor. No icterus. CARDIOVASCULAR: Regular rate. Regular rhythm. No notable murmur. No JVD. RESPIRATORY: No respiratory distress. Breathing is unlabored. No wheezes. No rhonchi. No rales. No pain with a deep breath. GASTROINTESTINAL: Not distended. Bowel sounds are normal. No tenderness. No guarding. No rebound. No palpable mass. No bruit. Overall his abdomen is completely benign. GENITOURINARY: No tenderness over the bladder. No CVA tenderness. MUSCULOSKELETAL: Atraumatic. No peripheral edema. No cord. No tenderness along the deep venous system. No asymmetry. NEUROLOGICAL: Patient is alert and appropriate. No focal deficit noted. SKIN: No noted rashes. No diaphoresis. PSYCHIATRIC: Patient is calm. Mood is appropriate. Const Vital Signs: 10/03/23 22:33 Temperature 98.2 F Temperature Source Temporal Pulse Rate 109 H Respiratory Rate 18 Blood Pressure 141/87 H Blood Pressure Mean 105 Pulse Ox 98 Oxygen Delivery Method Room Air MDM MDM MDM Narrative Medical decision making narrative: Patient CBC is normal other than a minimal nonspecific elevation of the white count at 11.6. Patient's electrolytes are overall normal. Minimal elevation in the BUN. Patient's liver function test are normal. I went back checked the patient. He is still asymptomatic. He has no nausea or pain. The event has not recurred. His exam is still benign. I explained he should stay on his Protonix. I will write for some Carafate. If he has recurrent bleeding or develops pain fevers or other symptoms he should return. Otherwise he can follow-up with his physician. Lab Data Attestation: I reviewed the patient's lab results. Labs: Laboratory Results - last 24 hr 10/03/23 10/04/23 22:58 00:20 WBC 11.6 H RBC 5.29 Hgb 15.0 Hct 44.5 MCV 84.1 MCH 28.4 MCHC 33.7 RDW Std Deviation 38.6 RDW Coeff of Desmond 12.7 Plt Count 278 MPV 10.3 Immature Gran % (Auto) 0.300 Neut % (Auto) 64.7 Lymph % (Auto) 28.1 Pepin % (Auto) 5.4 Eos % (Auto) 0.9 Baso % (Auto) 0.6 Absolute Neuts (auto) 7.5 Absolute Lymphs (auto) 3.27 Nucleated RBC % 0 Sodium Cancelled 137 Potassium Cancelled 4.3 Chloride Cancelled 105 Carbon Dioxide Cancelled 28.0 Anion Gap Cancelled 4 L BUN Cancelled 20 H Creatinine Cancelled 1.01 Estim Creat Clear Calc Cancelled 84.53 Est GFR (MDRD) Af Amer Cancelled 102 Est GFR (MDRD) Non-Af Cancelled 84 BUN/Creatinine Ratio Cancelled 19.8 Glucose Cancelled 105 Calcium Cancelled 9.3 Total Bilirubin Cancelled 0.30 AST Cancelled 14 L ALT Cancelled 19 Alkaline Phosphatase Cancelled 61 Total Protein Cancelled 7.9 Albumin Cancelled 3.9 Globulin Cancelled 4.0 Albumin/Globulin Ratio Cancelled 1.0 Discharge Plan Triage Chief Complaint: GI Bleed ED Provider: Erwin Huitron Dx/Rx/DC Orders Clinical Impression: Family history of GERD, Hematemesis Instructions: ED Upper GI Bleeding (Stable) Prescriptions: New sucralfate [Carafate] 1 gram tablet 1 g PO BID Qty: 14 0RF No Action lisinopril 10 MG tablet 10 mg PO DAILY Qty: 30 0RF losartan 50 mg tablet 50 mg PO DAILY Qty: 30 0RF albuterol sulfate 90 mcg/actuation HFA aerosol inhaler 2 puff inhalation Q4H PRN (Reason: shortness of breath or wheezing) Qty: 6.7 0RF benzonatate [benzonatate] 100 mg capsule 200 mg PO TID PRN PRN (Reason: Cough) Qty: 20 0RF ondansetron 4 mg tablet,disintegrating 4 mg PO Q8H PRN (Reason: nausea and vomiting) 3 Days Qty: 9 0RF pantoprazole [Protonix] 40 mg tablet,delayed release (DR/EC) 40 mg PO DAILY Qty: 30 0RF Primary Care Provider: Ame Fenton Referrals: Ame Fenton, [Primary Care Provider] - 3-5 Days Disposition Disposition: Home, Self Care What to do if you have Problems For any increased pain, shortness of breath, bleeding, nausea or vomiting, chestpain, or any unexpected problems, contact your Primary Care Provider. Call [facility] ([phone]) or report to the closest Emergency Room. Call 911 if necessary. 10/04/23 0111 <Electronically signed by Erwin Huitron MD> Cosigner Signature (if applicable): CC: Ame Fenton DO ~ Signed [facility] Work Phone: [phone]) 451-296802-09-2022 NoteHNO ID: [id number] Author: Ethel Nguyen PA-C Service: ? Author Type: Physician Manager Laundry Type: Progress Notes Filed: 12/13/2021 6:36 PM Note Text: This note was created using MyEveTabriter. Subjective Merritt Dutton is a 46 year old male. [...] able to fully evaluate this here at [facility] care. Recommended he be seen in the ED. Dad will take him to [facility] ed. [facility]01-15-2022 NoteHNO ID: [id number] Author: Chante Mora APRN.CIGARET[employer] VENDOR Service: ? Author Type: Nurse Practitioner Type: Progress Notes Filed: 11/18/2021 2:00 PM Note Text: This note was created using NoteWriter. Subjective Merritt Dutton is a 46 year old male. [...] history is provided by the patient. 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 URI He complains of cough. [...] sounds. No murmu (more content not included)... [facility] note Author Jack Miller [facility] Note Date/Time June 30, 2025 3: 17pm [facility] Medical Records Department [address] [place] [address] Anesthesia Postop Eval I 06/30/251515 MR#: [id number] Acct: [id number] Name: MERRITT DUTTON II Rep #:[id number] : 1975 49 From: Jack Miller PCP: Dr. Ole Thompson MD Status:REG SD C Y Race: C Location: [place] [address] Anesthesia: Postop Eval I Current Vital Signs Temperature: 97.4 F Pulse Rate: 60 Blood Pressure: 109/74 Respiratory Rate: 16 Pulse Ox: 97 Oxygen Delivery Method: Room Air Assessment Airway patent: Yes Spontaneous unlabored respirations: Yes Mental status: Asleep nausea: No Vomiting: No Anesthesia Complication: No Fluid Hydration Crystalloid volume administer (ml): 600 Total IV fluid infused: 600 Progress Note Anesthesia document: Postop Eval 1 completed: Yes 06/30/251516 <Electronically signed by Jack Miller > Date _ Jack Moreno Signature: Date CC: ~ Signed [facility] Work Phone: Consult note Author Bharathi Henriquez [facility] Note Date/Time June 30, 2025 3: 57pm [facility] Medical Records Department [address] [place] [address] Anesthesia Postop Eval II 06/30/25 1556 MR#: [id number] Acct: [id number] Name: MERRITT DUTTON II Rep #:[id number] : 1975 49 From: Bharathi Henriquez MD PCP: Dr. Ole Thompson MD Status:REG SD C Y Race: C Location: [facility] Anesthesia Postop Eval I Sum Postop Eval Completion status Anesthesia document: Postop Eval 1 completed: Yes Anesthesia Postop Eval I Summary Anesthesia Postop Eval I Summary: Anesthesia Postop Eval I: Assessment Summary Airway patent Yes 06/30/25 15:17 [email or web address] Spontaneous unlabored Yes 06/30/25 15:17 [email or web address] respirations Mental status Asleep 06/30/25 15:17 [email or web address] nausea No 06/30/25 15:17 [email or web address] Vomiting No 06/30/25 15:17 [email or web address] Anesthesia Postop Eval I: Fluid Summary Crystalloid volume administer 600 06/30/25 15:17 [email or web address] (ml) Colloids volume administered ( ml) Blood Product volume administered (ml) Total IV fluid infused 600 06/30/25 15:17 [email or web address] Anesthesia Postop Eval I: Summary Notes Anesthesia Complication No 06/30/25 15:17 [email or web address] Anesthesia Complication Comment: Post-operative progress note Anesthesia: Postop Eval II Evaluation Mental status: Awake Pain Level: 0 nausea: No Vomiting: No Complications Anesthesia Complication: No 06/30/25 1557 <Electronically signed by Bharathi Park> Date _ Bharathi Henriquez MD Cosigner Signature: Date CC: ~ Signed [facility] Work Phone: Evaluation noteNo assessment information available [facility] Work Phone: Hospital Discharge instructions Additional Instructions Please follow-up with your PCP and the GI doctor. Return for any worsening of symptoms.[facility] Work Phone: Reason for referral (narrative)No reason for referral [facility] Work Phone: Summary Purpose Family History No Family History Records FoundNo Family History Records Found Advance Directives Advance Directive Response Recorded Date/ Time Living Will No November 15 9:44pm Power of Nursing Home Assistant No November 15, 2022 9:44pm Advance Directive Response Recorded Date/ Time Living Will No April 19, 2023 11:22am Power of Nursing Home Assistant No April 19 11:22am Advance Directive Response Recorded Date/ Time Living Will No October 03, 023 11:26pm Power of Nursing Home Assistant No October 03, 2023 11:26pm Advance Directive Response Recorded Date/ Time Living Will No November 19 7:21pm Power of Nursing Home Assistant No November 19, 2023 7:21pm Advance Directive Response Recorded Date/ Time Living Will No January 06, 2024 1:30am Power of Nursing Home Assistant No January 05 1:30am Advance Directive Response Recorded Date/ Time Do you have a Healthcare Power of Nursing Home Assistant? No June 28, 2025 9:08am Chief Complaint and Reason for Visit Chief Complaint COUGH Chief Complaint ABDOMINAL PAIN ABD PAIN Chief Complaint ABD Chief Complaint ABD laceration Chief Complaint ABD laceration sob Chief Complaint Admit Date GI ISSUES PRE EGD/COLONOSCOPY May 28, 2025 3:06pm Reason for Visit Admit Date Encounter for screening colonoscopy May 28, 2025 3:06pm Epigastric abdominal pain May 28 3:06pm Additional Source Comments (unrecognized sect ion and content) No Status Records FoundNo Status Records Found INFORMATION SOURCE (unrecogn ized section and content) DATE CREATED AUTHOR 01/25/2022 [facility] DATE CREATED AUTHOR 'Aracelis LOVING 06/29/2025 [facility] Goals (unrecognized section and content) Goals may be documented in a n alternate sectionGoals may be documented in an alternate sectionGoals may be documented in an alternate sectionGoals may be documented in an alternate sectionGoals may be documented in an alternate sectionGoals may be documented in an alternate sectionGoals may be documented in an alternate sectionGoals may be documented in an alternate section Care Teams (unrecognized sec tion and content) Team Status: Active Member Role Status Dates No Primary Care Physician Family Provider Active Ame Fenton , DO Primary Care Provider Active Team Status: Inactive Member Role Status Dates No Primary Care Physician Primary Care Provider Active Dr. Ellis Harris MD Attending Provider, Emergency Provider Active Team Status: Inactive Member Role Status Dates Ame Fenton , DO Primary Care Provi ritu, Attending Provider, Referring Provider Active Team Status: Inactive Member Role Status Dates Ame Fenton , DO Primary Care Provider Active Dr. Hermes Richmond , DO Attending Provider, Emergency P ramez Active Team Status: Inactive Member Role Status Dates Ame Fenton , DO Primary Care Provider Active Dr. Sergio Ellis , DO Emergency Provider Active Team Status: Inactive Member Role Status Dates Ame Fenton DO Primary Care Provider Active Dr. Erwin Huitron MD Emergency Provider Active Team Status: Inactive Member Role Status Dates Ame Fenton , DO Primary Care Provider Active Dr. Erwin Huitron MD Attending Provider, Emergency Provider Active Team Status: Inactive Member Role Status Dates Ame Fenton , DO Primary Care Provider Active Ole Thompson MD Attending Provider, Referring Provide r Active Team Status: Active Member Role/Relationship Status Dates No Primary Care Physician Family Provider Active Ole Thompson MD Primary Care Provider Active Team Status: Inactive Member Role/Relationship Status Dates Ole Thompson MD Primary Care Provider Active St art: May 28, 2025 End: May 28, 2025 Ole Thompson MD Referring Provider Active Start : May 28, 2025 End: May 28, 2025 MELCHOR Paulino Attending Provider Active S tart: May 28, 2025 End: May 28, 2025 Team Status: Active Member Role/Relationship Status Case Thompson MD Primary Care Provider Active Team Status: Inactive Member Role/Relationship Status Dates Ole Thompson MD Primary Care Provider Active St art: June 30, 2025 End: June 30, 2025 Ole Thompson MD Referring Provider Active Start : June 30, 2025 End: June 30, 2025 Dr. Tommy Pitts DO Attending Provider Active Start: June 30, 2025 End: June 30, 2025 Team Status: Active Member Role/Relationship Status Dates Ole Thompson MD Primary Care Provider Active St art: June 30, 2025 Dr. Tommy Pitts DO Attending Provider Active Start: June 30, 2025 FOR RECORDS PERTAINING TO PATIENTS WHO ARE [...] BE BASED ON THE PRIMARY CLINICAL RECORDS. [facility] [employer] [facility]. provides no warranty or guarantee of the accuracy or completeness of information in this document.
== END 2025-06-30 16:06 | disposition home or self-care (01) ==
LOC: EN 12:48 → AC 12:49
PROVIDERS: PCP Family Medicine; Referring Provider Family Medicine; Visit Provider Internal Medicine Gastroenterology
PROC: 0DJD8ZZ Inspection of Lower Intestinal Tract, Via Natural or Artificial Opening Endoscopic (ICD-10-PCS; CPT 45378; principal; 2025-06-30 13:55)
DX: Z12.11 Encounter for screening for malignant neoplasm of colon (principal); K31.A0 Gastric intestinal metaplasia, unspecified; R10.13 Epigastric pain; I10 Essential (primary) hypertension; K57.30 Diverticulosis of large intestine without perforation or abscess without bleeding; J45.909 Unspecified asthma, uncomplicated; K21.9 Gastro-esophageal reflux disease without esophagitis; Z79.899 Other long term (current) drug therapy; F17.210 Nicotine dependence, cigarettes, uncomplicated; K22.70 Barrett's esophagus without dysplasia
CPT/HCPCS: 44361; G0121; 88305; J2405

== ENCOUNTER → 2025-07-15 | Outpatient (CLI) | payer MEDICARE, MEDICAID, SELFPAY ==
--- NOTE | 2025-07-15 14:54 | ART_ITS ---
Reason For Study Reason For Study: Impaired circulation lower extremity Procedure A bilateral lower extremity continuous wave Doppler with analog waveform analysis and ankle brachial indexes. Left Segmental Pressures Left brachial= 117mmHg. Left posterior tibial artery = 148mmHg. Left dorsalis pedis artery = 144mmHg. Left digit = 100 mmHg. The left dorsalis pedis waveforms are triphasic. The left posterior tibial artery waveforms are triphasic. Right Segmental Pressures Right brachial= 119mmHg. Right posterior tibial artery = 149mmHg. Right dorsalis pedis artery = 150mmHg. Right digit = 109 mmHg. The right dorsalis pedis waveforms are triphasic. The right posterior tibial artery waveforms are triphasic. Indices The right ankle brachial index by the dorsalis pedis is 1.26. The right ankle brachial index by the posterior tibial artery is 1.25. The right digital-brachial index is 0.92. The left ankle brachial index by the dorsalis pedis is 1.21. The left ankle brachial index by the posterior tibial artery is 1.24. The left digital-brachial index is 0.84. VL/Ankle Brachial Index Interpretation Summary Triphasic Doppler waveforms are noted at ankle level bilaterally. Pulse-volume recordings appear satisfactory at ankle and digital level bilaterally. Resting ankle-brachial indices are normal bilate rally. Digital-brachial indices are normal bilaterally. There is no evidence of significant arterial occlusive disease in the lower ext remities bilaterally. Ordering Physician: Ole Thompson Referring Physician: OLE THOMPSON MD Performed By: OLI BURLESON T
== END | disposition home or self-care (01) ==
LOC: CVS 14:42
PROVIDERS: PCP Family Medicine; Referring Provider Family Medicine; Visit Provider Family Medicine
DX: R09.89 Other specified symptoms and signs involving the circulatory and respiratory systems (principal); I99.9 Unspecified disorder of circulatory system
CPT/HCPCS: 93922